=== PATIENT | female | born 1940 | race Caucasian/White ===

== ENCOUNTER 2018-02-25 08:52 | Emergency (ER) | payer MEDICARE, BC, SELFPAY ==
[2018-02-25 08:56] VITALS: BP 155/90; PULSE 80; RESP 12; TEMP 36.6; O2SAT 99
[2018-02-25 09:10] LABS: Bilirubin Negative (Negative); Blood Small (Negative); Clarity Clear; Glucose Negative (Negative); Ketones Negative (Negative); Leukocyte Esterase Small (Negative); Nitrite Negative (Negative); Specific Gravity <= 1.005 (1.005-1.025); Urobilinogen 0.2 EU/dL (Up TO 0.2)
[2018-02-25 09:21] LABS: Bacteria Few HPF (Negative); C & S Indicated? Yes; Casts Negative LPF (Negative); Crystals Negative HPF (Negative); Epithelial Cells Rare HPF (Negative); Mucus Negative (Negative); Other Cells Few Renal (Negative); RBC 0-2 (0-2); WBC 20-50 HPF (0-5)
--- NOTE | 2018-02-25 09:55 | ED.GENADUL ---
Disposition Clinical Impression: UTI (urinary tract infection) Disposition: HOME Instructions: Urinary Tract Infection in Women (ED) Additional Instructions: Please take antibiotic as prescribed. Please follow-up with your primary care physician. Return to the emergency department immediately for any worsening or new concerning symptoms. Prescriptions: Nitrofurantoin Monohyd/M-Cryst [Macrobid] 100 mg PO BID #9 cap Referrals: Missy Nur [Primary Care Provider] - Medical Decision Making - Lab Data Laboratory Tests 02/25/18 09:01 Urine Color Straw Urine Clarity Clear Urine pH 6.0 Ur Specific Candia <= 1.005 Urine Protein Negative Urine Ketones Negative Urine Blood Small H Urine Nitrite Negative Urine Bilirubin Negative Urine Urobilinogen 0.2 Ur Leukocyte Esterase Small H Urine RBC 0-2 Urine WBC 20-50 Ur Epithelial Cells Rare Urine Crystals Negative Urine Bacteria Few Urine Casts Negative Urine Mucus Negative Urine Other Few renal Ur Culture Indicated? Yes Urine Glucose Negative - Medical Decision Making 77-year-old female here with dysuria and frequent small urination over the past 2 days. Afebrile. Mild suprapubic abdominal tenderness. No flank pain or nausea vomiting. Plan to treat for urinary tract infection with Macrobid as patient has responded this in the past. History of Present Illness - General Chief complaint: Urinary Stated complaint: BLADDER INFECTION Time Seen by Provider: 02/25/18 09:34 Source: patient, RN notes reviewed Mode of arrival: ambulatory Limitations: no limitations - History of Present Illness Initial comments: 77-year-old female presents with chief complaint of urinary tract infection. Patient notes that she has had 2 days of painful urination and frequent small urination. Patient denies flank pain. No associated nausea or vomiting. No abdominal pain. No fever. Symptoms feel exactly the same where she has had a urinary tract infection in the past, years ago. Prior urinary tract infection responsive to Macrobid. - Related Data Esomeprazole Magnesium [Nexium] 40 mg PO DAILY tab-cap 12/13/13 Vit A/C/E AC/Znox/Cupric Oxide [Eye Vitamin-Minerals Tablet] 1 each PO DAILY 08/24/15 Aspirin [Aspir 81] 81 mg PO DAILY 11/25/17 Metoprolol [Lopressor] 50 mg PO BID 11/25/17 Rosuvastatin [Crestor] 20 mg PO QPM 11/25/17 Nitroglycerin [Nitrostat] 0.4 mg SL Q5 MIN PRN X3 PRN #0 11/26/17 Nitrofurantoin Monohyd/M-Cryst [Macrobid] 100 mg PO BID #9 cap 02/25/18 Allergies Allergy/AdvReac Type Severity Reaction Status Date / Time cyclobenzaprine Allergy Verified 02/25/18 08:58 Iodinated Contrast- Oral and Allergy Verified 02/25/18 08:58 IV Dye NSAIDS (Non-Steroidal Allergy Verified 02/25/18 08:58 Anti-Inflamma Review of Systems Constitutional: denies: fever Gastrointestinal: denies: abdominal pain, nausea, vomiting Genitourinary: dysuria, frequency. denies: hematuria Past Medical History - Past Medical History Medical history: CAD, cancer (breast), hyperlipidemia, hypertension Cerebral aneurysm Surgical history: angioplasty/stent - Social History Smoking status: former smoker General Exam - General Limitations: no limitations General appearance: alert, in no apparent distress - Eye Eye exam: Absent: scleral icterus, conjunctival injection - ENT ENT exam: Present: mucous membranes moist - Respiratory Respiratory exam: Present: normal lung sounds bilaterally. Absent: wheezes, rales, rhonchi - Cardiovascular Cardiovascular Exam: Present: regular rate, normal rhythm, normal heart sounds - GI/Abdominal GI/Abdominal exam: Present: soft, tenderness (Suprapubic), normal bowel sounds. Absent: distended, guarding, rebound, rigid, mass - Extremities Exam Extremities exam: Absent: pedal edema - Neurological Exam Neurological exam: Present: alert. Absent: altered - Skin Skin exam: Present: warm, dry, intact Course Vital Signs - 24 hr 02/25/18 08:56 Temperature 36.6 C Pulse 80 Respiratory 12 Rate Blood Pressure 155/90 Pulse Oximetry 99
[2018-02-25] MEDS: MacroBID 100 MG CAP PO (09:59)
[2018-02-25 10:12] VITALS: BP 155/90; PULSE 80; RESP 12; TEMP 36.6; O2SAT 99
== END 2018-02-25 10:13 | disposition home or self-care (01) ==
PROVIDERS: Emergency Provider Student in an Organized Health Care Education/Training Program; PCP Nurse Practitioner
DX: N39.0 Urinary tract infection, site not specified (principal); Z87.440 Personal history of urinary (tract) infections; I10 Essential (primary) hypertension
CPT/HCPCS: 99283 ×2; 81003; 81015; 87086

== ENCOUNTER 2018-03-23 00:26 | Outpatient (CLI) | payer MEDICARE, BC, SELFPAY ==
--- NOTE | 2018-03-23 13:45 | DI.MAMMO_ITS ---
SYMPTOMS/DIAGNOSIS: SCREENING, Z12.39, PERSONAL H/O BREAST CA, Z85.3 MAMMOGRAMS: Mammograms were interpreted according to the usual protocol including computer analysis with CAD system, tomosynthesis and C view imaging. Comparison is with the prior examinations. No masses or microcalcifications are seen. There is nothing to suggest malignancy. IMPRESSION: Negative mammogram. Routine screening is recommended. Category 1 , breast density C. MQSA ASSESSMENT OF FINDINGS: Negative. Category 1. Patient will receive a letter notifying them of these results. Bi-RADS category C. The breasts are heterogeneously dense, which may obscure small masses.
== END 2018-03-23 00:46 ==
PROVIDERS: PCP Nurse Practitioner; Visit Provider Nurse Practitioner
DX: Z12.31 Encounter for screening mammogram for malignant neoplasm of breast (principal); Z85.3 Personal history of malignant neoplasm of breast
CPT/HCPCS: 77063; 77067

== ENCOUNTER 2018-06-27 10:27 | Outpatient (CLI) | payer MEDICARE, BC, SELFPAY ==
[2018-06-27 10:50] LABS: Abs Immature Grans 0.02 k/cumm (0.0-0.09); Absolute Basophil Count 0.07 k/cumm (0.0-0.2); Absolute Eosinophil Count 0.25 k/cumm (0.0-0.7); Absolute Lymphocyte Count 2.01 k/cumm (1.2-3.4); Absolute Monocyte Count 0.73 k/cumm (0.11-0.7); Absolute Neutrophil Count 5.24 k/cumm (1.2-6.7); Basophils % 0.8; HCT 41.4 % (36.0-46.0); HGB 12.7 g/dL (12.0-15.5); Immature Grans % 0.2; Lymphocytes % 24.2; Mean Corp. HGB Concentration 30.7 g/dL (32.0-36.0); Mean Corpuscular Hemoglobin 30.1 pg (27.0-33.0); Mean Corpuscular Volume 98.1 fL (80-95); Mean Platelet Volume 10.1 fL (8.0-11.0); Monocytes % 8.8; Platelet Count 227 x1000/uL (130-400); RBC 4.22 m/cumm (4.00-5.20); RBC Distribution Width 12.9 % (11.7-14.6); White Blood Cell Count 8.32 k/cumm (4.4-10.8)
== END 2018-06-27 10:47 ==
PROVIDERS: PCP Nurse Practitioner; Visit Provider Nurse Practitioner
DX: R10.9 Unspecified abdominal pain (principal)
CPT/HCPCS: 36415; 85025

== ENCOUNTER 2018-06-27 10:38 | Outpatient (REF) | payer MEDICARE, BC, SELFPAY ==
[2018-06-27 13:18] LABS: Amylase 44 U/L (25-115); Lipase 177 U/L (73-393)
== END 2018-06-27 10:58 ==
LOC: NCHCN 10:38
PROVIDERS: PCP Nurse Practitioner; Visit Provider Nurse Practitioner
DX: R10.9 Unspecified abdominal pain (principal)
CPT/HCPCS: 83690; 82150

== ENCOUNTER → 2018-08-17 08:41 | Outpatient (BNVA) | payer MEDICARE, BC, SELFPAY | PROVIDERS: PCP Nurse Practitioner; Referring Provider Nurse Practitioner; Visit Provider Surgery | DX: R10.10 Upper abdominal pain, unspecified (principal); I10 Essential (primary) hypertension | CPT/HCPCS: 99214 ==

== ENCOUNTER 2018-12-08 03:55 | Outpatient (CLI) | payer MEDICARE, BC, SELFPAY ==
[2018-12-08 10:14] LABS: ALT 17 U/L (12-78); AST 23 U/L (15-37); Albumin 3.5 g/dL (3.4-5.0); Alkaline Phosphatase 138 U/L (46-116); Anion Gap 11.6 mmol/L (3-11); BUN 20 mg/dL (7-18); Bilirubin, Total 0.8 mg/dL (0.2-1.0); CO2 25.4 mmol/L (21.0-32.0); CREATININE 1.01 mg/dL (0.55-1.02); Calcium 8.7 mg/dL (8.5-10.1); Calculated LDL 93; Chloride 106 mmol/L (98-107); Cholesterol 169 mg/dL (50-200); Estimated GFR 53.15 (mL/min/1.73m2); Glucose 83 mg/dL (70-100); HDL Cholesterol 57 mg/dL (40-60); Potassium 4.4 mmol/L (3.5-5.1); Sodium 143 mmol/L (136-145); Total Protein 7.1 g/dL (6.4-8.2); Triglyceride 95 mg/dL (30-150)
== END 2018-12-08 04:15 ==
PROVIDERS: PCP Nurse Practitioner; Visit Provider Nurse Practitioner
DX: I10 Essential (primary) hypertension (principal); E78.5 Hyperlipidemia, unspecified
CPT/HCPCS: 36415; 80053; 80061; 83721

== ENCOUNTER 2018-12-31 13:09 | Outpatient (REF) | payer MEDICARE, BC, SELFPAY ==
[2018-12-31 15:14] LABS: Bilirubin Negative (Negative); Blood Trace-lysed (Negative); Clarity Clear (Clear); Glucose Negative (Negative); Ketones Negative (Negative); Leukocyte Esterase Small (Negative); Nitrite Negative (Negative); Specific Gravity <= 1.005 (1.005-1.025); Urobilinogen 0.2 EU/dL (Up TO 0.2); pH 6.5 (5-8)
[2018-12-31 15:24] LABS: Bacteria Rare HPF (Negative); C & S Indicated? Yes; Casts Negative LPF (Negative); Crystals Negative HPF (Negative); Epithelial Cells Rare HPF (Negative); Mucus Negative (Negative); RBC 0-2 (0-2)
== END 2018-12-31 13:29 ==
LOC: NCHCN 13:09
PROVIDERS: PCP Nurse Practitioner; Visit Provider Nurse Practitioner Family
DX: R30.0 Dysuria (principal)
CPT/HCPCS: 87077; 81003; 81015; 87086; 87186

== ENCOUNTER 2019-01-10 15:31 | Outpatient (REF) | payer MEDICARE, BC, SELFPAY ==
[2019-01-10 19:09] LABS: Bilirubin Negative (Negative); Blood Trace-lysed (Negative); Clarity Clear (Clear); Glucose Negative (Negative); Ketones Negative (Negative); Leukocyte Esterase Moderate (Negative); Nitrite Negative (Negative); Specific Gravity <= 1.005 (1.005-1.025); Urobilinogen 0.2 EU/dL (Up TO 0.2)
[2019-01-10 20:19] LABS: Epithelial Cells Negative HPF (Negative); WBC >50 HPF (0-5)
[2019-01-10 20:20] LABS: Bacteria Few HPF (Negative); C & S Indicated? Yes; Casts Negative LPF (Negative); Crystals Negative HPF (Negative); Mucus Negative (Negative); Other Cells Few Renal (Negative)
== END 2019-01-10 15:51 ==
LOC: NCHCN 15:31
PROVIDERS: PCP Nurse Practitioner; Visit Provider Nurse Practitioner Family
DX: N39.0 Urinary tract infection, site not specified (principal); R30.0 Dysuria
CPT/HCPCS: 87077; 81003; 81015; 87086; 87186

== ENCOUNTER 2019-03-29 01:32 | Outpatient (CLI) | payer MEDICARE, BC, SELFPAY ==
--- NOTE | 2019-03-29 14:10 | DI.MAMMO_ITS ---
EXAM: MG MAMMO SCREENING 60 MIN DUR CLINICAL HISTORY: SCREENING, PERSONAL H/O BREAST CA,Z85.3. TECHNIQUE: Mammograms were interpreted according to the usual protocol including computer analysis w [employer] CAD system, tomosynthesis and C-view imaging. COMPARISON: March 2018 FINDINGS: Breasts are of heterogeneously increased density with fairly symmetrical distribution of fibroglandul ar tissue. No dominant mass or clumped microcalcification is identified in either breast. Prior rig ht lumpectomy again noted. Comparison with previous examinations including March 2018 show no gr oss interval change in appearance of either breast. IMPRESSION: No specific evidence of malignancy at this time. Routine screening examinations are suggested at year ly intervals due to the history of breast carcinoma. Category 1, breast density category C. BI-RADS Cat 1 - Negative Breast Density - Category C - Heterogeneously dense
== END 2019-03-29 01:52 ==
PROVIDERS: PCP Nurse Practitioner; Visit Provider Nurse Practitioner
DX: Z12.31 Encounter for screening mammogram for malignant neoplasm of breast (principal); Z85.3 Personal history of malignant neoplasm of breast; Z98.890 Other specified postprocedural states
CPT/HCPCS: 77063; 77067

== ENCOUNTER 2019-10-11 01:54 | Outpatient (CLI) | payer MEDICARE, BC, SELFPAY ==
[2019-10-11 08:51] LABS: ALT 19 U/L (14-59); AST 20 U/L (15-37); Albumin 3.7 g/dL (3.4-5.0); Alkaline Phosphatase 131 U/L (46-116); Anion Gap 9.8 mmol/L (3-11); BUN 13 mg/dL (7-18); Bilirubin, Total 0.7 mg/dL (0.2-1.0); CO2 28.2 mmol/L (21.0-32.0); CREATININE 0.95 mg/dL (0.55-1.02); Calculated LDL 180 mg/dL (<100); Chloride 106 mmol/L (98-107); Cholesterol 276 mg/dL (<200); Estimated GFR 56.89 (mL/min/1.73m2); Glucose 93 mg/dL (74-106); HDL Cholesterol 59 mg/dL (40-60); Potassium 4.1 mmol/L (3.5-5.1); Sodium 144 mmol/L (136-145); Total Protein 7.6 g/dL (6.4-8.2); Triglyceride 188 mg/dL (<150)
== END 2019-10-11 02:14 ==
PROVIDERS: PCP Nurse Practitioner; Visit Provider Nurse Practitioner
DX: E78.5 Hyperlipidemia, unspecified (principal); I10 Essential (primary) hypertension
CPT/HCPCS: 36415; 80053; 80061

== ENCOUNTER 2020-04-10 03:50 | Outpatient (CLI) | payer MEDICARE, BC, SELFPAY ==
--- NOTE | 2020-04-10 13:55 | DI.MAMMO_ITS ---
EXAM: MG MAMMO SCREENING 60 MIN DUR CLINICAL HISTORY: SCREENING, Z12.39, PERSONAL H/O BREAST CA, Z85.3 TECHNIQUE: Mammograms were interpreted according to the usual protocol including computer analysis w [employer] CAD system, tomosynthesis and C-view imaging. COMPARISON: FINDINGS: The breasts are heterogeneously dense. The patient reportedly has a history of prior right lumpectom y. No dominant mass or clumped microcalcification is identified in either breast. The current exami nation is compared with previous examinations including March 2019 and there has been no gross in terval change in appearance in comparison with the prior studies. IMPRESSION: No specific evidence of malignancy at this time. Routine screening examinations are suggested at yea rly intervals due to the history of breast carcinoma. BI-RADS Category 1 - Negative Breast Density - Category C - Heterogeneously dense
== END 2020-04-10 04:10 ==
PROVIDERS: PCP Nurse Practitioner; Visit Provider Nurse Practitioner
DX: Z12.31 Encounter for screening mammogram for malignant neoplasm of breast (principal); Z85.3 Personal history of malignant neoplasm of breast
CPT/HCPCS: 77063; 77067

== ENCOUNTER 2020-04-30 10:26 | Outpatient (REF) | payer MEDICARE, BC, SELFPAY ==
[2020-04-30 19:18] LABS: Calculated LDL 129 mg/dL (<100); Cholesterol 250 mg/dL (<200); HDL Cholesterol 52 mg/dL (40-60); Triglyceride 348 mg/dL (<150)
== END 2020-04-30 10:46 ==
LOC: NCHCN 10:26
PROVIDERS: PCP Nurse Practitioner; Visit Provider Nurse Practitioner
DX: E87.5 Hyperkalemia (principal)
CPT/HCPCS: 80061

== ENCOUNTER 2020-05-02 11:31 | Emergency (ER) | payer MEDICARE, BC, SELFPAY ==
[2020-05-02] VITALS (9 sets, daily range): BP systolic 112–159; BP diastolic 49–92; PULSE 70–87; RESP 16–25; TEMP 36.4–36.7; O2SAT 95–98
--- NOTE | 2020-05-02 11:30 | RT.EKG_ITS ---
APPROVED REPORT Exam: Resting ECG Patient Location: E HR:71 bpm ECG Measurements Heart Rate 71 AXIS [place] 169 P 17 QRSd 75 QRS -12 QT 379 T -17 QTc 413 Conclusion Sinus rhythm...normal P axis, V-rate 60- 99 Inferior Q
--- NOTE | 2020-05-02 11:30 | DI.CT_ITS ---
EXAM: CT HEAD - STROKE PROTOCOL CLINICAL HISTORY: BOYLE, hx aneurysm. TECHNIQUE: Imaging Protocol: Axial computed tomography images with coronal and sagittal reformatted images were created and reviewed COMPARISON: No exams were available for comparison FINDINGS: Ventricles and Extra axial spaces: Normal in size and morphology for the patient's age. Hemorrhage: None. Cerebral parenchyma: There are areas of decreased attenuation in the white matter consistent with iliana rovascular ischemic change. There are areas of encephalomalacia bilaterally in the cerebral hemisphe res. No acute territorial infarct. Right-sided aneurysm clip. Midline shift: None. Brainstem/Cerebellum: Normal. Calvarium: Normal. Status post right craniotomy. Visualized Paranasal sinuses/Mastoids: Clear. Soft Tissues: Unremarkable. IMPRESSION: No acute intracranial process. RADIATION DOSE DELIVERED: 629.76mGy.cm Total DLP DATA REPOSITORY: All CT scans at this facility are submitted to the National Radiology Data Registry (NRDR) Dose Index Registry (DIR) with the [employer] (ACR). RADIATION OPTIMIZATION: All CT scans at this facility use at least one of these dose optimization te chniques: automated exposure control; mA and/or kV adjustment per patient size (includes targeted exa ms where dose is matched to clinical indication); or iterative reconstruction.
--- NOTE | 2020-05-02 11:40 | DI.RAD_ITS ---
EXAM: XR CHEST 1V IN DI DEPT CLINICAL HISTORY: headache TECHNIQUE: 2D digital imaging was performed. COMPARISON: CR CHEST 2 VIEWS PA,LAT from 11/25/2017 FINDINGS: MEDIASTINUM: Normal. HEART: Normal. PULMONARY VASCULATURE: Normal. LUNGS: Clear. PLEURAL SPACE: No pleural effusion or pneumothorax. BONE:Within normal limits for the patient's age. OTHER FINDINGS:Normal. IMPRESSION: No acute pulmonary findings. DATA REPOSITORY: RADIATION DOSE DELIVERED:
--- NOTE | 2020-05-02 11:40 | W.ED.GENAD ---
Discharge Plan Disposition Patient Disposition: HOME Condition: Stable Discharge Details Clinical Impression: Temporal arteritis Primary Care Provider: Missy Nur ED Provider: Reuben Nicole Home Meds and New Rx's Prescriptions: New prednisone 50 mg tablet 50 mg PO DAILY Qty: 10 RF: 0 Continued lisinopril 5 mg tablet 5 mg PO DAILY RF: 0 esomeprazole magnesium [Nexium] 40 MG capsule,delayed release(DR/EC) 40 mg PO DAILY RF: 0 Eye Vitamin and Minerals 1 EACH tablet 1 ea PO DAILY RF: 0 aspirin [Aspir-81] 81 MG tablet,delayed release (DR/EC) 81 mg PO DAILY RF: 0 rosuvastatin [Crestor] 20 MG tablet 20 mg PO QPM RF: 0 metoprolol tartrate 25 MG tablet 50 mg PO BID RF: 0 nitroglycerin [Nitrostat] 0.4 MG tablet, sublingual 0.4 mg Sublingual Q5 MIN PRN X3 PRNQty: 0 RF: 0 Discharge Instructions Instructions: Temporal Arteritis (ED) Additional Instructions: Prednisone as directed. Please watch for new or worsening symptoms and return to the ER for any concerns. I have placed you on the surgical list. I recommend you contact them on Monday to establish an appointment in the next week. Referrals: Laura Leonard DO [OSTEOPATHIC DOCTOR] - Discharge Data Discharge Date/Time-TO BE ENTERED AT DEPARTURE: 05/02/20 18:30 Medical Decision Making <SARITA Armas - Last Filed: 05/03/20 09:13> Patient is a pleasant 79-year-old female presenting today with chief complaint of left-sided neck and head pain. She reports that she initially started noting some left-sided neck pain yesterday. Reports initially it was intermittent and states it was more constant. It is now up into the left orthodoxy. She denies any visual changes. No fevers or chills. Patient does have history of right-sided cerebral CVA which she did undergo clipping for. He has any nausea vomiting. No trauma. No chest pain. No shortness of breath. On exam, patient is resting comfortably. She has no meningismus. No carotid bruit. Lungs cardiac exam are normal. Patient is tender over the left frontal. I am concerned with the headache and temporal pain for potential vasculitis. I did consider potential ruptured aneurysm. However, her presenting symptoms history DM] stenosis. Plan for labs and imaging. Discussed with the patient. Patient is currently denying any pain. Hold off on treatment at this time. FINDINGS: Lungs: Possible minimal left lower lobe atelectasis. Pleural space: Unremarkable. No pleural effusion. No pneumothorax. Heart/Mediastinum: Unremarkable. No cardiomegaly. Vasculature: Mild aortic atherosclerotic change and ectasia. Bones/joints: Right humeral head deformity consistent with previous trauma. IMPRESSION: Possible left lower lobe atelectasis. History does not suggest infection. FINDINGS: Brain: Mild right temporal, left frontal, left basal ganglia encephalomalacia. Cerebral volume loss noted. Scattered areas of decreased attenuation in the deep periventricular white matter consistent with small vessel ischemic change. No evidence for acute intracranial hemorrhage. Cerebral ventricles: No ventriculomegaly. Bones/joints: Status post right craniotomy change. Paranasal sinuses: Visualized sinuses are unremarkable. No fluid levels. Mastoid air cells: Visualized mastoid air cells are well aerated. Vasculature: Right-sided aneurysm clip identified. Soft tissues: Unremarkable. IMPRESSION: Senescent changes noted. No acute intracranial abnormality. Labs reviewed. No leukocytosis. Stable H&H. ESR is elevated at 42. Electrolytes normal. CRP normal limits. Called daughter, Bella [phone], who will come to pick patient up. She is concerned that patient was having sharp, quick pains that would make the wince. Reevaluated the patient. I do have a low suspicion for intacranial pathology at this time. She is now however, advising that she has a known aneurysm on the left side. We discussed her allergy to contast dye further, she states that she has received pretreatment historically with good improvement of her typical reaction. Previous reaction was feeling hot that lasted for extended period to time. Patient given IV methylprednisolone. Will also give IV Benadryl 1 hour prior to imaging. Consulted with Dr. Burgess regarding the patient's neck pain over the left orthodoxy as well as the elevated ESR. She advised that, if there is no evidence of bleed on CTA, patient should be treated for temporal arteritis with oral prednisone. She does not have any visual changes warranting admission. General surgery will see her in the office this week and discuss biopsy. This plan with the patient who is in agreement. At the end of my shift, care transition to Nitesh Nicole PA-C with imaging pending. If imaging is negative, plan to treat with oral steroids and refer for outpatient bx by general surgery. <SARITA Kidd - Last Filed: 05/02/20 18:05> I assumed care of this 79-year-old female from my colleague SARITA Orozco, please see her initial HPI and examination. At time of signout patient has been premedicated for CT imaging of head and neck CTA, planned for imaging at 4:30 PM. I personally examined patient upon shift change. She is resting comfortably and is currently asymptomatic. CTA of head and neck read by radiology as possible tiny left-sided aneurysm versus artifact from clips. No evidence for hemodynamically significant stenosis. I did review CT findings with Dr. Wright. It appears as though general surgery has already been consulted with, I have placed the patient on the general surgery list. I will initiate steroid therapy, 1 mg/kg, max dose of 60 mg/day. Patient weighs 54.4 kg, will place her on 50 mg/day. I will give her 10 days worth and then when she sees either her primary care provider or surgery as an outpatient they can begin to taper her down. I was able to speak both with the patient and the patient's daughter regarding steroids and CT imaging results. They have no additional questions or concerns and are comfortable with discharge. Patient understands that she will follow up with surgery this week. At time of discharge patient is asymptomatic, she denies any reaction to the CT imaging or any discomfort in the left side of her head or neck. She appears well, nontoxic, no acute distress, neurologically intact. Medical Records Medical records reviewed: Yes I reviewed the patient's medical records. HPI <SARITA Armas - Last Filed: 05/03/20 09:13> General Mode of arrival: wheelchair. Date/Time Provider Initiated Documentation: 05/02/20 11:40. Limitations to Documentation: no limitations. Information obtained by: patient and RN notes reviewed. History of Present Illness 79 year old F presents to the emergency department with the chief complaint of left sided headache, described as moderate, Quality is described as sharp, and is localized to the head. Patient neck. Patient started experiencing this day(s) (1) and it has been intermittent. No relieving factors improve symptom(s), No exacerbating factors reported . Patient notes no other symptoms.. Patient did receive the following treatments prior to arrival, none Related Data Home Medications Medication Instructions Recorded Confirmed esomeprazole magnesium [Nexium] 40 mg PO DAILY tab-cap 12/13/13 05/02/20 Eye Vitamin and Minerals 1 ea PO DAILY 08/24/15 05/02/20 aspirin [Aspir-81] 81 mg PO DAILY 11/25/17 05/02/20 metoprolol tartrate 50 mg PO BID 11/25/17 05/02/20 rosuvastatin [Crestor] 20 mg PO QPM 11/25/17 05/02/20 nitroglycerin [Nitrostat] 0.4 mg SUBLINGUAL Q5 MIN PRN X3 11/26/17 05/02/20 PRN #0 lisinopril 5 mg tablet 5 mg PO DAILY 08/10/18 05/02/20 prednisone 50 mg PO DAILY #10 tab 05/02/20 Previous Rx's Medication Instructions Recorded nitroglycerin [Nitrostat] 0.4 mg SUBLINGUAL Q5 MIN PRN X3 11/26/17 PRN #0 prednisone 50 mg PO DAILY #10 tab 05/02/20 Allergies Allergy/AdvReac Type Severity Reaction Status Date / Time aspirin Allergy Mild unknown Verified 05/02/20 12:34 sulfamethoxazole Allergy Mild unknown Verified 05/02/20 12:34 [From Bactrim] trimethoprim [From Bactrim] Allergy Mild unknown Verified 05/02/20 12:34 cyclobenzaprine Allergy Verified 05/02/20 12:34 Iodinated Contrast Media Allergy Verified 05/02/20 12:34 [Iodinated Contrast- Oral and IV Dye] NSAIDS (Non-Steroidal Allergy Verified 05/02/20 12:34 Anti-Inflamma atorvastatin [From Lipitor] AdvReac Severe unknown Verified 05/02/20 12:34 Review of Systems <SARITA Armas - Last Filed: 05/03/20 09:13> Constitutional Constitutional: Reports as per HPI, Denies chills, Reports fatigue, Denies fever(s), Denies frequent falls, Reports headache(s), Denies snoring and Denies weakness Eyes Eyes: Reports as per HPI, Denies blurry vision, Denies change in vision and Denies photophobia ENT Ears, Nose, Mouth, and Throat: Denies vertigo, Reports headache(s) and Reports neck pain Cardiovascular Cardiovascular: Reports as per HPI, Denies chest pain, Denies lightheadedness, Denies radiating jaw, neck or arm pain, Denies dyspnea and Denies dyspnea on exertion Respiratory Respiratory: Reports as per HPI, Denies chest congestion, Denies cough, Denies dyspnea, Denies dyspnea on exertion, Denies snoring, Denies stridor and Denies wheezing Gastrointestinal Gastrointestinal: Reports as per HPI, Denies abdominal pain, Denies change in bowel habits, Denies nausea and Denies vomiting Musculoskeletal Musculoskeletal: Reports as per HPI, Denies back pain, Denies myalgias, Denies muscle cramps, Reports neck pain and Denies numbness Integumentary/Breasts Skin/Breast: Reports as per HPI and Denies rash Neurologic Neurologic: Reports as per HPI, Denies abnormal movements, Denies abnormal speech, Denies behavioral changes, Denies confusion, Denies vertigo, Denies frequent falls, Reports headache(s), Denies localized weakness, Denies numbness, Denies sensory deficit and Denies weakness Psychiatric Psychiatric: Denies behavioral changes and Denies confusion Endocrine Endocrine: Reports fatigue Allergic/Immunologic Allergic/Immunologic: Denies wheezing PFSH <SARITA Armas - Last Filed: 05/03/20 09:13> Medical History (Updated 05/02/20 @ 18:03 by SARITA Kidd) Cerebral aneurysm Diverticulosis Fracture of humeral head GERD (gastroesophageal reflux disease) Hyperlipidemia Hypertension IBS (irritable bowel syndrome) Macular degeneration Subsequent ST elevation (STEMI) myocardial infarction of inferior wall Vertigo Surgical History Barretts Esophagus Breast, Mastectomy right, CA Endopyelotomy Retrograde herniated disc repair , Ectopic x2 Repair of inguinal hernia left Sigmoidoscopy x2 Social History Smoking/Tobacco Use Status: Former Tobacco Use Smoking risk assessment performed?: Yes Alcohol Intake: never Drug use: Never Do you feel safe in your relationship?: Yes Exam <SARITA Armas - Last Filed: 05/03/20 09:13> Const General: cooperative, healthy appearing, uncomfortable, no acute distress, well developed and well groomed Nutritional Appearance: average body habitus and well nourished Orientation: alert, awake and oriented x3 [facility] Head: normal to inspection, no palpable skull fracture, normocephalic, atraumatic, no palpable skull fracture, no raccoon eyes and temporal artery tenderness left temporal Ears: hearing grossly normal bilaterally, external ears normal and TM's normal bilaterally General nose exam: external nose normal Mouth: oral mucosae normal and moist mucous membranes Throat: posterior oropharynx normal Eyes General: appearance normal, both eyes and all related structures Visual Marinelli: normal visual marinelli by confrontation Alignment and Position: alignment normal Periorbital: periorbital findings normal Eyelids: eyelids normal Sclera: sclerae normal Cornea: corneas normal Pupils: PERRL EOM: EOM intact bilaterally Neck Neck: normal visual inspection, full ROM, no lymphadenopathy, no meningeal signs, supple, no anterior neck swelling, no lymphadenopathy noted, nontender and no JVD Thyroid: thyroid normal Carotids: normal carotid upstroke and no bruits Resp Effort & Inspection: normal respiratory effort, able to speak in complete sentences and no respiratory distress Auscultation: clear to auscultation bilaterally, no rales, no rhonchi and no wheezes Cardio Rate: regular rate Rhythm: regular rhythm Heart Sounds: S1 normal and S2 normal GI Inspection: normal to inspection and non-distended Palpation: soft, no hepatosplenomegaly, not firm, no guarding, not rigid and nontender Percussion: normal to percussion Auscultation: normal bowel sounds Back/Spine/Pelvis Cervical Spine: normal cervical lordosis and cervical ROM normal Skin General skin exam: no rashes or lesions noted Neuro General: patient alert, patient awake and patient oriented x3 Cranial Nerves: CN's II-XI intact bilaterally Cognition: normal cognition Speech: speech normal Gait: normal gait Motor: muscle tone normal throughout, strength 5/5 throughout, no pronator drift, no movement abnormalities noted and no fasciculations Sensory Exam: no sensory deficits noted Coordination: [id number] test normal and [id number] test normal Extrem General: normal to inspection, capillary refill normal, no pedal edema and no calf tenderness Psych Appearance: grossly normal and well kempt Mental Status: mental status grossly normal Speech and Movement: speech and movement normal Sign Out <SARITA Armas - Last Filed: 05/03/20 09:13> Sign Out Data: Sign Out Comment: Care transitioned to Reuben Nicole PA-C, with imaging pending. Last updated by Irma Orozco PA at 05/02/20 15:54
[2020-05-02 12:34] LABS: Abs Immature Grans 0.03 10^3/uL (0.0-0.06); Absolute Eosinophil Count 0.21 10^3/uL (0.0-0.7); Absolute Lymphocyte Count 1.96 10^3/uL (1.2-3.4); Absolute Monocyte Count 0.62 10^3/uL (0.1-0.8); Absolute Neutrophil Count 4.49 10^3/uL (1.2-6.7); Basophils % 1.3; Eosinophils % 2.8; HCT 41.1 % (36.0-46.0); HGB 12.9 g/dL (11.2-15.7); Immature Grans % 0.4; Lymphocytes % 26.5; MCH 30.4 pg (27.0-33.0); MCHC 31.4 % (32.0-36.0); MCV 96.7 fL (80-95); MPV 9.9 fL (8.0-11.0); Monocytes % 8.4; Neutrophils % 60.6; Nucleated RBC 0 %; Platelet Count 238 10^3/uL (130-400); RBC 4.25 10^6/uL (3.93-5.22); RDW 12.5 % (11.7-14.6); RDW-SD 44.3 fL; WBC 7.41 10^3/uL (4.4-10.8)
[2020-05-02 12:54] LABS: ALT 21 U/L (14-59); AST 23 U/L (15-37); Albumin 3.7 g/dL (3.4-5.0); Alkaline Phosphatase 129 U/L (46-116); Anion Gap 7.2 mmol/L (3-11); BUN 18 mg/dL (7-18); Bilirubin, Total 0.8 mg/dL (0.2-1.0); CO2 28.8 mmol/L (21.0-32.0); CREATININE 1.07 mg/dL (0.55-1.02); Calcium 9.3 mg/dL (8.5-10.1); Chloride 105 mmol/L (98-107); Estimated GFR 49.47 (mL/min/1.73m2); Glucose 86 mg/dL (74-106); Magnesium 1.9 mg/dL (1.8-2.4); Potassium 4.2 mmol/L (3.5-5.1); Sodium 141 mmol/L (136-145); Troponin I < 0.05 ng/mL (<0.06)
[2020-05-02 12:57] LABS: C-Reactive Protein < 0.05 mg/dL (0.0-0.3)
--- NOTE | 2020-05-02 12:57 | DI.VRAD_ITS ---
PROCEDURE INFORMATION: Exam: CT Head Without Contrast Exam date and time: 05/02/2020 12:44 PM Age: 79 years old Clinical indication: Altered mental status/memory loss TECHNIQUE: Imaging protocol: Computed tomography of the head without contrast. Other technique: STROKE PROTOCOL was implemented. COMPARISON: No relevant prior studies available. FINDINGS: Brain: Mild right temporal, left frontal, left basal ganglia encephalomalacia. Cerebral volume loss noted. Scattered areas of decreased attenuation in the deep periventricular white matter consistent with small vessel ischemic change. No evidence for acute intracranial hemorrhage. Cerebral ventricles: No ventriculomegaly. Bones/joints: Status post right craniotomy change. Paranasal sinuses: Visualized sinuses are unremarkable. No fluid levels. Mastoid air cells: Visualized mastoid air cells are well aerated. Vasculature: Right-sided aneurysm clip identified. Soft tissues: Unremarkable. IMPRESSION: Senescent changes noted. No acute intracranial abnormality. ASSESSMENT: ASPECTS (Julia Stroke Program Early CT Score) is 10. Dictated and Authenticated by: Erika Gonzalez MD. Ordering:PEYTON Solis MD
--- NOTE | 2020-05-02 12:59 | DI.VRAD_ITS ---
PROCEDURE INFORMATION: Exam: XR Chest, 1 View Exam date and time: 05/02/2020 12:49 PM Age: 79 years old Clinical indication: Other: BOYLE, HX anuerysm TECHNIQUE: Imaging protocol: XR of the chest Views: 1 view. COMPARISON: No relevant prior studies available. FINDINGS: Lungs: Possible minimal left lower lobe atelectasis. Pleural space: Unremarkable. No pleural effusion. No pneumothorax. Heart/Mediastinum: Unremarkable. No cardiomegaly. Vasculature: Mild aortic atherosclerotic change and ectasia. Bones/joints: Right humeral head deformity consistent with previous trauma. IMPRESSION: Possible left lower lobe atelectasis. Dictated and Authenticated by: Erika Gonzalez MD. Ordering:PEYTON Solis MD
[2020-05-02 13:20] LABS: ESR 42 mm/hr (0-30)
[2020-05-02] MEDS: methylPREDNISolone SUCC 40 MG VIAL IVP (13:41)
[2020-05-02] MEDS: diphenhydrAMINE 50 MG/ML VIAL 25 MG IVP (15:37)
--- NOTE | 2020-05-02 16:30 | DI.CT_ITS ---
EXAM: CT BRAIN NECK CTA CLINICAL HISTORY: Of left-sided pain, history of aneurysm. TECHNIQUE: Imaging Protocol: Axial CT angiography was performed with multi-slice acquisition and mu lti-planar and/or 3D reconstructions. CONTRAST MATERIAL: Intravenous: Omnipaque 350 Contrast volume:85 mL COMPARISON: CT HEAD WITHOUT CONTRAST from 11/01/2011 CT ABD PELVIS WO CONTRAST from 09/30/[address] HEAD - STROKE PROTOCOL from 05/02/2020 FINDINGS: CTA Brain W: Internal Carotid Arteries: Petrous: Normal. Cavernous: Atherosclerosis. No aneurysm, occlusion or significant stenosis. Cerebral: Normal. Middle Cerebral Arteries: Right: No aneurysm, occlusion or significant stenosis. Left: No aneurysm, occlusion or significant stenosis. Anterior Cerebral Arteries: Right: No aneurysm, occlusion or significant stenosis. Left: No aneurysm, occlusion or significant stenosis. There is an aneurysm clip which appears to be in the location of the anterior communicating artery. On the coronal images (series 5, image 24) there is a 2 mm enhancing focus anterior and to the left o f the clip. It may arise from the left anterior cerebral artery. Posterior cerebral Arteries: Right: No aneurysm, occlusion or significant stenosis. Left: No aneurysm, occlusion or significant stenosis. Vertebral Arteries: Right: No aneurysm, occlusion or significant stenosis. Left: No aneurysm, occlusion or significant stenosis. Basilar Artery: No aneurysm, occlusion or significant stenosis. CTA Neck W: Common Carotid: Right: No aneurysm, occlusion or significant stenosis. Atherosclerosis seen in the distal common car otid and the carotid bulb. Left: No aneurysm, occlusion or significant stenosis. Atherosclerosis seen in the distal common rousseau tid and the carotid bulb. External Carotid: Right: No aneurysm, occlusion or significant stenosis. Left: No aneurysm, occlusion or significant stenosis. Internal Carotid: Right: No aneurysm, occlusion or significant stenosis. Minimal atherosclerosis at the proximal ICA. Left: No aneurysm, occlusion or significant stenosis. Minimal atherosclerosis at the proximal ICA. Vertebral Artery: Right: No aneurysm, occlusion or significant stenosis. Left: No aneurysm, occlusion or significant stenosis. Lung Apices: Normal. Bones: Normal. Soft Tissues: Normal. IMPRESSION: 1. Status post aneurysm clip. 2. 2 mm enhancing focus to the left and anterior to the aneurysm clip. This may represent a small an eurysm and may arise from the left anterior stone cerebral artery. 3. Normal CTA examination of the neck. RADIATION DOSE DELIVERED: 258.19mGy.cm Total DLP 258.19mGy.cm Total DLP DATA REPOSITORY: All CT scans at this facility are submitted to the National Radiology Data Registry (NRDR) Dose Index Registry (DIR) with the [employer] (ACR). RADIATION OPTIMIZATION: All CT scans at this facility use at least one of these dose optimization te chniques: automated exposure control; mA and/or kV adjustment per patient size (includes targeted exa ms where dose is matched to clinical indication); or iterative reconstruction.
[2020-05-02] MEDS: Omnipaque 350 MG/ML 100 ML BTL IV (17:13)
--- NOTE | 2020-05-02 17:35 | DI.VRAD_ITS ---
PROCEDURE INFORMATION: Exam: CT Angiography Head With Contrast Exam date and time: 05/02/2020 4:35 PM Age: 79 years old Clinical indication: Other: Left sided pain, h/o aneurysm TECHNIQUE: Imaging protocol: Computed tomography angiography of the head with intravenous contrast. 3D rendering (Not supervised by radiologist): MIP and/or 3D reconstructed images were created by the technologist. Radiation optimization: All CT scans at this facility use at least one of these dose optimization techniques: automated exposure control; mA and/or kV adjustment per patient size (includes targeted exams where dose is matched to clinical indication); or iterative reconstruction. Contrast material: OMNIPAQUE 350; Contrast volume: 85 ml; Contrast route: INTRAVENOUS (IV); COMPARISON: CT HEAD - STROKE PROTOCOL 05/02/2020 12:44 PM FINDINGS: ANTERIOR CIRCULATION: Right internal carotid artery: Unremarkable. Intracranial segment is patent with no significant stenosis. No aneurysm. Right middle cerebral artery: There appears to be attenuated flow in the right M1 segment, nonacute. Right anterior cerebral artery: Unremarkable. No occlusion or significant stenosis. No aneurysm. Right-sided aneurysm clip noted. On axial assessment no definite aneurysm is identified. On coronal evaluation series 5, image 24 there is a subtle enhancing focus adjacent to the aneurysm clip. It measures approximately 2 mm. This may be appreciated sagittally images 22 and 23 series 6. Tiny left-sided aneurysm not excludable likely at the level of the anterior communicating artery. Left internal carotid artery: Unremarkable. Intracranial segment is patent with no significant stenosis. No aneurysm. Left middle cerebral artery: Unremarkable. No occlusion or significant stenosis. No aneurysm. Left anterior cerebral artery: The left A1 segment is diminutive, anatomic variant. POSTERIOR CIRCULATION: Right vertebral artery: Unremarkable. No occlusion or significant stenosis. No aneurysm. Left vertebral artery: Unremarkable. No occlusion or significant stenosis. No aneurysm. Basilar artery: Unremarkable. No occlusion or significant stenosis. No aneurysm. Right posterior cerebral artery: Unremarkable. No occlusion or significant stenosis. No aneurysm. Left posterior cerebral artery: Unremarkable. No occlusion or significant stenosis. No aneurysm. Brain: There is right temporal, left frontal and left basal ganglial encephalomalacia. There is some mild right frontal encephalomalacia. Cerebral ventricles: Normal. No ventriculomegaly. Bones/joints: Status post right craniotomy. Soft tissues: IMPRESSION: Possible tiny left-sided aneurysm versus artifact from clips. PROCEDURE INFORMATION: Exam: CT Angiography Neck With Contrast Exam date and time: 05/02/2020 4:35 PM Age: 79 years old Clinical indication: Other: Left sided pain, h/o aneurysm TECHNIQUE: Imaging protocol: Computed tomography angiography of the neck with intravenous contrast. 3D rendering (Not supervised by radiologist): MIP and/or 3D reconstructed images were created by the technologist. Contrast material: OMNIPAQUE 350; Contrast volume: 85 ml; Contrast route: INTRAVENOUS (IV); COMPARISON: CT HEAD - STROKE PROTOCOL 05/02/2020 12:44 PM FINDINGS: Right common carotid artery: No stenosis. No dissection or occlusion. Right internal carotid artery: There is mild plaque in the proximal right ICA without significant stenosis. Right external carotid artery: No occlusion or stenosis of the origin. Right vertebral artery: No stenosis. No dissection or occlusion. Left common carotid artery: No stenosis. No dissection or occlusion. Left internal carotid artery: There is minimal plaque in the proximal left ICA. Left external carotid artery: No occlusion or stenosis of the origin. Left vertebral artery: No stenosis. No dissection or occlusion. Bones/joints: No acute fracture. Soft tissues: Normal. No significant soft tissue swelling. IMPRESSION: No evidence for hemodynamically significant stenosis. REFERENCES: NASCET CRITERIA. The degree of internal carotid artery stenosis is based on NASCET criteria. Normal is no stenosis. Mild is less than 50% stenosis. Moderate is 50-69% stenosis. Severe is 70% to 99% stenosis. Total occlusion is no detectable patent lumen. Dictated and Authenticated by: Erika Gonzalez MD. Ordering:VANDANA Alexis MD
--- NOTE | 2020-05-02 17:52 | NUR.NOTE ---
Nursing Note: Referral to [facility] faxed for follow up. Spoke with Dr. Leonard about this patient. Orly Garcia
== END 2020-05-02 18:30 | disposition home or self-care (01) ==
PROVIDERS: Physician Assistant; Emergency Provider Physician Assistant; PCP Nurse Practitioner
DX: M31.6 Other giant cell arteritis (principal); I67.1 Cerebral aneurysm, nonruptured; R23.2 Flushing; T50.8X5D Adverse effect of diagnostic agents, subsequent encounter; I10 Essential (primary) hypertension
CPT/HCPCS: 70496; 70498; 80053; 85652; 93005; 96374; 96375; 99285; 70450; 71045; 83735; 84484; 85025; 86140; 93010; 99284; J1200; J3490

== ENCOUNTER → 2020-05-05 09:15 | Outpatient (BNVA) | payer MEDICARE, BC, SELFPAY | PROVIDERS: PCP Nurse Practitioner; Referring Provider Nurse Practitioner; Visit Provider Surgery | DX: M31.6 Other giant cell arteritis (principal); I10 Essential (primary) hypertension; I67.1 Cerebral aneurysm, nonruptured | CPT/HCPCS: 99213 ==

== ENCOUNTER 2020-05-15 01:01 | Outpatient (CLI) | payer MEDICARE, BC, SELFPAY ==
[2020-05-17 09:32] LABS: SARS-CoV-2 RNA Not Detected (NotDetected); SARS-CoV-2 RNA Source Nasal/Nares
== END 2020-05-15 01:21 ==
PROVIDERS: PCP Nurse Practitioner; Visit Provider Surgery
DX: Z01.818 Encounter for other preprocedural examination (principal)
CPT/HCPCS: U0003

== ENCOUNTER 2020-05-20 09:02 | Day surgery (SDC) | payer MEDICARE, BC, SELFPAY ==
--- NOTE | 2020-05-20 09:01 | ROE_ITS ---
Date of service: 05/20/20 Time of Service: 12:30 Operative Note Operative Note DATE OF PROCEDURE: 05/20/20 PRE-OP DIAGNOSIS: Left temporal headache, ? Giant cell arteritis POST-OP DIAGNOSIS: same PROCEDURE: Left Temporal artery bx SURGEON: Karley Klein ANESTHESIA: other (General/ ASA 2/ Paola Crane, HÉCTOR) ESTIMATED BLOOD LOSS: 3 PATHOLOGY: other (temporal artery) COMPLICATIONS: None Patient was transported to: same day Patient's condition: stable Indications: Mrs Alicea is a pleasant 79-year-old who was seen in the emergency department on May 02 with intermittent pain that radiated from her left jaw to the left methodist. 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 Apparently there is a small aneurysm on the left side which has n ot grown. She denies any visual changes or headaches. She said the pain was not constant it came and went. Labs revealed slightly elevated ESR. She was presumptively diagnosed with temporal arteritis and started on 50 mg of prednisone. Procedure Description: After informed consent was obtained the patient was taken to the Procedure room. The left methodist had been marked in [facility]. Monitors were applied and a time out was done. Some hair was clipped just above the ear. The artery was palpated and a saturnino was placed. The skin was then prepped and draped in a standard surgical fashion. The patient was then sedated with a little propofol. Next a small incision was made with a 15 blade. Dissection was taken down through the subcutaneous tissue with cautery. Using iris scissors the tissue was dissected until the temporal artery was identified. Doppler was used to verify that it was the artery. The Artery was then dissected out until I had 1 cm of artery exposed. mosquito clamps were applied on either end of the exposed artery and the artery was then transected. The 1 cm piece was removed from the operating room table and placed in formalin. The wound was irrigated. Bleeding was stopped with cautery. The dermis was then closed with 4-0 Vicryl suture. The skin was cleaned and dried. Skin affix was applied. The patient was allowed to wake up and was then taken to [facility] in stable condition. Needle, sponge and instrument counts were correct at the end of the case.
--- NOTE | 2020-05-20 09:01 | W.PM.DSUDISC ---
Discharge Plan Disposition Patient Disposition: HOME Condition: Stable Discharge Details Reason For Visit: temporal artery biopsy Attending Provider: Karley Klein Primary Care Provider: Missy Nur Home Meds and New Rx's Prescriptions: Continued lisinopril 5 mg tablet 5 mg PO DAILY RF: 0 ezetimibe [Zetia] 10 mg tablet 10 mg PO DAILY RF: 0 esomeprazole magnesium [Nexium] 40 MG capsule,delayed release(DR/EC) 40 mg PO DAILY RF: 0 Eye Vitamin and Minerals 1 EACH tablet 1 ea PO DAILY RF: 0 aspirin [Aspir-81] 81 MG tablet,delayed release (DR/EC) 81 mg PO DAILY RF: 0 metoprolol tartrate 25 MG tablet 50 mg PO BID RF: 0 nitroglycerin [Nitrostat] 0.4 MG tablet, sublingual 0.4 mg Sublingual Q5 MIN PRN X3 PRNQty: 0 RF: 0 prednisone 50 mg tablet 25 mg PO DAILY RF: 0 Discharge Instructions Additional Instructions: Activity at Home after surgery: 1. As tolerated Diet, Nutrition, & wound healin. As tolerated Pain Medications: 1. Tylenol 650 mg every 6 hours as needed For Constipation: 1. Take Milk of Magnesia or MiraLax as needed for constipation Other: 1. You may shower daily. Do not scrub the incisions 2. Do not soak the incisions for 1 week Wound Care: 1. Keep the incisions clean and dry Please call our office if you develop: 1. Fevers >101.5 2. Nausea or Vomiting 3. Worsening pain 4. Redness and thick discharge from the wounds If after hours please call the Hospital at and ask to speak to the on-call surgeon Referrals: Missy Nur [Primary Care Provider] - (7-10 days) Activity:: Activity as Tolerated Diet:: As Tolerated Discharge Orders Discharge Orders: Discharge Order (Routine); Ordered 05/20/20 Ordered By: Karley Klein
[2020-05-20 09:48] VITALS: BP 158/74; PULSE 80; RESP 18; TEMP 36.4; O2SAT 96
[2020-05-20] MEDS: Lactated Ringers 1,000 ML 80 ML IV (10:35)
[2020-05-20] MEDS: Lidocaine 1% Multi-Dose 50 ML VIAL (11:52)
--- NOTE | 2020-05-20 12:10 | ART_PTH ---
PATIENT: Nixon LOC: [facility] U#:[id number] AGE/SX: 79/F ROOM: RE05/20/[address]: Karley Klein MD : 1940 BED: DIS: 05/20/2020 SPEC #: [id number] RECD: 05/20/20 13:10 STATUS: WINSOME REQ #: [id number] RICK: 05/20/20 12:[address]: Karley Klein DEPT: Surgical Specimen RECD BY: Kourtney Campbell ENTERED: 05/20/20 13:11 SP TYPE: Artery OTHR DR: Missy Nur Tissues: 1 - ARTERY BIOPSY Procedures: GROSS AND MICRO LEVEL 4 Comments: [id number]
[2020-05-20 12:55] VITALS: BP 145/89; PULSE 79; RESP 14; TEMP 36.7; O2SAT 97
== END 2020-05-20 13:34 | disposition home or self-care (01) ==
LOC: SUR 09:03
PROVIDERS: PCP Nurse Practitioner; Visit Provider Surgery
PROC: (CPT 37609; principal; 2020-05-20 10:00)
DX: R51.9 Headache, unspecified (principal)
CPT/HCPCS: 37609; 88305; J2001; J2704

== ENCOUNTER → 2020-09-14 09:50 | Outpatient (BNVA) | payer MEDICARE, BC, SELFPAY | PROVIDERS: PCP Nurse Practitioner; Referring Provider Nurse Practitioner; Visit Provider Psychiatry & Neurology Neurology | DX: I67.1 Cerebral aneurysm, nonruptured (principal); I10 Essential (primary) hypertension | CPT/HCPCS: 99215 ==

== ENCOUNTER 2020-10-23 01:34 | Outpatient (CLI) | payer MEDICARE, BC, SELFPAY ==
[2020-10-23 08:54] LABS: HCT 40.3 % (36.0-46.0); HGB 12.3 g/dL (11.2-15.7); MCH 29.5 pg (27.0-33.0); MCHC 30.5 % (32.0-36.0); MCV 96.6 fL (80-95); MPV 10.3 fL (8.0-11.0); Platelet Count 214 10^3/uL (130-400); RBC 4.17 10^6/uL (3.93-5.22); RDW 12.4 % (11.7-14.6); RDW-SD 44.4 fL
[2020-10-23 09:52] LABS: ALT 21 U/L (14-59); AST 18 U/L (15-37); Albumin 3.5 g/dL (3.4-5.0); Alkaline Phosphatase 125 U/L (46-116); Anion Gap 8.4 mmol/L (3-11); BUN 15 mg/dL (7-18); Bilirubin, Total 0.6 mg/dL (0.2-1.0); CO2 27.6 mmol/L (21.0-32.0); Calcium 9.2 mg/dL (8.5-10.1); Calculated LDL 148 mg/dL (<100); Chloride 110 mmol/L (98-107); Cholesterol 235 mg/dL (<200); Estimated GFR 53.48 (mL/min/1.73m2); Glucose 86 mg/dL (74-106); HDL Cholesterol 58 mg/dL (40-60); Potassium 4.2 mmol/L (3.5-5.1); Sodium 146 mmol/L (136-145); Total Protein 7.3 g/dL (6.4-8.2); Triglyceride 145 mg/dL (<150)
== END 2020-10-23 01:35 | disposition home or self-care (01) ==
LOC: LBO 01:34
PROVIDERS: PCP Nurse Practitioner; Visit Provider Nurse Practitioner
DX: I10 Essential (primary) hypertension (principal); E78.5 Hyperlipidemia, unspecified
CPT/HCPCS: 36415; 80053; 80061; 85027

== ENCOUNTER 2021-04-16 00:25 | Outpatient (CLI) | payer MEDICARE, BC, SELFPAY ==
--- NOTE | 2021-04-16 | DI.MAMMO_ITS ---
Exam(s) MG MAMMO SCREENING 60 MIN DUR EXAM: MAMMO SCREENING 60 MIN DUR CLINICAL HISTORY: SCREENING, PERSONAL H/O BREAST CA,Z85.3 TECHNIQUE: Mammograms were interpreted according to the usual protocol including computer analysis w [employer] CAD system, tomosynthesis and C-view imaging. COMPARISON: 2011 through 2019 FINDINGS: The breasts are composed of heterogeneously dense fibroglandular densities, Breast Density category C . No suspicious masses or suspicious microcalcifications are seen. Benign calcifications and vascular calcifications. No skin thickening or abnormal axillary lymph nodes are seen. Biopsy marker clip posterior right sheyla ast. There has been no significant change from prior exams. IMPRESSION: . BI-RADS Cat 2 - Benign Findings Yearly screening mammography is recommended. Breast Density Category C, heterogeneously Dense. The mammogram demonstrates the patient's breast tissue is dense. Dense breast tissue is very common a nd is not abnormal but dense breast tissue can make it harder to find cancer on a mammogram. Also, de nse breast tissue may increase breast cancer risk. This information about the result of the mammogram report was provided to the patient to raise their awareness. Use this report when you speak with the patient about their risks for breast cancer, which includes their family history. At that time, you may recommend additional screening tests (Ultrasound or MRI) as they might be useful based on their r isk. A negative radiographic report should not delay biopsy if a dominant or clinically suspicious mass is present. Up to ten percent of cancers are not identified on mammography. A negative report may reinforce clinical impression. Adenosis and dense breasts may obscure an underlying neoplasm. False positive reports average 6 to 10%.
== END 2021-04-16 00:45 ==
PROVIDERS: PCP Nurse Practitioner; Visit Provider Nurse Practitioner
DX: Z12.31 Encounter for screening mammogram for malignant neoplasm of breast (principal); Z85.3 Personal history of malignant neoplasm of breast
CPT/HCPCS: 77063; 77067

== ENCOUNTER 2021-05-12 02:37 | Outpatient (CLI) | payer MEDICARE, BC, SELFPAY ==
[2021-05-12 11:25] LABS: Calculated LDL 143 mg/dL (<100); Cholesterol 222 mg/dL (<200); HDL Cholesterol 41 mg/dL (40-60); Triglyceride 190 mg/dL (<150)
== END 2021-05-12 02:38 | disposition home or self-care (01) ==
LOC: LBO 02:37
PROVIDERS: PCP Nurse Practitioner; Visit Provider Nurse Practitioner
DX: E78.5 Hyperlipidemia, unspecified (principal)
CPT/HCPCS: 36415; 80061

== ENCOUNTER 2021-07-06 03:20 | Outpatient (CLI) | payer MEDICARE, BC, SELFPAY ==
[2021-07-06 11:30] LABS: Calculated LDL 91 mg/dL (<100); Cholesterol 175 mg/dL (<200); HDL Cholesterol 53 mg/dL (40-60); Triglyceride 155 mg/dL (<150)
== END 2021-07-06 03:21 | disposition home or self-care (01) ==
PROVIDERS: PCP Nurse Practitioner; Visit Provider Nurse Practitioner
DX: E78.5 Hyperlipidemia, unspecified (principal)
CPT/HCPCS: 36415; 80061

== ENCOUNTER 2021-09-17 08:29 | Emergency (ER) | payer MEDICARE, BC, SELFPAY ==
[2021-09-17 08:36] VITALS: BP 113/84; PULSE 78; RESP 18; TEMP 37; O2SAT 98
--- NOTE | 2021-09-17 09:00 | ED.GENADUL_ITS ---
Discharge Plan Disposition Patient Disposition: HOME Condition: Improving Discharge Details Clinical Impression: Rt flank pain Primary Care Provider: Kaye Mathis ED Provider: Reuben Nicole Home Meds and New Rx's Prescriptions: New lidocaine [Lidoderm] 5 % adhesive patch,medicated 1 patch topical DAILY Qty: 1 0RF Rx Instructions: leave on most painful area for up to 12 hrs Continued lisinopril 5 mg tablet 5 mg PO DAILY 0RF ezetimibe [Zetia] 10 mg tablet 10 mg PO DAILY 0RF esomeprazole magnesium [Nexium] 40 MG capsule,delayed release(DR/EC) 40 mg PO DAILY 0RF Eye Vitamin and Minerals 1 EACH tablet 1 ea PO DAILY 0RF Label Comments: ARED2 (Prezavision) for macular degeneration aspirin [Aspir-81] 81 MG tablet,delayed release (DR/EC) 81 mg PO DAILY 0RF metoprolol tartrate 25 MG tablet 50 mg PO BID 0RF nitroglycerin [Nitrostat] 0.4 MG tablet, sublingual 0.4 mg Sublingual Q5 MIN PRN X3 PRNQty: 0 0RF Discharge Instructions Instructions: Flank Pain (ED) Additional Instructions: Your laboratory values and CT imaging here in the ER today did not reveal any obvious emergent process. You did respond nicely to the Lidoderm patch and I have provided you with a prescription. Your CT did reveal incidental left lung findings although I do not believe they are what brought you to the ER today. We have tested you for Covid, this test is pending, and I do recommend quarantining until you get the results hopefully the next 2-3 days and this test is negative. Otherwise I recommend contacting your primary care provider later today or tomorrow to make them aware of your ER visit, ongoing symptoms, need for outpatient reevaluation, and follow-up on both your symptoms today and the incidental findings of your left lung Medical Decision Making 80-year-old female presents with right flank pain at the present for at least 1 week, worse with movement and occasionally food intake. Patient states that she is concerned she may have a kidney stone but has no history of such. Also reports this feels vaguely similar to when she had gallstone pancreatitis. Clinically she appears well, nontoxic, nonsurgical abdominal examination, and hemodynamically stable. Clinically this appears to have a musculoskeletal component and I would like to try a Lidoderm patch as well as obtain IV access, routine screening laboratory values and CT imaging. She denies any chest pain, fever, shortness of breath whatsoever. There is no ripping or tearing sensation associated with her discomfort Laboratory values are grossly unremarkable. Urinalysis reveals no signs of obvious infection or hematuria. Given she has no hematuria and clinically this is not appear to be classic renal stone, will obtain a CT of the abdomen and pelvis with contrast for further evaluation. Patient reports that the Lidoderm patch is helping greatly CT imaging does not reveal any obvious emergent intra-abdominal process but there are some incidental lung findings Discussed CT findings with patient and family. She has not been vaccinated for COVID. Will obtain a Covid swab. We also discussed the importance of outpatient follow-up with primary care provider regarding her right flank pain but also the importance of follow-up and potential further evaluation of her incidental lung findings. Patient and family are comfortable with this plan and have no additional questions or concerns. Patient reports that her pain is nearly completely resolved with a Lidoderm patch. Strict discharge and return precautions were provided. This documentation was generated using vMobo dictation system, please disregard any oddities of phrase or misspellings. Medical Records Medical records reviewed: Yes I reviewed the patient's medical records. Imaging Data Radiologic Study: Attestation: I personally reviewed and interpreted this imaging study as follows: Imaging: CT Scan Radiologist's impression: Exam(s) CT ABDOMEN PELVIS W EXAM: CT ABDOMEN PELVIS W INDICATION: R flank pain. COMPARISON: CT ABD PELVIS WO CONTRAST from 09/30/2015 CR,XR XR CHEST 1V IN DI DEPT from 05/02/[address] BRAIN NECK CTA from 05/02/2020 TECHNIQUE: FINDINGS: CT examination of the abdomen and pelvis was performed with a bolus infusion of 100 cc of Omnipaque 350. Images obtained through the lung show areas nonspecific pulmonary opacity with s ome ground-glass component but predominantly reticulo nodular, these are of uncertain chronicity but were not present on prior CT of September 2015. Possibility of infectious process including COVID pneumonia not excluded. Please correlate clinically.. Gallbladder has been surgically removed. There is gas in the biliary tract, the patient has reported history prior bile duct instrumentation period no biliary dilatation to suggest obstruction. Normal appearance of pancreatic duct and common bile duct. No focal hepatic lesion.. Pancreas appears normal. Spleen is unremarkable in appearance. Adrenals appear normal. The kidneys are unremarkable with no evidence of hydronephrosis, nephrolithiasis, or renal mass.. Urinary bladder unremarkable but distended.. Abdominal aorta is of normal diameter and no major vascular abnormality is seen. No abdominal wall hernia. No abdominal or pelvic adenopathy. 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 Appendix is normal. No evidence of diverticulitis or bowel obstruction. IMPRESSION: No evidence of acute process. Please correlate clinically the bibasilar intrapulmonary infiltrates described above, acute versus chronic... Lab Data Lab results reviewed: Yes I reviewed the patient's lab results. Labs: 09/17/21 08:54 Urine - Reflex from Ua Urine Culture - Pending Laboratory Tests Range/Units 09/17/21 09/17/21 09/17/21 08:54 09:09 09:09 WBC (4.4-10.8) 10^3/uL 7.83 RBC (3.93-5.22) 10^6/uL 4.24 Hgb (11.2-15.7) g/dL 12.6 Hct (36.0-46.0) % 41.5 MCV (80-95) fL 97.9 H MCH (27.0-33.0) pg 29.7 MCHC (32.0-36.0) % 30.4 L RDW (11.7-14.6) % 12.4 Plt Count (130-400) 10^3/uL 214 MPV (8.0-11.0) fL 10.3 Immature Gran % 0.1 Neutrophils % 72.3 Lymphocytes % 18.6 Monocytes % 6.3 Eosinophils % 1.4 Basophils % 1.3 Nucleated RBC % % 0 Absolute Neutrophils (1.2-6.7) 10^3/uL 5.66 Absolute Lymphocytes (1.2-3.4) 10^3/uL 1.46 Absolute Monocytes (0.1-0.8) 10^3/uL 0.49 Absolute Eosinophils (0.0-0.7) 10^3/uL 0.11 Absolute Basophils (0.0-0.2) 10^3/uL 0.10 Sodium (136-145) mmol/L 143 Potassium (3.5-5.1) mmol/L 4.4 Chloride (98-107) mmol/L 107 Carbon Dioxide (21.0-32.0) mmol/L 26.7 Anion Gap (3-11) mmol/L 9.3 BUN (7-18) mg/dL 17 Creatinine (0.55-1.02) mg/dL 1.0 Estimated GFR/1.73 m2 (mL/min/1.73m2) 53.35 Glucose (74-106) mg/dL 100 Calcium (8.5-10.1) mg/dL 9.1 Total Bilirubin (0.2-1.0) mg/dL 0.7 AST (15-37) U/L 20 ALT (14-59) U/L 21 Alkaline Phosphatase (46-116) U/L 123 H Total Protein (6.4-8.2) g/dL 7.7 Albumin (3.4-5.0) g/dL 3.6 Lipase (73-393) U/L 101 Urine Color (Yellow) Straw Urine Clarity (Clear) Clear Urine pH (5-8) 7.0 Ur Specific [place] (1.005-1.025) 1.015 Urine Protein (Negative) mg/dL Negative Urine Ketones (Negative) mg/dL Negative Urine Blood (Negative) Negative Urine Nitrite (Negative) Negative Urine Bilirubin (Negative) Negative Urine Urobilinogen (Up TO 0.2) EU/dL 0.2 Ur Leukocyte Esterase (Negative) Trace H Urine RBC (0-2) HPF Negative Urine WBC (0-5) HPF 0-2 Ur Epithelial Cells (Negative) HPF Few Urine Crystals (Negative) HPF Negative Urine Bacteria (Negative) HPF Negative Urine Casts (Negative) LPF Negative Urine Mucus (Negative) Negative Ur Culture Indicated? Yes Urine Glucose (Negative) mg/dL Negative HPI General Mode of arrival: ambulatory . Date/Time Provider Initiated Documentation: 09/17/21 08:30 . Limitations to Documentation: no limitations . Information obtained by: patient and family . HPI Narrative: 80-year-old female, past medical history of laparoscopic cholecystectomy, gallstone pancreatitis, GERD, Tracy's esophagitis, IBS, hypertension, hiatal hernia, STEMI, presenting to the ER today for evaluation of right flank pain that has been present for at least 1 week. Patient reports the pain overall is intermittent, worse with movement, occasionally worse with food. She did take Tylenol last night with some relief. Reports the pain currently is dull, aching, 2 or 3 out of 10. She denies any other symptoms such as fever, chest pain, shortness of breath, nausea, vomiting, change of appetite, dysuria, hematuria, diarrhea or constipation. She denies recent illness or trauma. Patient wonders if she could have a kidney stone but denies history of such. She also reports the pain feels somewhat similar to the time she had gallstone pancreatitis. Related Data Home Medications Medication Instructions Recorded Confirmed esomeprazole magnesium 40 mg 40 mg PO DAILY tab-cap 12/13/13 09/17/21 capsule,delayed release (Nexium) vit A 7,160 unit-vit C 113 mg-vit 1 ea PO DAILY 08/24/15 09/17/21 E 100 [id number] tablet (Eye Vitamin and Minerals) aspirin 81 mg tablet,delayed 81 mg PO DAILY 11/25/17 09/17/21 release (Aspir-) metoprolol tartrate 25 mg tablet 50 mg PO BID 11/25/17 09/17/21 nitroglycerin 0.4 mg sublingual 0.4 mg SUBLINGUAL Q5 MIN PRN X3 11/26/17 09/17/21 tablet (Nitrostat) PRN #0 lisinopril 5 mg tablet 5 mg PO DAILY 08/10/18 09/17/21 ezetimibe 10 mg tablet (Zetia) 10 mg PO DAILY 05/05/20 09/17/21 lidocaine 5 % topical patch 1 patch TOPICAL DAILY #1 ea 09/17/21 (Lidoderm) Previous Rx's Medication Instructions Recorded nitroglycerin 0.4 mg sublingual 0.4 mg SUBLINGUAL Q5 MIN PRN X3 11/26/17 tablet (Nitrostat) PRN #0 lidocaine 5 % topical patch 1 patch TOPICAL DAILY #1 ea 09/17/21 (Lidoderm) Allergies Allergy/AdvReac Type Severity Reaction Status Date / Time sulfamethoxazole Allergy Mild unknown Verified 09/17/21 08:39 [From Bactrim] trimethoprim [From Bactrim] Allergy Mild unknown Verified 09/17/21 08:39 cyclobenzaprine Allergy Verified 09/17/21 08:39 Iodinated Contrast Media Allergy Verified 09/17/21 08:39 [Iodinated Contrast- Oral and IV Dye] NSAIDS (Non-Steroidal Allergy Verified 09/17/21 08:39 Anti-Inflamma atorvastatin [From Lipitor] AdvReac Severe unknown Verified 09/17/21 08:39 General Stated Complaint: Abd Prob ALMA: 3 Review of Systems Constitutional Constitutional: Denies fever(s) and Denies weakness ENT Ears, Nose, Mouth, and Throat: Denies neck pain Cardiovascular Cardiovascular: Denies chest pain and Denies dyspnea Respiratory Respiratory: Denies dyspnea Gastrointestinal Gastrointestinal: Reports abdominal pain, Denies constipation, Denies diarrhea, Denies nausea and Denies vomiting Genitourinary Genitourinary: Denies abnormal vaginal bleeding, Denies dysuria and Denies vaginal discharge Musculoskeletal Musculoskeletal: Reports back pain (Right flank), Denies neck pain and Denies tingling Integumentary/Breasts Skin/Breast: Denies rash Neurologic Neurologic: Denies tingling and Denies weakness PFSH All Active Problems (Updated 09/17/21 @ 11:20 by SARITA Kidd) Rt flank pain (Acute) Gall stone pancreatitis (Acute) S/P laparoscopic cholecystectomy (Acute) Hx of gastroesophageal reflux (GERD) (Acute) History of hypertension (Acute) Traumatic closed displaced fracture of proximal end of right humerus with routine healing (Acute 11/16/15) Fracture of humeral head (Acute) IBS (irritable bowel syndrome) (Chronic) Diverticulosis (Chronic) GERD (gastroesophageal reflux disease) (Chronic) Cerebral aneurysm (Acute) 10/16/00 Pt has not had any current issues r/t to this dx Hyperlipidemia (Chronic) Hypertension (Chronic) 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 last seen 02/2020 Macular degeneration (Chronic) Vertigo (Acute) Medical History Barretts esophagus Breast cancer in female Breast cancer screening Chronic back pain Diverticulosis of colon Eczema Fracture of proximal end of humerus Hematuria Hiatal hernia History of IBS Lichen planus Lumbar herniated disc STEMI (ST elevation myocardial infarction) Subarachnoid hemorrhage Surgical History Barretts Esophagus Breast, Mastectomy right, [place] pt. states it was not a mastectomy but a lumpectomy Endopyelotomy Retrograde herniated disc repair L5-S1 in 1973 for L leg radiculopathy , Ectopic x2 Repair of inguinal hernia left S/P dilatation of esophageal stricture numerous! 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 Current gender identity: female What is your relationship status?: Panel score (0-1 are the most socially isolated patients): 0 Do you feel safe at home: Yes Do you feel safe in your relationship?: Yes Additional Social history: lives alone Exam Const General: cooperative, healthy appearing, comfortable and no acute distress Orientation: alert, awake and oriented x3 HENMT Head: normal to inspection, normocephalic and atraumatic Mouth: moist mucous membranes Eyes General: appearance normal, both eyes and all related structures Conjunctivae: conjunctivae normal Neck Neck: normal visual inspection, trachea midline and supple Chest Chest: normal inspection of the chest and normal palpation of entire chest wall Resp Effort & Inspection: normal respiratory effort and able to speak in complete sentences Auscultation: clear to auscultation bilaterally Cardio Rate: regular rate Rhythm: regular rhythm GI Inspection: normal to inspection Palpation: soft, not firm, no guarding, no pulsatile masses and tender (Mild upper right flank) Negative for with no rebound tenderness Auscultation: normal bowel sounds Back/Spine/Pelvis Back: no CVA tenderness and back tenderness (Mild right flank) Skin General skin exam: no rashes or lesions noted Neuro General: patient alert, patient awake, patient oriented x3, moves all extremities and no focal motor deficits Cognition: normal cognition Speech: speech normal Gait: normal gait Motor: muscle tone normal throughout Sensory Exam: no sensory deficits noted Extrem General: normal to inspection and full ROM Psych Appearance: grossly normal Mental Status: mental status grossly normal Course Vital Signs Vital signs: Vital Signs Temperature 37 C 09/17/21 08:36 Pulse 78 09/17/21 08:36 Respiratory Rate 18 09/17/21 08:36 Blood Pressure 113/84 09/17/21 08:36 Pulse Oximetry 98 09/17/21 08:36 Temperature 37 C 09/17/21 08:36 Temperature Source Temporal Artery Scan 09/17/21 08:36 Pulse 78 03/18/22 08:36 Respiratory Rate 18 09/17/21 08:36 Respiratory Effort Non-Labored 09/17/21 08:41 Blood Pressure 113/84 09/17/21 08:36 Blood Pressure Position Sitting 09/17/21 08:36 Pulse Oximetry 98 09/17/21 08:36 Oxygen Delivery Method Room Air 09/17/21 08:36 Oxygen Flow Rate 0 09/17/21 08:36
[2021-09-17 09:16] LABS: Abs Immature Grans 0.01 10^3/uL (0.0-0.06); Absolute Eosinophil Count 0.11 10^3/uL (0.0-0.7); Absolute Lymphocyte Count 1.46 10^3/uL (1.2-3.4); Absolute Monocyte Count 0.49 10^3/uL (0.1-0.8); Absolute Neutrophil Count 5.66 10^3/uL (1.2-6.7); Basophils % 1.3; Eosinophils % 1.4; HCT 41.5 % (36.0-46.0); HGB 12.6 g/dL (11.2-15.7); Immature Grans % 0.1; Lymphocytes % 18.6; MCH 29.7 pg (27.0-33.0); MCHC 30.4 % (32.0-36.0); MCV 97.9 fL (80-95); MPV 10.3 fL (8.0-11.0); Monocytes % 6.3; Neutrophils % 72.3; Nucleated RBC 0 %; Platelet Count 214 10^3/uL (130-400); RBC 4.24 10^6/uL (3.93-5.22); RDW 12.4 % (11.7-14.6); WBC 7.83 10^3/uL (4.4-10.8)
[2021-09-17 09:17] LABS: Bilirubin Negative (Negative); Blood Negative (Negative); Clarity Clear (Clear); Glucose Negative (Negative); Ketones Negative (Negative); Leukocyte Esterase Trace (Negative); Nitrite Negative (Negative); Specific Gravity 1.015 (1.005-1.025); Urobilinogen 0.2 EU/dL (Up TO 0.2)
[2021-09-17 09:24] LABS: Bacteria Negative HPF (Negative); C & S Indicated? Yes; Casts Negative LPF (Negative); Crystals Negative HPF (Negative); Epithelial Cells Few HPF (Negative); Mucus Negative (Negative); RBC Negative HPF (0-2); WBC 0-2 HPF (0-5)
--- NOTE | 2021-09-17 09:30 | DI.CT_ITS ---
Exam(s) CT ABDOMEN PELVIS W EXAM: CT ABDOMEN PELVIS W INDICATION: R flank pain. COMPARISON: CT ABD PELVIS WO CONTRAST from 09/30/2015 CR,XR XR CHEST 1V IN DI DEPT from 05/02/[address] BRAIN NECK CTA from 05/02/2020 TECHNIQUE: FINDINGS: CT examination of the abdomen and pelvis was performed with a bolus infusion of 100 cc of Omnipaque 3 50. Images obtained through the lung show areas nonspecific pulmonary opacity with some ground-glass comp onent but predominantly reticulo nodular, these are of uncertain chronicity but were not present on p rior CT of September 2015. Possibility of infectious process including COVID pneumonia not excluded. Plea se correlate clinically.. Gallbladder has been surgically removed. There is gas in the biliary tract, the patient has reported history prior bile duct instrumentation period no biliary dilatation to suggest obstruction. Normal a ppearance of pancreatic duct and common bile duct. No focal hepatic lesion.. Pancreas appears normal. Spleen is unremarkable in appearance. Adrenals appear normal. The kidneys are unremarkable with no evidence of hydronephrosis, nephrolithiasis, or renal mass.. Ur inary bladder unremarkable but distended.. Abdominal aorta is of normal diameter and no major vascular abnormality is seen. No abdominal wall hernia. No abdominal or pelvic adenopathy. 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 Appendix is normal. No evidence of diverticulitis or bowel obstruction. IMPRESSION: No evidence of acute process. Please correlate clinically the bibasilar intrapulmonary infiltrates de scribed above, acute versus chronic... RADIATION DOSE DELIVERED: 637.66mGy.cm Total DLP 637.66mGy.cm Total DLP !Error CTDIvol RADIATION OPTIMIZATION: All CT scans at this facility use at least one of these dose optimization te chniques: automated exposure control; mA and/or kV adjustment per patient size (includes targeted exa ms where dose is matched to clinical indication); or iterative reconstruction.
[2021-09-17 09:32] LABS: ALT 21 U/L (14-59); AST 20 U/L (15-37); Albumin 3.6 g/dL (3.4-5.0); Alkaline Phosphatase 123 U/L (46-116); Anion Gap 9.3 mmol/L (3-11); BUN 17 mg/dL (7-18); Bilirubin, Total 0.7 mg/dL (0.2-1.0); CO2 26.7 mmol/L (21.0-32.0); Calcium 9.1 mg/dL (8.5-10.1); Chloride 107 mmol/L (98-107); Estimated GFR 53.35 (mL/min/1.73m2); Glucose 100 mg/dL (74-106); Lipase 101 U/L (73-393); Potassium 4.4 mmol/L (3.5-5.1); Sodium 143 mmol/L (136-145); Total Protein 7.7 g/dL (6.4-8.2)
[2021-09-17] MEDS: Lidocaine 5% Patch 1 PATCH TP (09:49)
[2021-09-17] MEDS: Esomeprazole 20 MG CAPCR PO (09:55)
[2021-09-17] MEDS: Omnipaque 350 MG/ML 100 ML BTL IJ (09:56)
[2021-09-17 11:43] VITALS: BP 169/73; PULSE 73; RESP 14; O2SAT 98
[2021-09-18 15:45] LABS: COVID-19 RT-PCR UVMMC Result Negative (Negative)
== END 2021-09-17 11:52 | disposition home or self-care (01) ==
PROVIDERS: Emergency Provider Physician Assistant; PCP Nurse Practitioner Family
DX: R10.9 Unspecified abdominal pain (principal); R91.8 Other nonspecific abnormal finding of lung field; Z20.822 Contact with and (suspected) exposure to COVID-19
CPT/HCPCS: 36415; 80053; 83690; 99284; 99285; U0003; U0005; 74177; 81003; 81015; 85025; 87086; J3490

== ENCOUNTER → 2022-04-22 00:20 | Outpatient (CLI) | payer MEDICARE, BC, SELFPAY ==
--- NOTE | 2022-04-22 11:14 | DI.MAMMO_ITS ---
Exam(s) MG MAMMO SCREENING 60 MIN DUR EXAM: MG MAMMO SCREENING 60 MIN DUR CLINICAL HISTORY: SCREENING, Z12.39; PERSONAL H/O BREAST CA, Z85.3. TECHNIQUE: Bilateral full field digital CC and MLO mammographic images were obtained with 3D tomosyn thesis and utilizing computer aided detection (CAD). COMPARISON: Prior mammograms were reviewed, the most recent being April 2021. FINDINGS: There has been no significant change in the appearance and distribution of the fibroglandular tissue which is again noted be moderately dense. Benign micro and macro calcifications are again noted bilaterally. There are no new spiculated masses nor malignant appearing microcalcification groups. There is no significant architectural distortion nor skin thickening-retraction. IMPRESSION: No radiographic evidence of malignancy. BI-RADS Category 1 - Negative Breast Density - Category C - Heterogeneously dense Breast density Category C or D implies that the patient has dense breast tissue. Dense breast tissue can make it harder to find cancer on a mammogram. Dense breast tissue is also associated with an incr eased risk of breast cancer. This information about the result of the mammogram report was provided to the patient to raise their awareness. Use this report when you speak with the patient about their risks for breast cancer, which includes their family history. At that time, you may recommend additional screening tests (Ultrasoun d or MRI) as these tests may add significant information. A negative radiographic report should not delay biopsy if a dominant or clinically suspicious mass is present. Up to ten percent of cancers are not identified on mammography. A negative report may reinforce clinical impression. Adenosis and dense breasts may obscure an underlying neoplasm. False positive reports average 6 to 10%. Patient will receive a letter notifying them of these results.
== END ==
PROVIDERS: PCP Nurse Practitioner Family; Visit Provider Nurse Practitioner Family
DX: Z12.31 Encounter for screening mammogram for malignant neoplasm of breast (principal); R92.8 Other abnormal and inconclusive findings on diagnostic imaging of breast
CPT/HCPCS: 77063; 77067

== ENCOUNTER 2022-12-13 18:43 | Outpatient (CLI) | payer MEDICARE, BC, SELFPAY ==
[2022-12-13 09:27] LABS: Abs Immature Grans 0.04 10^3/uL (0.0-0.06); Absolute Eosinophil Count 0.16 10^3/uL (0.0-0.7); Absolute Lymphocyte Count 1.64 10^3/uL (1.2-3.4); Absolute Monocyte Count 0.57 10^3/uL (0.1-0.8); Absolute Neutrophil Count 4.21 10^3/uL (1.2-6.7); Basophils % 1.5; Eosinophils % 2.4; HCT 40.9 % (36.0-46.0); HGB 12.6 g/dL (11.2-15.7); Immature Grans % 0.6; Lymphocytes % 24.4; MCH 30.1 pg (27.0-33.0); MCHC 30.8 % (32.0-36.0); MCV 98 fL (80-95); Monocytes % 8.5; Neutrophils % 62.6; RBC 4.19 10^6/uL (3.93-5.22); RDW 12.9 % (11.7-14.6); RDW-SD 45.8 fL; WBC 6.72 10^3/uL (4.4-10.8)
[2022-12-13 09:45] LABS: Diff Comment PLT Morph Reviewed; Hypochromasia 1+
[2022-12-13 10:01] LABS: ALT 25 U/L (14-59); AST 20 U/L (15-37); Albumin 3.4 g/dL (3.4-5.0); Alkaline Phosphatase 125 U/L (46-116); Anion Gap 8.6 mmol/L (3-11); BUN 12 mg/dL (7-18); Bilirubin, Total 0.5 mg/dL (0.2-1.0); CO2 26.4 mmol/L (21.0-32.0); Calculated LDL 139 mg/dL (<100); Chloride 109 mmol/L (98-107); Cholesterol 227 mg/dL (<200); Glucose 96 mg/dL (74-106); HDL Cholesterol 54 mg/dL (40-60); Magnesium 1.7 mg/dL (1.8-2.4); Sodium 144 mmol/L (136-145); Total Protein 7.2 g/dL (6.4-8.2); Triglyceride 171 mg/dL (<150)
== END 2022-12-13 18:44 | disposition home or self-care (01) ==
LOC: LBO 18:44
PROVIDERS: PCP Nurse Practitioner Family; Visit Provider Nurse Practitioner Family
DX: I10 Essential (primary) hypertension (principal); G47.62 Sleep related leg cramps; E78.5 Hyperlipidemia, unspecified
CPT/HCPCS: 36415; 80053; 80061; 83735; 85025

== ENCOUNTER → 2023-04-28 00:38 | Outpatient (CLI) | payer MEDICARE, BC, SELFPAY ==
--- NOTE | 2023-04-28 | DI.MAMMO_ITS ---
Exam(s) MG MAMMO SCREENING 60 MIN DUR EXAM: MG MAMMO SCREENING 60 MIN DUR CLINICAL HISTORY: SCREENING, Z12.39, PERSONAL H/O BREAST CA, Z85.3 TECHNIQUE: Mammograms were interpreted according to the usual protocol including computer analysis w [employer] CAD system, tomosynthesis and C-view imaging. COMPARISON: 2013 through 2021 FINDINGS: The breasts are composed of heterogeneously dense fibroglandular densities, Breast Density category C . No suspicious masses or suspicious microcalcifications are seen. Benign calcifications again noted b ilaterally. No skin thickening or abnormal axillary lymph nodes are seen. There has been no significant change from prior exams. IMPRESSION: BI-RADS Category 1, Negative mammogram. Breast Density Category C, heterogeneously Dense. The mammogram demonstrates the patient's breast tissue is dense. Dense breast tissue is very common a nd is not abnormal but dense breast tissue can make it harder to find cancer on a mammogram. Also, de nse breast tissue may increase breast cancer risk. This information about the result of the mammogram report was provided to the patient to raise their awareness. Use this report when you speak with the patient about their risks for breast cancer, which includes their family history. At that time, you may recommend additional screening tests (Ultrasound or MRI) as they might be useful based on their r isk. A negative radiographic report should not delay biopsy if a dominant or clinically suspicious mass is present. Up to ten percent of cancers are not identified on mammography. A negative report may reinforce clinical impression. Adenosis and dense breasts may obscure an underlying neoplasm. False positive reports average 6 to 10%.
== END ==
PROVIDERS: PCP Nurse Practitioner Family; Visit Provider Nurse Practitioner Family
DX: Z12.31 Encounter for screening mammogram for malignant neoplasm of breast (principal); Z85.3 Personal history of malignant neoplasm of breast; R92.333 Mammographic heterogeneous density, bilateral breasts
CPT/HCPCS: 77063; 77067

== ENCOUNTER 2023-12-25 03:04 | Outpatient (CLI) | payer MEDICARE, BC, SELFPAY ==
[2023-12-25 09:20] LABS: HCT 38.9 % (36.0-46.0); HGB 12.1 g/dL (11.2-15.7); MCH 30.1 pg (27.0-33.0); MCHC 31.1 % (32.0-36.0); MCV 97 fL (80-95); MPV 11.4 fL (8.0-11.0); Platelet Count 178 10^3/uL (130-400); RBC 4.02 10^6/uL (3.93-5.22); RDW 12.3 % (11.7-14.6); RDW-SD 43.9 fL; WBC 6.96 10^3/uL (4.4-10.8)
[2023-12-25 09:24] LABS: ALT 18 U/L (14-59); AST 22 U/L (15-37); Albumin 3.5 g/dL (3.4-5.0); Alkaline Phosphatase 126 U/L (46-116); Anion Gap 9.7 mmol/L (3-11); BUN 16 mg/dL (7-18); Bilirubin, Total 0.54 mg/dL (0.2-1.0); CO2 26.3 mmol/L (21.0-32.0); Calculated LDL 142 mg/dL (<100); Chloride 110 mmol/L (98-107); Cholesterol 225 mg/dL (<200); Glucose 102 mg/dL (74-106); HDL Cholesterol 50 mg/dL (40-60); Magnesium 1.7 mg/dL (1.8-2.4); Sodium 146 mmol/L (136-145); Total Protein 7.7 g/dL (6.4-8.2); Triglyceride 165 mg/dL (<150)
[2023-12-25 09:47] LABS: Absolute Eosinophil Count 0.07 10^3/uL (0.0-0.7); Absolute Lymphocyte Count 2.44 10^3/uL (1.2-3.4); Absolute Monocyte Count 0.97 10^3/uL (0.1-0.8); Absolute Neutrophil Count 3.48 10^3/uL (1.2-6.7); Atypical Lymphocytes % 4 %; Diff Comment Manual Differential; RBC Morphology Normal
== END 2023-12-25 03:05 | disposition home or self-care (01) ==
LOC: LBO 03:04
PROVIDERS: Visit Provider Nurse Practitioner Family
DX: I10 Essential (primary) hypertension (principal); G47.62 Sleep related leg cramps
CPT/HCPCS: 36415; 80053; 80061; 83735; 85025

== ENCOUNTER 2024-04-18 12:06 | Outpatient (REF) | payer MEDICARE, BC, SELFPAY ==
[2024-04-18 17:21] LABS: Calculated LDL 129 mg/dL (<100); Cholesterol 228 mg/dL (<200); HDL Cholesterol 52 mg/dL (40-60); Triglyceride 239 mg/dL (<150)
== END 2024-04-18 12:07 | disposition home or self-care (01) ==
LOC: NCHCN 12:06
PROVIDERS: Visit Provider Nurse Practitioner Family
DX: E78.5 Hyperlipidemia, unspecified (principal)
CPT/HCPCS: 80061

== ENCOUNTER 2024-05-13 01:11 | Outpatient (CLI) | payer MEDICARE, BC, SELFPAY ==
--- NOTE | 2024-05-13 13:45 | DI.MAMMO_ITS ---
Exam(s) MG MAMMO SCREENING 60 MIN DUR EXAM: MG MAMMO SCREENING 60 MIN DUR CLINICAL HISTORY: Screening, Z12.31; personal h/o breast CA TECHNIQUE: Mammograms were interpreted according to the usual protocol including computer analysis w [employer] CAD system, tomosynthesis and C-view imaging. COMPARISON: 2015 through 2022 FINDINGS: The breasts are composed of heterogeneously dense fibroglandular densities, Breast Density category C . No suspicious masses or suspicious microcalcifications are seen. Benign calcifications are again not ed. Biopsy marker clip is present in the posterior right breast. No skin thickening or abnormal axillary lymph nodes are seen. There has been no significant change from prior exams. IMPRESSION: BI-RADS Category 2 - Benign Findings Yearly screening mammography is recommended. Breast Density Category C, heterogeneously Dense. The mammogram demonstrates the patient's breast tissue is dense. Dense breast tissue is very common a nd is not abnormal but dense breast tissue can make it harder to find cancer on a mammogram. Also, de nse breast tissue may increase breast cancer risk. This information about the result of the mammogram report was provided to the patient to raise their awareness. Use this report when you speak with the patient about their risks for breast cancer, which includes their family history. At that time, you may recommend additional screening tests (Ultrasound or MRI) as they might be useful based on their r isk. A negative radiographic report should not delay biopsy if a dominant or clinically suspicious mass is present. Up to ten percent of cancers are not identified on mammography. A negative report may reinforce clinical impression. Adenosis and dense breasts may obscure an underlying neoplasm. False positive reports average 6 to 10%.
== END 2024-05-13 01:31 ==
LOC: DI 01:12
PROVIDERS: Visit Provider Nurse Practitioner Family
DX: Z12.31 Encounter for screening mammogram for malignant neoplasm of breast (principal); R92.323 Mammographic fibroglandular density, bilateral breasts; R92.333 Mammographic heterogeneous density, bilateral breasts; D24.1 Benign neoplasm of right breast
CPT/HCPCS: 77063; 77067

== ENCOUNTER 2024-07-19 12:35 | Outpatient (REF) | payer MEDICARE, BC, SELFPAY ==
[2024-07-19 15:41] LABS: Calculated LDL 158 mg/dL (<100); Cholesterol 250 mg/dL (<200); HDL Cholesterol 57 mg/dL (40-60); Triglyceride 175 mg/dL (<150)
== END 2024-07-19 12:36 | disposition home or self-care (01) ==
LOC: NCHCN 12:35
PROVIDERS: Visit Provider Nurse Practitioner Family
DX: E78.5 Hyperlipidemia, unspecified (principal)
CPT/HCPCS: 80061; 83735

== ENCOUNTER 2024-08-12 01:28 | Outpatient (CLI) | payer MEDICARE, BC, SELFPAY ==
--- NOTE | 2024-08-12 14:30 | DI.US_ITS ---
APPROVED REPORT EXAM: Comprehensive 2D, Doppler, and color-flow Echocardiogram Patient Location: [facility] Supervisor: Edward Junior RDCS (AE) Indications: Vasovagal syncope Conclusion Normal left ventricular wall thickness and chamber size. Ejection fraction is 60%. Wall motion is n ormal Normal right ventricular size and function Mildly dilated right atrium. Normal left atrial size Aortic valve is sclerotic and trileaflet without stenosis or regurgitation Mitral annular calcification. Trace mitral regurgitation Mild to moderate tricuspid regurgitation. Estimated right ventricular systolic pressure is 37 mmHg Wall motion Left Ventricle The left ventricle is normal size. The left ventricular systolic function is normal. The left ventric ular ejection fraction is within the normal range. There is normal left ventricular wall thickness. T here is normal LV segmental wall motion. There is no ventricular septal defect visualized. LVEF is 60 %. Right Ventricle The right ventricle is normal size. The right ventricular systolic function is normal. Atria The left atrium size is normal. Right atrium is mildly dilated. The interatrial septum is intact with no evidence for an atrial septal defect. Aortic Valve The Aortic valve is sclerotic. Aortic valve is trileaflet. There is no aortic valvular stenosis. No a ortic regurgitation is present. Mitral Valve Mild mitral annular calcification. No evidence of mitral valve stenosis. Trace mitral regurgitation. Tricuspid Valve The tricuspid valve is normal in structure. There is no tricuspid valve stenosis. Mild to moderate tr icuspid regurgitation. The RVSP is 37.4 mmHg. Pulmonic Valve The pulmonary valve is normal in structure. There is no pulmonic valvular stenosis. Mild pulmonic reg urgitation. Great Vessels The aortic root is normal in size. The ascending aorta is normal in size. Aortic arch is not well vis ualized. IVC is normal in size and collapses >50% with inspiration. Pericardium There is no pericardial effusion. 2D Dimensions IVSD d PLAX 0.66 cm F: 0.6-1.0 Ao Root d 2.65 cm F: 2.7 - 3.3 LVPW d PLAX 0.69 cm F: 0.6 - 1.0 LVID d PLAX 3.95 cm F: 3.8 - 5.2 LVDs 2.67 cm F: 2.2 - 3.5 LV EF Teichholz 61.4 % FS 32.47 % LV EDV (Teich) 67.9 mL LV ESV (Teich) 26.2 mL Stroke Vol Index (Teich) 29.35 M-Mode TAPSE 2.14 cm (M/F) >1.7 LV Volumes - Method of Disks (Alva's) Single Plane 2D LV Volumes Biplane 2D LV Volumes LV EDV A4C 72.6 mL LV EDV BP 71.10 mL F: 46 - 106 LV ESV A4C 29.6 mL LV ESV BP 29.4 mL LVEF(%) A4C 59.1 % LVEF(%) BP 58.70 % F: 54 - 74 LV EDV A2C 67.0 mL LV EDV BP Index 49.72 mL/m2 F: 29 - 61 LV ESV A2C 28.9 mL SV BP LVEF(%) A2C 56.8 % SV Index LA Volume LA Length A4C 3.7 cm LA Length A2C LA Area A4C s 10.36 cm2 LA Area A2C s LA Vol A4C A-L 24.76 mL LA Vol A2C A-L LA Vol Biplane A-L LA Vol A4C MOD 22.5 mL LA Vol A2C MOD LA Vol BP MOD RA Volume RA Area A4C 10.9 cm2 RA ESV A4C (A-L) 26.0mL RA Vol/BSA A4C A-L RA Length A4C 3.8 cm RA ESV A4C (MOD) 24.8mL LV Diastology MV E' medial 0.035 (>0.07 m/s) MV E Vmax 0.62 (0.4-1.3 m/s) MV E/E' MED 17.94 (<14) MV A Vmax 0.95 (0.4-1.3 m/s) MV E' lateral 0.042 (>0.1 m/s) E/A Ratio 0.7 MV E/E' LAT 14.90 (<14) MV E' Average 0.038 m/s MV E/E'(average) 16.28 Aortic Valve AoV Vmax 1.00 m/s LVOT Vmax 0.58 m/s AoV Peak Grad 4.0 mmHg LVOT Peak Grad 1.4 mmHg AoV Area (Vmax) 1.19 cm2 LVOT VTI 0.148 m AoV VTI 0.264 m LVOT Mean Grad 0.8 mmHg AoV Mean Guru. 0.74 m/s LVOT SV 30.51 mL AoV Mean Grad 2.4 mmHg LVOT Diam s 1.60 cm AoV Area (VTI) 1.15 cm2 AV Regurg Peak Gr. 4.04 mmHg Velocity Ratio 0.58 Mitral Valve MV DT 155 (160-240 msec) Pulmonary Valve PV Vmax 0.74 (0.5-1.5 m/s) PV Peak Grad 2.2 mmHg PV Mean Guru 0.52 m/s PV Mean Grad 1.2 mmHg Tricuspid Valve RA Pressure 3.00 mmHg TR Vmax 2.93 m/s TR Peak Grad 34.4 mmHg RVSP (TR) 37.4 mmHg
== END 2024-08-12 01:48 ==
LOC: DI 01:28
PROVIDERS: Visit Provider Internal Medicine Cardiovascular Disease
DX: I36.1 Nonrheumatic tricuspid (valve) insufficiency (principal); I35.8 Other nonrheumatic aortic valve disorders
CPT/HCPCS: 93306

== ENCOUNTER 2024-08-28 10:03 | Emergency (ER) | payer MEDICARE, BC, SELFPAY ==
[2024-08-28 10:14] VITALS: BP 113/68; PULSE 107; RESP 18; TEMP 37.1; O2SAT 92
--- NOTE | 2024-08-28 11:03 | DI.RAD_ITS ---
Exam(s) XR CHEST 2V PA LATERAL EXAM: XR CHEST 2V PA LATERAL CLINICAL HISTORY: Cough, congestion, eval PNA TECHNIQUE: 2D digital imaging was performed. Two views. COMPARISON: CR,XR XR CHEST 1V IN DI DEPT from 05/02/2020 FINDINGS: HEART: Normal size. Aorta: Tortuous PULMONARY VASCULATURE: Normal. MEDIASTINUM: Unremarkable. LUNGS: Clear. PLEURAL SPACE: No pleural effusion or pneumothorax. BONE:Unremarkable for age. SOFT TISSUES: Unremarkable. IMPRESSION: No acute abnormality. DATA REPOSITORY: RADIATION DOSE DELIVERED:
--- NOTE | 2024-08-28 11:14 | W.ED.GENAD ---
Discharge Plan Disposition Patient Disposition: Home Condition: Stable Discharge Details Clinical Impression: URI (upper respiratory infection), Hyperlipidemia, Hx of gastroesophageal reflux (GERD), History of hypertension Primary Care Provider: Unknown,Unknown ED Provider: Edelmira Mcfarland Home Meds and New Rx's Prescriptions: No Action valacyclovir 1 gram tablet 1,000 mg PO TID Qty: 21 0RF lisinopril 5 mg tablet 5 mg PO DAILY ezetimibe [Zetia] 10 mg tablet 10 mg PO DAILY esomeprazole magnesium [Nexium] 40 MG capsule,delayed release(DR/EC) 40 mg PO DAILY Eye Vitamin and Minerals 1 EACH tablet 1 ea PO DAILY Patient Comments: ARED2 (Prezavision) for macular degeneration aspirin [Aspir-81] 81 MG tablet,delayed release (DR/EC) 81 mg PO DAILY metoprolol tartrate 25 MG tablet 50 mg PO BID nitroglycerin [Nitrostat] 0.4 MG tablet, sublingual 0.4 mg Sublingual Q5 MIN PRN X3 PRNQty: 0 0RF lidocaine [Lidoderm] 5 % adhesive patch,medicated 1 patch topical DAILY Qty: 1 0RF Rx Instructions: leave on most painful area for up to 12 hrs Discharge Instructions Instructions: Viral Upper Respiratory Infection, Adult (DC) Additional Instructions: You were seen in the emergency department today for evaluation of runny nose and cough for the last week. In our department you had a full physical examination performed, and had COVID and influenza swab that was negative. You had a chest x-ray that does not show any sign of pneumonia, though your symptoms are most concerning for a viral infection, and you should continue to use Tylenol and [id number] medications for management of symptoms. I do recommend that you see your primary care provider in the next few days for reevaluation, or return to the emergency department if you develop any worsening shortness of breath, chest pain, dizziness or any other symptoms that cause you concern. Thank you for allowing us to be part of your care. HPI General Mode of arrival: ambulatory. Date/Time Provider Initiated Documentation: 08/28/24 10:22. Limitations to Documentation: no limitations. Information obtained by: patient, family and old records reviewed. HPI Narrative: HPI: This is an 83-year-old female patient with a past medical history significant for hypertension, IBS, hyperlipidemia and GERD, as well as a history of LA who is presenting for evaluation of 1 week of cough and runny nose. The patient is accompanied by her family member. She states that she has felt sick all week, did take a COVID test a few days ago that was negative. She states that she has felt more shortness of breath on exertion and has to pause and catch her breath after coughing. She has been using Tylenol as needed and feels like she is maintaining her hydration and nutrition. Exam: Gen: Awake and alert, in no apparent distress HEENT: Non-icteric sclera Neck: Supple Lungs: No apparent respiratory distress, normal respiratory effort. Lung sounds clear and equal bilaterally, occasional crackles appreciated over the left base CV: Appears well perfused, heart with regular rate and rhythm during this provider's examination, no murmurs, strong distal pulses Abdomen: Non-distended, soft, nontender MSK: Moves 4 extremities without apparent limitation in ROM. No peripheral edema, no unilateral calf swelling Skin: Visualized skin without rashes, cyanosis. Neuro: Normal Gait, no obvious focal deficits or facial asymmetry. Speaks in full, clear sentences. Psych: Appropriate for situation. MDM: This is a 89-year-old female patient presenting for evaluation of runny nose and cough. Differential includes but is not limited to viral URI, certainly considered bronchitis and pneumonia, patient is reassuringly without evidence of fluid overload on examination to suggest pulmonary edema or pleural effusion, has no wheezing to suggest reactive airway disease exacerbation. No chest pain to suggest ACS, tolerating oral intake and I have a lower concern for metabolic and electrolyte derangements. I will obtain a viral swab as well as a chest x-ray, and provide the patient with a dose of Tylenol. At this time I do not see an indication based on my history and physical to proceed with advanced imaging other than x-ray or laboratory studies. ED Course: Viral swab negative, and the chest x-ray shows no signs of lobar pneumonia to suggest need for antibiotics. I do feel that the patient's runny nose and cough are still most concerning for a viral URI, and recommended conservative management and outpatient follow-up with her primary care provider for reevaluation in the next few days. At this time, the patient has had a full medical evaluation and is safe for discharge to home. They are hemodynamically stable, ambulatory, and tolerating PO. They are understanding of the follow-up plan and return precautions. They left our facility without incident. Edelmira Mcfarland MD Related Data Home Medications ?Medication ?Instructions ?Recorded ?Confirmed esomeprazole magnesium 40 mg 40 mg PO DAILY 12/13/13 08/28/24 capsule,delayed release (Nexium) vit A 7,160 unit-vit C 113 mg-vit 1 ea PO DAILY 08/24/15 08/28/24 E 100 [id number] tablet (Eye Vitamin and Minerals) aspirin 81 mg tablet,delayed 81 mg PO DAILY 11/25/17 08/28/24 release (Aspir-) metoprolol tartrate 25 mg tablet 50 mg PO BID 11/25/17 08/28/24 nitroglycerin 0.4 mg sublingual 0.4 mg sublingual Q5 MIN PRN X3 11/26/17 08/28/24 tablet (Nitrostat) PRN ##0 lisinopril 5 mg tablet 5 mg PO DAILY 08/10/18 08/28/24 ezetimibe 10 mg tablet (Zetia) 10 mg PO DAILY 05/05/20 08/28/24 lidocaine 5 % topical patch 1 patch topical DAILY #1 ea 09/17/21 08/28/24 (Lidoderm) valacyclovir 1 gram tablet 1,000 mg PO TID #21 tabs 03/30/24 08/28/24 Previous Rx's ?Medication ?Instructions ?Recorded nitroglycerin 0.4 mg sublingual 0.4 mg sublingual Q5 MIN PRN X3 11/26/17 tablet (Nitrostat) PRN ##0 lidocaine 5 % topical patch 1 patch topical DAILY #1 ea 09/17/21 (Lidoderm) valacyclovir 1 gram tablet 1,000 mg PO TID #21 tabs 03/30/24 Allergies Allergy/AdvReac Type Severity Reaction Status Date / Time sulfamethoxazole (From Allergy Mild unknown Verified 08/28/24 10:17 Bactrim) trimethoprim (From Bactrim) Allergy Mild unknown Verified 08/28/24 10:17 cyclobenzaprine Allergy Unknown Verified 08/28/24 10:17 Iodinated Contrast Media Allergy Unknown Verified 08/28/24 10:17 (Iodinated Contrast- Oral and IV Dye) NSAIDS (Non-Steroidal Allergy Unknown Verified 08/28/24 10:17 Anti-Inflamma atorvastatin (From Lipitor) AdvReac Severe unknown Verified 08/28/24 10:17 General Stated Complaint: RespSymp ALMA: 3 Course Vital Signs Vital signs: Vital Signs Temperature 37.1 C 08/28/24 10:14 Pulse 107 H 08/28/24 10:14 Respiratory Rate 18 08/28/24 10:14 Blood Pressure 113/68 08/28/24 10:14 Pulse Oximetry 92 08/28/24 10:14 Temperature 37.1 C 08/28/24 10:14 Temperature Source Oral 08/28/24 10:14 Pulse 107 H 08/28/24 10:14 Respiratory Rate 18 08/28/24 10:14 Blood Pressure 113/68 08/28/24 10:14 Blood Pressure Position Sitting 08/28/24 10:14 Pulse Oximetry 92 08/28/24 10:14 Oxygen Delivery Method Room Air 08/28/24 10:14 Oxygen Flow Rate 0 08/28/24 10:14 Pain Level 7 08/28/24 10:14 Medical Decision Making Quality:SDOH Health Related Social Needs: No Data to Display PFSH All Active Problems (Updated 08/28/24 @ 11:51 by Edelmira Mcfarland MD) URI (upper respiratory infection) (Acute) Gall stone pancreatitis (Acute) S/P laparoscopic cholecystectomy (Acute) Hx of gastroesophageal reflux (GERD) (Acute) History of hypertension (Acute) Traumatic closed displaced fracture of proximal end of right humerus with routine healing (Acute 11/16/15) Fracture of humeral head (Acute) IBS (irritable bowel syndrome) (Chronic) Diverticulosis (Chronic) GERD (gastroesophageal reflux disease) (Chronic) Cerebral aneurysm (Acute) 10/16/00 Pt has not had any current issues r/t to this dx Hyperlipidemia (Chronic) Hypertension (Chronic) 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 states it was not a mastectomy but a lumpectomy Endopyelotomy Retrograde herniated disc repair L5-S1 in 1973 for L leg radiculopathy , Ectopic x2 Repair of inguinal hernia left S/P dilatation of esophageal stricture numerous! Sigmoidoscopy x2 Family History Father Heart disease Social History Smoking/Tobacco Use Status: Former Tobacco Use Quit Date: 07/03/79 Smoking risk assessment performed?: Yes Alcohol Intake: never Drug use: Never Substance use type: does not use Household members: none Number of Children: 1 current occupation: Retired [employer] Current gender identity: female What is your relationship status?: Panel score (0-1 are the most socially isolated patients): 0 Do you feel safe at home: Yes Do you feel safe in your relationship?: Yes Additional Social history: lives alone
[2024-08-28 11:27] LABS: COVID-19 PCR Negative (Negative); Influenza A PCR Negative (Negative); Influenza B PCR Negative (Negative); RSV PCR Negative (Negative)
[2024-08-28 11:40] LABS: Source Nasopharynx
[2024-08-28] MEDS: Acetaminophen 500 MG TAB 1000 MG PO (11:59)
== END 2024-08-28 12:03 | disposition home or self-care (01) ==
PROVIDERS: Emergency Provider Emergency Medicine
DX: J06.9 Acute upper respiratory infection, unspecified (principal); E78.5 Hyperlipidemia, unspecified; I10 Essential (primary) hypertension; K21.9 Gastro-esophageal reflux disease without esophagitis; Z79.82 Long term (current) use of aspirin; Z87.891 Personal history of nicotine dependence
CPT/HCPCS: 87637; 99284; 71046

== ENCOUNTER 2024-08-30 06:56 | Outpatient (CLI) | payer MEDICARE, BC, SELFPAY ==
--- NOTE | 2024-08-30 08:49 | W.CARDEVENT ---
Date of service: 08/30/24 Time of Service: 08:50 Cardiac Event Recorder Referring Provider:: Elizabeth Fountain Indications:: Syncope Cardiac Event Note: This is a cardiac event monitor. Patient was monitored for 12 days and 6 hours. Rhythm throughout was sinus with an average heart rate of 81. Minimum was 58, maximum 121. There were occasional ventricular ectopic beats. Brief nonsustained ventricular tachycardia was seen, total of 4 episodes. Longest episode was 4 beats. There were rare atrial premature beats. There was several self-limited atrial runs, longest was 10 beats in duration. There was no atrial fibrillation, no high-grade AV block, no pauses greater than 3 seconds. No symptoms were reported
== END 2024-08-30 06:57 | disposition home or self-care (01) ==
LOC: CARDOPNVT 06:56
PROVIDERS: Visit Provider Internal Medicine Cardiovascular Disease
DX: R55 Syncope and collapse (principal); I47.20 Ventricular tachycardia, unspecified; I49.3 Ventricular premature depolarization; I49.1 Atrial premature depolarization
CPT/HCPCS: 93248

== ENCOUNTER 2024-12-16 15:53 | Observation (INO) | payer MEDICARE, BC, SELFPAY ==
[2024-12-16] VITALS (39 sets, daily range): BP systolic 105–181; BP diastolic 43–110; PULSE 77–99; RESP 18–20; TEMP 36.6–37.1; O2SAT 87–99
[2024-12-16 17:13] LABS: Abs Immature Grans 0.08 10^3/uL (0.0-0.06); Absolute Basophil Count 0.08 10^3/uL (0.0-0.2); Absolute Eosinophil Count 0.01 10^3/uL (0.0-0.7); Absolute Monocyte Count 0.58 10^3/uL (0.1-0.8); Absolute Neutrophil Count 11.48 10^3/uL (1.2-6.7); Basophils % 0.6 %; Eosinophils % 0.1 %; HCT 37.6 % (36.0-46.0); HGB 11.5 g/dL (11.2-15.7); Immature Grans % 0.6 %; Lymphocytes % 6.9 %; MCH 29.9 pg (27.0-33.0); MCHC 30.6 % (32.0-36.0); MCV 98 fL (80-95); MPV 10.1 fL (8.0-11.0); Monocytes % 4.4 %; Neutrophils % 87.4 %; Platelet Count 191 10^3/uL (130-400); RBC 3.84 10^6/uL (3.93-5.22); RDW 12.2 % (11.7-14.6); RDW-SD 43.8 fL; WBC 13.13 10^3/uL (4.4-10.8)
[2024-12-16 17:19] LABS: Absolute Lymphocyte Count 0.91 10^3/uL (1.2-3.4)
[2024-12-16 17:25] LABS: ALT 26 U/L (14-59); AST 26 U/L (15-37); Albumin 3.5 g/dL (3.4-5.0); Alkaline Phosphatase 139 U/L (46-116); Anion Gap 11.1 mmol/L (3-11); BUN 23 mg/dL (7-18); Bilirubin, Total 0.7 mg/dL (0.2-1.0); CO2 24.9 mmol/L (21.0-32.0); Calcium 8.9 mg/dL (8.5-10.1); Chloride 107 mmol/L (98-107); Glucose 114 mg/dL (74-106); Lipase 37 U/L (<78); Potassium 4.1 mmol/L (3.5-5.1); Sodium 143 mmol/L (136-145); Total Protein 7.7 g/dL (6.4-8.2)
--- NOTE | 2024-12-16 17:36 | DI.RAD_ITS ---
Exam(s) XR ANKLE RT COMPLETE EXAM: XR ANKLE RT COMPLETE CLINICAL HISTORY: ankle pain post fall. TECHNIQUE: 2D digital imaging was performed. Three views. COMPARISON: No exams were available for comparison FINDINGS: BONES: no acute fracture is present. No bony destructive lesion is seen. Bones appear osteoporotic. JOINTS: The ankle mortise is normally aligned. SOFT TISSUE: Mild edema. IMPRESSION: Unremarkable radiographs of the right ankle. DATA REPOSITORY: RADIATION DOSE DELIVERED:
--- NOTE | 2024-12-16 17:50 | DI.CT_ITS ---
Exam(s) CT CHEST/ABD/PEL W EXAM: CT CHEST/ABD/PEL W CLINICAL HISTORY: fall 5 ft , landed chest, r shoulder/chest ecchymo. TECHNIQUE: Imaging Protocol: Axial computed tomography images with coronal and sagittal reformatted images were created and reviewed. Computer aided detection (CAD) was utilized. CONTRAST MATERIAL: Intravenous: Omnipaque 350 Contrast volume:75 ml Oral: no COMPARISON: CR RIGHT SHOULDER COMPLETE from 11/16/[address] BRAIN NECK CTA from 05/02/[address] HEAD - STROKE PROTOCOL from 05/02/[address] ABDOMEN PELVIS W from 09/17/2021 FINDINGS: CHEST: Pulmonary parenchyma: No consolidation. No dominant measurable mass. Tracheobronchial tree: No bronchiectasis. No mucous plugging.No bronchial wall thickening. Pleura: No effusion or pneumothorax. Mediastinum: Within normal limits. Pulmonary arteries: No visible emboli. Cardiovascular: The heart is qvan-[id number] enlarged. Coronary artery calcifications are seen. No pericardial effusion. Thoracic aorta non-dilated. Atherosclerotic changes. Bones: Unremarkable for age. No lytic or blastic lesions.No compression fractures. No visible rib fractures. Soft tissues: Unremarkable. ABDOMEN and PELVIS: Liver: Normal density. No suspicious mass. Gallbladder and biliary tract: No evidence of stones or wall thickening. No biliary dilatation. Pancreas: Normal density, no abnormal calcifications or inflammatory process. Spleen: Normal. Kidneys: Normal size, contour and axis. No radiodense stones. No obstructive uropathy. No suspicious masses seen. Adrenal glands: No masses seen. Aorta: Abdominal portion non-dilated. Atherosclerotic calcification Lymph nodes: Within normal limits. Soft tissues: Unremarkable. Bladder: Unremarkable. Bowel: No obstruction or bowel wall thickening. Severe diverticulosis, greatest in the descending and sigmoid colon. Peritoneal cavity: No ascites. No focal collection. No mesenteric inflammatory response. No free air. Bones: Unremarkable for age. No spine or pelvic fractures. Reproductive organs: Unremarkable for age. IMPRESSION: No acute abnormality in the chest, abdomen or pelvis. RADIATION DOSE DELIVERED: Total DLP DATA REPOSITORY: All CT scans at this facility are submitted to the National Radiology Data Registry (NRDR) Dose Index Registry (DIR) with the [employer] (ACR). RADIATION OPTIMIZATION: All CT scans at this facility use at least one of these dose optimization techniques: automated exposure control; mA and/or kV adjustment per patient size (includes targeted exams where dose is matched to clinical indication); or iterative reconstruction.
--- NOTE | 2024-12-16 17:51 | DI.CT_ITS ---
Exam(s) CT HEAD CERVICAL SPINE WO EXAM: CT HEAD CERVICAL SPINE WO CLINICAL HISTORY: fall, distracting injury. TECHNIQUE: Imaging Protocol: Axial computed tomography images with coronal and sagittal reformatted images were created and reviewed COMPARISON: 02 May 2020 FINDINGS: Head CT Ventricles and Extra axial spaces: Normal in size and morphology for the patient's age. Hemorrhage: None. Cerebral parenchyma: No evidence of mass or acute infarct. Old areas of encephalomalacia are noted in the oral frontal lobes, right temporal lobe and left basal ganglia. Aneurysm clips are again noted which creates significant artifact. Midline shift: None. Brainstem/Cerebellum: Normal. Calvarium: Postsurgical changes are again noted along the right frontal temporal region. Visualized Paranasal sinuses/Mastoids: Clear. Soft tissues: Unremarkable. Cervical Spine CT BONES: Vertebral body heights are maintained. Alignment is normal. There is no evidence of acute fracture. Degenerative disc changes and facet degenerative changes are seen . SOFT TISSUES: No paraspinal hematoma. The airway appears intact. No pneumothorax is seen at the lung apices. IMPRESSION: Head CT: Postsurgical changes. Old areas of encephalomalacia. No acute abnormality. C-spine CT: Degenerative changes, no acute abnormality. RADIATION DOSE DELIVERED: Total DLP DATA REPOSITORY: All CT scans at this facility are submitted to the National Radiology Data Registry (NRDR) Dose Index Registry (DIR) with the [employer] (ACR). RADIATION OPTIMIZATION: All CT scans at this facility use at least one of these dose optimization techniques: automated exposure control; mA and/or kV adjustment per patient size (includes targeted exams where dose is matched to clinical indication); or iterative reconstruction.
[2024-12-16] MEDS: Omnipaque 350 MG/ML 100 ML BTL 75 ML IJ (17:54)
[2024-12-16] MEDS: Normal Saline - Diluent 50 ML VIAL IJ (17:57)
--- NOTE | 2024-12-16 18:09 | DI.RAD_ITS ---
Exam(s) XR KNEE RT 3V AP,LAT,RITA XR TIB/FIB RT EXAM: XR KNEE RT 3V AP,LAT,RITA CLINICAL HISTORY: right knee pain post fall. TECHNIQUE: 2D digital imaging was performed. Three views of the knee. Two views of the tibia and fibula. COMPARISON: CR LEFT KNEE 3 VIEW COMPLETE from 12/11/2012 FINDINGS: Exam is limited by overlying clothing. BONES: There is a depressed fracture of the lateral tibial plateau no additional fractures are identified in the medial tibial plateau, distal femur, patella lower proximal fibula. No bony destructive lesion is seen. JOINTS: The knee is normally aligned. A hemarthrosis is present. Chondrocalcinosis of the menisci. SOFT TISSUE: Vascular calcifications. IMPRESSION: Lateral tibial plateau fracture. No additional fractures are identified elsewhere. DATA REPOSITORY: RADIATION DOSE DELIVERED:
--- NOTE | 2024-12-16 18:09 | DI.RAD_ITS ---
Exam(s) XR SHOULDER RT COMPLETE 2+V EXAM: XR SHOULDER RT COMPLETE 2+V CLINICAL HISTORY: pain post fall. TECHNIQUE: 2D digital imaging was performed. Four views. COMPARISON: CR RIGHT SHOULDER COMPLETE from 11/16/2015 FINDINGS: BONES: No acute fracture is present. There is an old healed proximal humeral fracture. No bony destructive lesion is seen. JOINTS: No dislocation present. SOFT TISSUE: Normal. IMPRESSION: No acute abnormality. DATA REPOSITORY: RADIATION DOSE DELIVERED:
[2024-12-16] MEDS: MORPHine IR 15 MG TAB 7.5 MG PO (20:14)
[2024-12-16] MEDS: Acetaminophen 500 MG TAB PO (20:14)
--- NOTE | 2024-12-16 20:29 | DI.CT_ITS ---
Exam(s) CT LOWER EXTREMITY RT WO EXAM: CT LOWER EXTREMITY RT WO CLINICAL HISTORY: fracture right knee. TECHNIQUE: Imaging Protocol: Axial computed tomography images with coronal and sagittal reformatted images were created and reviewed. COMPARISON: CR XR KNEE RT 3V AP,LAT,RITA from 12/16/2024 FINDINGS: Bones: There is a depressed lateral tibial plateau fracture. The fracture is depressed almost 9 mm, particularly laterally and posteriorly. The bones are osteopenic. No cellulitic or osteomyelitic changes are identified. There is chondrocalcinosis within the femoral tibial joint. There is a moderate size lipohemarthrosis. Soft Tissues: Atherosclerotic calcification is present. IMPRESSION: 1. There is a depressed lateral tibial plateau fracture. The fracture is depressed almost 9 mm, particularly laterally and posteriorly. 2. There is a moderate-sized lipohemarthrosis. 3. The preliminary [facility] report was reviewed. RADIATION DOSE DELIVERED: 152.54mGy.cm Total DLP 152.54mGy.cm Total DLP DATA REPOSITORY: All CT scans at this facility are submitted to the National Radiology Data Registry (NRDR) Dose Index Registry (DIR) with the [employer] (ACR). RADIATION OPTIMIZATION: All CT scans at this facility use at least one of these dose optimization techniques: automated exposure control; mA and/or kV adjustment per patient size (includes targeted exams where dose is matched to clinical indication); or iterative reconstruction.
--- NOTE | 2024-12-16 21:23 | ED.GENADUL_ITS ---
Discharge Plan Disposition Patient Disposition: Admit to [facility] Condition: Stable Discharge Details Clinical Impression: Closed fracture of tibial plateau, Superficial bruising of chest wall, Contusion of right shoulder Primary Care Provider: Unknown,Unknown ED Provider: Kourtney Zepeda Home Meds and New Rx's Prescriptions: No Action valacyclovir 1 gram tablet 1,000 mg PO TID Qty: 21 0RF lisinopril 5 mg tablet 5 mg PO DAILY ezetimibe [Zetia] 10 mg tablet 10 mg PO DAILY esomeprazole magnesium [Nexium] 40 MG capsule,delayed release(DR/EC) 40 mg PO DAILY Eye Vitamin and Minerals 1 EACH tablet 1 ea PO DAILY Patient Comments: ARED2 (Prezavision) for macular degeneration aspirin [Aspir-81] 81 MG tablet,delayed release (DR/EC) 81 mg PO DAILY metoprolol tartrate 25 MG tablet 50 mg PO BID nitroglycerin [Nitrostat] 0.4 MG tablet, sublingual 0.4 mg Sublingual Q5 MIN PRN X3 PRNQty: 0 0RF lidocaine [Lidoderm] 5 % adhesive patch,medicated 1 patch topical DAILY Qty: 1 0RF Rx Instructions: leave on most painful area for up to 12 hrs HPI General Date/Time Provider Initiated Documentation: 12/16/24 16:10 . HPI Narrative: 83-year-old female presents for follow-up after falling off a ladder. Fell approximately 5 feet onto grass, landing on chest. Complains of shoulder, chest, and right knee pain. Difficulty ambulating due to discomfort. No head trauma or loss of consciousness. Related Data Home Medications ?Medication ?Instructions ?Recorded ?Confirmed esomeprazole magnesium 40 mg 40 mg PO DAILY 12/13/13 0 12/16/24 capsule,delayed release (Nexium) vit A 7,160 unit-vit C 113 mg-vit 1 ea PO DAILY 12/16/24 E 100 [id number] tablet (Eye Vitamin and Minerals) aspirin 81 mg tablet,delayed 81 mg PO DAILY 11/25/17 0 12/16/24 release (Aspir-) metoprolol tartrate 25 mg tablet 50 mg PO BID 11/25/17 12/16/24 nitroglycerin 0.4 mg sublingual 0.4 mg sublingual Q5 M IN PRN X3 11/26/17 12/16/24 tablet (Nitrostat) PRN ##0 lisinopril 5 mg tablet 5 mg PO DAILY 08/10/1812/16 ezetimibe 10 mg tablet (Zetia) 10 mg PO DAILY 05/05/20 12/16/24 lidocaine 5 % topical patch 1 patch topical DAILY #1 e a 09/17/21 12/16/24 (Lidoderm) valacyclovir 1 gram tablet 1,000 mg PO TID #21 tabs 12/16/24 Previous Rx's ?Medication ?Instructions ?Recorded nitroglycerin 0.4 mg sublingual 0.4 mg sublingual Q5 M IN PRN X3 11/26/17 tablet (Nitrostat) PRN ##0 lidocaine 5 % topical patch 1 patch topical DAILY #1 e a 09/17/21 (Lidoderm) valacyclovir 1 gram tablet 1,000 mg PO TID #21 tabs Allergies Allergy/AdvReac Type Severity Reaction Status Date / Time sulfamethoxazole (From Allergy Mild unknown Verified 12/16/24 16:02 Bactrim) trimethoprim (From Bactrim) Allergy Mild unknown Verified 12/16/24 16:02 cyclobenzaprine Allergy Unknown Verified 12/16/24 16:02 NSAIDS (Non-Steroidal Allergy Unknown Verified 12/16/24 16:02 Anti-Inflamma atorvastatin (From Lipitor) AdvReac Severe unknown Verified 12/16/24 16:02 General Stated Complaint: Fall/Non TraumaCriteria ALMA: 3 Exam Narrative Exam Narrative: General Appearance: Fully alert and oriented. No acute distress. Vital signs: Within normal limits. HEENT: No visible trauma. Respiratory: Within normal limits. Gastrointestinal: No abdominal tenderness. Back, Musculoskeletal: No cervical spine tenderness. No lumbar or thoracic spine tenderness. Extremities: Ecchymosis to right chest wall and right shoulder. Right knee swollen and tender. No tenderness to right hip or ankle. Skin: Ecchymosis to right chest wall and right shoulder. Neurological: Neurovascularly intact. Course Vital Signs Vital signs: Vital Signs Temperature 36.6 C 12/16/24 15:59 Pulse 84 12/16/24 15:59 Respiratory Rate 20 12/16/24 15:59 Blood Pressure 177/70 H 12/16/24 15:59 Pulse Oximetry 91 L 12/16/24 15:59 Temperature 36.6 C 12/16/24 15:59 Pulse 86 12/16/24 21:04 Respiratory Rate 20 12/16/24 15:59 Blood Pressure 133/110 H 12/16/24 21:01 Blood Pressure Mean 118 12/16/24 21:01 Blood Pressure Position Sitting 12/16/24 15:59 Pulse Oximetry 91 L 12/16/24 21:04 Oxygen Delivery Method Room Air 12/16/24 15:59 Oxygen Flow Rate 0 12/16/24 15:59 Lab/Test Results Lab/Test Results: Laboratory Tests Range/Units 12/16/24 17:01 WBC (4.4-10.8) 10^3/uL 13.13 H RBC (3.93-5.22) 10^6/uL 3.84 L Hgb (11.2-15.7) g/dL 11.5 Hct (36.0-46.0) % 37.6 MCV (80-95) fL 98 H MCH (27.0-33.0) pg 29.9 MCHC (32.0-36.0) % 30.6 L RDW (11.7-14.6) % 12.2 Plt Count (130-400) 10^3/uL 191 MPV (8.0-11.0) fL 10.1 Immature Gran % % 0.6 Neutrophils % % 87.4 Lymphocytes % % 6.9 Monocytes % % 4.4 Eosinophils % % 0.1 Basophils % % 0.6 Nucleated RBC % (0.0-0.3) % 0.0 Absolute Neutrophils (1.2-6.7) 10^3/uL 11.48 H Absolute Lymphocytes (1.2-3.4) 10^3/uL 0.91 L Absolute Monocytes (0.1-0.8) 10^3/uL 0.58 Absolute Eosinophils (0.0-0.7) 10^3/uL 0.01 Absolute Basophils (0.0-0.2) 10^3/uL 0.08 Sodium (136-145) mmol/L 143 Potassium (3.5-5.1) mmol/L 4.1 Chloride (98-107) mmol/L 107 Carbon Dioxide (21.0-32.0) mmol/L 24.9 Anion Gap (3-11) mmol/L 11.1 H BUN (7-18) mg/dL 23 H Creatinine (0.55-1.02) mg/dL 1.0 Est GFR (CKD-EPI 2020) (mL/min/1.73m2) 55.90 Glucose (74-106) mg/dL 114 H Calcium (8.5-10.1) mg/dL 8.9 Total Bilirubin (0.2-1.0) mg/dL 0.7 AST (15-37) U/L 26 ALT (14-59) U/L 26 Alkaline Phosphatase (46-116) U/L 139 H Total Protein (6.4-8.2) g/dL 7.7 Albumin (3.4-5.0) g/dL 3.5 Lipase (<78) U/L [address] head, cervical spine, chest, abdomen, and pelvis show no acute abnormality. X-ray of right shoulder shows no acute abnormality. Initial Assessment: 83-year-old female fell approximately 5 feet from a ladder onto grass. Complains of shoulder, chest, and right knee pain. Difficulty ambulating due to discomfort. Denies head trauma or loss of consciousness. Differential Diagnosis: - Head injury: No head trauma or loss of consciousness. CT head and cervical spine ordered. - Cervical spine injury: No cervical spine tenderness. CT cervical spine ordered. - Thoracic spine injury: No thoracic spine tenderness. CT chest ordered. - Lumbar spine injury: No lumbar spine tenderness. CT abdomen and pelvis ordered. - Right shoulder injury: Ecchymosis present. X-ray ordered. - Right knee injury: Swollen and tender. Imaging ordered. - Right hip injury: No tenderness. No imaging ordered. - Right ankle injury: No tenderness. No imaging ordered. ED Course: - CT head and cervical spine obtained. No acute abnormality. - CT chest, abdomen, and pelvis obtained. No acute abnormality. - X-ray right shoulder obtained. No acute abnormality. - Morphine and Tylenol administered. Final Assessment: Imaging studies show no acute abnormalities. Significant fall risk due to lateral tibial plateau fracture. Pain managed with morphine and Tylenol. Clinical Impression: - Lateral tibial plateau fracture, minimally displaced - Right shoulder contusion - Right knee contusion Disposition: - Admission for care management and PT. - Follow-Up: PT in the morning at 0800 hours. [facility] All Active Problems (Updated 06/16/25 @ 21:26 by SARITA Gross) Contusion of right shoulder (Acute) Superficial bruising of chest wall (Acute) Closed fracture of tibial plateau (Acute) Gall stone pancreatitis (Acute) S/P laparoscopic cholecystectomy (Acute) Hx of gastroesophageal reflux (GERD) (Acute) History of hypertension (Acute) Traumatic closed displaced fracture of proximal end of right humerus with routine healing (Acute 11/16/15) Fracture of humeral head (Acute) IBS (irritable bowel syndrome) (Chronic) Diverticulosis (Chronic) GERD (gastroesophageal reflux disease) (Chronic) Cerebral aneurysm (Acute) 10/16/00 Pt has not had any current issues r/t to this dx Hyperlipidemia (Chronic) Hypertension (Chronic) 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 last seen 02/2020 Macular degeneration (Chronic) Vertigo (Acute) Medical History Barretts esophagus Breast cancer in female Breast cancer screening Chronic back pain Diverticulosis of colon Eczema Fracture of proximal end of humerus Hematuria Hiatal hernia History of IBS Lichen planus Lumbar herniated disc STEMI (ST elevation myocardial infarction) Subarachnoid hemorrhage Surgical History Barretts Esophagus Breast, Mastectomy right, [place] pt. states it was not a mastectomy but a lumpectomy Endopyelotomy Retrograde herniated disc repair L5-S1 in 1973 for L leg radiculopathy , Ectopic x2 Repair of inguinal hernia left S/P dilatation of esophageal stricture numerous! 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
--- NOTE | 2024-12-16 21:27 | DI.VRAD_ITS ---
PROCEDURE INFORMATION: Exam: CT Right Lower Extremity Without Contrast, Knee Exam date and time: 12/16/2024 8:22 PM Age: 83 years old Clinical indication: Other: Fracture right knee TECHNIQUE: Imaging protocol: CT of the right lower extremity without contrast was performed. Exam focused on the knee. COMPARISON: CR XR KNEE RT 3V AP,LAT,RITA 12/16/2024 5:54 PM FINDINGS: Bones/joints: Moderate lipohemarthrosis in the suprapatellar bursa. . Depressed fracture of the lateral tibial plateau (series 8, image 46 -31; series 10 image 22- 33). Soft tissues: Soft tissue swelling of the knee IMPRESSION: 1. Moderate lipohemarthrosis in the suprapatellar bursa. . 2. Depressed fracture of the lateral tibial plateau (series 8, image 46 -31; series 10 image 22- 33). Dictated and Authenticated by: Jez Wang MD. Orderin Duane Oconnell MD
--- NOTE | 2024-12-16 21:53 | W.PM.HP.N ---
Date of service: 12/16/24 Time of Service: 21:53 Assessment and Plan Assessment and plan (1) Contusion of right shoulder: Status: Acute Assessment and plan: some limited ROM with right shoulder, x-ray negative, will have PT eval tomorrow and discuss with ortho if appropriate (2) Closed fracture of tibial plateau: Status: Acute Assessment and plan: seen by ortho and per ED report is non-operative activity per ortho PT in AM tylrob dasilvaam for pain (3) History of hypertension: Status: Acute Assessment and plan: continue lisinopril and metoprolol (4) Hyperlipidemia: Status: Chronic Assessment and plan: appears to be statin intolerance ezetimibe History of Present Illness Narrative: 83 yo female presented to the ED after a mechanical fall. She had noticed some bird poop on the side of her house and was in the process of trying to clean it up. She used a small step ladder, a bird came out of the next and startled her, sending her toppling to the concrete below. She noticed severe pain in her right leg to the point where she was not able to get up immediately. With much effort she eventually got back into her home where she called her daughter and ultimately was brought to the ED. She had no loss of consciousness, did not hit her head and was feeling perfectly fine prior to the mechanical fall. No recent illness such as URI, no urinary symptoms such as pain or burning on urination. Not feeling short of breath and no cough, does not know why the put O2 on her in the ED. No recent fever. Looking forward to her birthday later this week. All other ROS is negative. PFSH All Active Problems (Updated 12/16/24 @ 21:26 by SARITA Gross) Closed fracture of tibial plateau (Acute) Contusion of right shoulder (Acute) Superficial bruising of chest wall (Acute) Gall stone pancreatitis (Acute) S/P laparoscopic cholecystectomy (Acute) Hx of gastroesophageal reflux (GERD) (Acute) History of hypertension (Acute) Traumatic closed displaced fracture of proximal end of right humerus with routine healing (Acute 11/16/15) Fracture of humeral head (Acute) IBS (irritable bowel syndrome) (Chronic) Diverticulosis (Chronic) GERD (gastroesophageal reflux disease) (Chronic) Cerebral aneurysm (Acute) 10/16/00 Pt has not had any current issues r/t to this dx Hyperlipidemia (Chronic) Hypertension (Chronic) 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 last seen 02/2020 Macular degeneration (Chronic) Vertigo (Acute) Medical History Barretts esophagus Breast cancer in female Breast cancer screening Chronic back pain Diverticulosis of colon Eczema Fracture of proximal end of humerus Hematuria Hiatal hernia History of IBS Lichen planus Lumbar herniated disc STEMI (ST elevation myocardial infarction) Subarachnoid hemorrhage Surgical History Barretts Esophagus Breast, Mastectomy right, [place] pt. states it was not a mastectomy but a lumpectomy Endopyelotomy Retrograde herniated disc repair L5-S1 in 1973 for L leg radiculopathy , Ectopic x2 Repair of inguinal hernia left S/P dilatation of esophageal stricture numerous! 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 Current gender identity: female What is your relationship status?: Panel score (0-1 are the most socially isolated patients): 0 Do you feel safe at home: Yes Do you feel safe in your relationship?: Yes Additional Social history: lives alone Meds Allergies and Home Medications Allergies Allergy/AdvReac Type Severity Reaction Status Date / Time sulfamethoxazole (From Allergy Mild unknown Verified 12/16/24 16:02 Bactrim) trimethoprim (From Bactrim) Allergy Mild unknown Verified 12/16/24 16:02 cyclobenzaprine Allergy Unknown Verified 12/16/24 16:02 NSAIDS (Non-Steroidal Allergy Unknown Verified 12/16/24 16:02 Anti-Inflamma atorvastatin (From Lipitor) AdvReac Severe unknown Verified 12/16/24 16:02 Home Medications ?Medication ?Instructions ?Recorded ?Confirmed ?Type esomeprazole magnesium 40 mg 40 mg PO DAILY 12/13/13 12/16/24 History capsule,delayed release (Nexium) vit A 7,160 unit-vit C 113 mg-vit 1 ea PO DAILY 08/24/15 12/16/24 History E 100 [id number] tablet (Eye Vitamin and Minerals) aspirin 81 mg tablet,delayed 81 mg PO DAILY 11/25/17 12/16/24 History release (Aspir-) metoprolol tartrate 25 mg tablet 50 mg PO BID 11/25/17 12/16/24 History nitroglycerin 0.4 mg sublingual 0.4 mg sublingual Q5 MIN PRN X3 11/26/17 12/16/24 Rx tablet (Nitrostat) PRN ##0 lisinopril 5 mg tablet 5 mg PO DAILY 08/10/18 12/16/24 History ezetimibe 10 mg tablet (Zetia) 10 mg PO DAILY 05/05/20 12/16/24 History lidocaine 5 % topical patch 1 patch topical DAILY #1 ea 09/17/21 12/16/24 Rx (Lidoderm) valacyclovir 1 gram tablet 1,000 mg PO TID #21 tabs 03/30/24 12/16/24 Rx Exam Const General: healthy appearing and no acute distress Cardio Rate: regular rate Rhythm: regular rhythm Heart Sounds: S1 normal and S2 normal GI Palpation: soft Auscultation: normal bowel sounds Neuro General: patient alert, patient awake and no focal motor deficits Motor: no movement abnormalities noted Extrem Other: RLE with brace right shoulder with limited ROM Psych Mental Status: mental status grossly normal Results Labs 12/16/24 17:01 12/16/24 17:01 Labs: Laboratory Results - last 24 hr 12/16/24 17:01 WBC 13.13 H RBC 3.84 L Hgb 11.5 Hct 37.6 MCV 98 H MCH 29.9 MCHC 30.6 L RDW 12.2 Plt Count 191 MPV 10.1 Immature Gran % 0.6 Neutrophils % 87.4 Lymphocytes % 6.9 Monocytes % 4.4 Eosinophils % 0.1 Basophils % 0.6 Nucleated RBC % 0.0 Absolute Neutrophils 11.48 H Absolute Lymphocytes 0.91 L Absolute Monocytes 0.58 Absolute Eosinophils 0.01 Absolute Basophils 0.08 Sodium 143 Potassium 4.1 Chloride 107 Carbon Dioxide 24.9 Anion Gap 11.1 H BUN 23 H Creatinine 1.0 Est GFR (CKD-EPI 2020) 55.90 Glucose 114 H Calcium 8.9 Total Bilirubin 0.7 AST 26 ALT 26 Alkaline Phosphatase 139 H Total Protein 7.7 Albumin 3.5 Lipase 37 Last Vital Signs Temp 36.6 C 12/16/24 15:59 Pulse 84 12/16/24 21:45 Resp 20 12/16/24 15:59 BP 130/53 L 12/16/24 21:45 Pulse Ox 99 12/16/24 21:45 Time Spent Time spent with Patient: 55-74 minutes Time was spent: preparing to see the patient(eg.review tests), obtaining and/or reviewing separately otained hiistory and ordering medications,tests, procedures
--- NOTE | 2024-12-16 22:40 | W.PC.ACHO ---
Registration Status: REG ER Primary Language: Preferred Language: French ED Information & Data Chief Complaint Fall/Non TraumaCriteria 12/16/24 21:25 Triage Note Fell backwards down several 12/16/24 15:59 concrete steps outside her home after being surprised by a bird. PT reports pain in R shoulder and back of R calf. Denies pain in head or neck. Medical / Surgical History (Last Reviewed 09/17/21 @ 10:21 by SARITA Kidd) Hiatal hernia Fracture of proximal end of humerus Eczema History of IBS Chronic back pain Hematuria Lumbar herniated disc Diverticulosis of colon Lichen planus Subarachnoid hemorrhage Barretts esophagus Breast cancer in female STEMI (ST elevation myocardial infarction) Breast cancer screening (Last Reviewed 09/17/21 @ 10:21 by SARITA Kidd) S/P dilatation of esophageal stricture herniated disc repair Sigmoidoscopy , Ectopic Repair of inguinal hernia Endopyelotomy Retrograde Breast, Mastectomy Barretts Esophagus Most Recent Vital Signs Temperature 36.6 C 12/16/24 15:59 Pulse 80 12/16/24 22:31 Respiratory Rate 20 12/16/24 15:59 Blood Pressure 105/48 L 12/16/24 22:30 Blood Pressure Mean 65 12/16/24 22:30 Blood Pressure Position Sitting 12/16/24 15:59 Pulse Oximetry 98 12/16/24 22:31 Oxygen Delivery Method Room Air 12/16/24 15:59 Oxygen Flow Rate 0 12/16/24 15:59 Allergies sulfamethoxazole (From Bactrim) Allergy (Mild, Verified 12/16/24 16:02) unknown trimethoprim (From Bactrim) Allergy (Mild, Verified 12/16/24 16:02) unknown cyclobenzaprine Allergy (Verified 12/16/24 16:02) Unknown upset stomach NSAIDS (Non-Steroidal Anti-Inflamma Allergy (Verified 12/16/24 16:02) Unknown unknown atorvastatin (From Lipitor) Adverse Reaction (Severe, Verified 12/16/24 16:02) unknown upset stomach Active Medications Generic Name Dose Route Start Last Admin Trade Name Freq PRN Reason Stop Dose Admin Iohexol 75 ml 12/16/24 18:00 12/16/24 17:54 Omnipaque 350 Mg/Ml 100 Ml Btl IJ 01/15/25 23:59 75 ml DIRECTED NILDA Administration Sodium Chloride 50 ml 12/16/24 18:00 06/16/25 17:57 Normal Saline - Diluent 50 Ml Vial IJ 50 ml .FOR DI USE NILDA Administration Diet Orders Category Date Time Status Regular/Normal [DIET] Nutrition 12/17/24 Breakfast Ordered Diagnostics 12/16/24 Range/Units 17:01 WBC 13.13 H (4.4-10.8) 10^3/uL RBC 3.84 L (3.93-5.22) 10^6/uL Hgb 11.5 (11.2-15.7) g/dL Hct 37.6 (36.0-46.0) % MCV 98 H (80-95) fL MCH 29.9 (27.0-33.0) pg MCHC 30.6 L (32.0-36.0) % RDW 12.2 (11.7-14.6) % Plt Count 191 (130-400) 10^3/uL MPV 10.1 (8.0-11.0) fL Immature Gran % 0.6 % Neutrophils % 87.4 % Lymphocytes % 6.9 % Monocytes % 4.4 % Eosinophils % 0.1 % Basophils % 0.6 % Nucleated RBC % 0.0 (0.0-0.3) % Absolute Neutrophils 11.48 H (1.2-6.7) 10^3/uL Absolute Lymphocytes 0.91 L (1.2-3.4) 10^3/uL Absolute Monocytes 0.58 (0.1-0.8) 10^3/uL Absolute Eosinophils 0.01 (0.0-0.7) 10^3/uL Absolute Basophils 0.08 (0.0-0.2) 10^3/uL Sodium 143 (136-145) mmol/L Potassium 4.1 (3.5-5.1) mmol/L Chloride 107 (98-107) mmol/L Carbon Dioxide 24.9 (21.0-32.0) mmol/L Anion Gap 11.1 H (3-11) mmol/L BUN 23 H (7-18) mg/dL Creatinine 1.0 (0.55-1.02) mg/dL Est GFR (CKD-EPI 2020) 55.90 (mL/min/1.73m2) Glucose 114 H (74-106) mg/dL Calcium 8.9 (8.5-10.1) mg/dL Total Bilirubin 0.7 (0.2-1.0) mg/dL AST 26 (15-37) U/L ALT 26 (14-59) U/L Alkaline Phosphatase 139 H (46-116) U/L Total Protein 7.7 (6.4-8.2) g/dL Albumin 3.5 (3.4-5.0) g/dL Lipase 37 (<78) U/L Intake and Output - 24 Hour Total 12/16/24 15:53 thru 12/16/24 15:59 Weight 48.988 kg Falls Risk Assessment History of Falls No History 12/16/24 17:09 Contributing Factors No Factors 12/16/24 17:09 Ambulatory Aids Independent 12/16/24 17:09 Tubes/Lines None 12/16/24 17:09 Gait Evaluation No gait disturbance 12/16/24 17:09 Cognition No cognitive impairment 12/16/24 17:09 Fall Total Score 0 12/16/24 17:09 Level of Risk Standard/Low Risk 12/16/24 17:09 Problems (Last Reviewed 09/17/21 @ 10:21 by SARITA Kidd) Closed fracture of tibial plateau (Acute) Contusion of right shoulder (Acute) History of hypertension (Acute) Hyperlipidemia (Chronic) v v v v v v v v v Sending and/or Receiving Nurses: Please use comment section below to note any information pertinent to the patient hand-off not included above. Information / Comments: fell at home, has a tibial plateau fracture. currently in knee immobilizer. A&O, pleasant. got morphine and tylenol. After meds desatted to high 80s. on 2L NC satting high 90s Report received from: JEANNE Sigala. called @ [phone]
[2024-12-17 07:03] LABS: Abs Immature Grans 0.02 10^3/uL (0.0-0.06); Absolute Basophil Count 0.09 10^3/uL (0.0-0.2); Absolute Eosinophil Count 0.16 10^3/uL (0.0-0.7); Absolute Lymphocyte Count 1.16 10^3/uL (1.2-3.4); Absolute Monocyte Count 0.75 10^3/uL (0.1-0.8); Absolute Neutrophil Count 6.95 10^3/uL (1.2-6.7); Eosinophils % 1.8 %; HCT 33.2 % (36.0-46.0); Immature Grans % 0.2 %; Lymphocytes % 12.7 %; MCH 29.8 pg (27.0-33.0); MCHC 30.1 % (32.0-36.0); MCV 99 fL (80-95); MPV 11.2 fL (8.0-11.0); Monocytes % 8.2 %; Neutrophils % 76.1 %; Platelet Count 162 10^3/uL (130-400); RBC 3.36 10^6/uL (3.93-5.22); RDW 12.3 % (11.7-14.6); RDW-SD 44.8 fL; WBC 9.13 10^3/uL (4.4-10.8)
--- NOTE | 2024-12-17 07:27 | W.ORTHOCONSU ---
Date of service: 12/17/24 Time of Service: 07:27 History of Present Illness History of Present Illness Chief Complaint: Right Knee Injury Narrative: Lisandra is an 83-year-old female who was up on a stepladder trying to sweep away a bird nest when the bird flew at her, causing her to stumble off of the stepladder and down 3 cement stairs. She landed awkwardly with pain mostly in her back, right shoulder and right leg. She tried to mobilize was unable to. She had pain with mobilization. She is brought to the emergency department with a full workup, identifying primarily a posterolateral tibial plateau fracture with some depression posterolaterally. She attempted mobilization in the emergency department was unable to. She is been placed in a knee immobilizer. She denies numbness or tingling. She denies hip or groin pain. She does report pain as she tries to move the leg over the anterior leg distal to the knee but not extending to the ankle. Consults Consult date: 12/17/24 Requesting physician: Kourtney Zepeda Consult Reason Right tibial plateau fracture Assessment and Plan Assessment and plan (1) Closed fracture of tibial plateau: Status: Acute Assessment and plan: Lisandra is an 83-year-old female who unfortunately fell down some stairs. She has a posterior lateral tibial plateau fracture. This is in essence a Schatzker 2/3, depression fracture. It mostly involves the posterior lateral aspect of the tibial plateau. Given the appearance of the bone, concomitant arthrosis and chondrocalcinosis, and relatively preserved weightbearing position of the tibial plateau, I would recommend nonoperative treatment. I did discuss this briefly with Lisandra about operative options but given her bone quality and the location of the depression, make surgery challenging and does not afford many benefits. At this point she may be partial weightbearing, toe-touch weightbearing, or what ever she can tolerate however not full weightbearing, on the right lower extremity with a knee immobilizer and assistive device. We will remain in this restriction for approximately 4 to 6 weeks and then slowly increase activities including range of motion and weightbearing. If there is prolonged pain or continued pain after fracture healing, knee replacement could also be considered. I recommend continued physical therapy for discharge planning. She may remove or at least loosen the knee immobilizer when laying in the bed, however, this should be secured when sleeping. Review of Systems All systems reviewed & are unremarkable except as noted in HPI and below PFSH All Active Problems Closed fracture of tibial plateau (Acute) Contusion of right shoulder (Acute) Superficial bruising of chest wall (Acute) Gall stone pancreatitis (Acute) S/P laparoscopic cholecystectomy (Acute) Hx of gastroesophageal reflux (GERD) (Acute) History of hypertension (Acute) Traumatic closed displaced fracture of proximal end of right humerus with routine healing (Acute 11/16/15) Fracture of humeral head (Acute) IBS (irritable bowel syndrome) (Chronic) Diverticulosis (Chronic) GERD (gastroesophageal reflux disease) (Chronic) Cerebral aneurysm (Acute) 10/16/00 Pt has not had any current issues r/t to this dx Hyperlipidemia (Chronic) Hypertension (Chronic) 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 herniated disc repair L5-S1 in 1973 for L leg radiculopathy Sigmoidoscopy x2 , Ectopic x2 Repair of inguinal hernia left Endopyelotomy Retrograde Breast, Mastectomy right, [place] pt. states it was not a mastectomy but a lumpectomy Barretts Esophagus Family History Father Heart disease Social History Smoking/Tobacco Use Status: Former Tobacco Use Quit Date: 07/03/79 Smoking risk assessment performed?: Yes Alcohol Intake: never Drug use: Never Substance use type: does not use Household members: none Housing: house Number of Children: 1 current occupation: Retired [employer] Current gender identity: female What is your relationship status?: Panel score (0-1 are the most socially isolated patients): 0 Do you feel safe at home: Yes Do you feel safe in your relationship?: Yes Additional Social history: lives alone Exam Extrem Other: No acute distress. Alert and orient x 3. Resting comfortably in hospital bed. No gross deformity seen to the right lower extremity for some mild swelling. No ecchymosis. No abrasions. No lacerations. She does have exquisite pain to palpation about the knee and the proximal right leg. Further evaluation of the right lower extremity shows no pain to palpation of the ankle, foot, or distal tib-fib region. She has no pain to palpation of the proximal femur. Gentle internal and external rotation of the right leg does not increase any pain. However, she has exquisite pain with any testing of the right knee. In extension she does not have any collapse into valgus although she does have significant recreation of pain. There is some pain along the IT band and Radha's tubercle. No skin defects. Sensation intact to light touch of the deep and superficial peroneal nerve and tibial nerve. Brief evaluation of left lower extremity shows no pain to palpation throughout the left lower extremity. He is able to actively and passively move the ankle, knee, and hip. Sensation intact to light touch from L3-S1. Results Last Vital Signs Temp 37.1 C 12/16/24 23:00 Pulse 85 12/16/24 23:00 Resp 18 12/16/24 23:00 BP 135/71 12/16/24 23:00 Pulse Ox 98 12/16/24 23:00 Labs 12/17/24 06:00 12/16/24 17:01 Labs: Laboratory Results - last 24 hr 12/16/24 12/17/24 17:01 06:00 WBC 13.13 H 9.13 RBC 3.84 L 3.36 L Hgb 11.5 10.0 L Hct 37.6 33.2 L MCV 98 H 99 H MCH 29.9 29.8 MCHC 30.6 L 30.1 L RDW 12.2 12.3 Plt Count 191 162 MPV 10.1 11.2 H Immature Gran % 0.6 0.2 Neutrophils % 87.4 76.1 Lymphocytes % 6.9 12.7 Monocytes % 4.4 8.2 Eosinophils % 0.1 1.8 Basophils % 0.6 1.0 Nucleated RBC % 0.0 0.0 Absolute Neutrophils 11.48 H 6.95 H Absolute Lymphocytes 0.91 L 1.16 L Absolute Monocytes 0.58 0.75 Absolute Eosinophils 0.01 0.16 Absolute Basophils 0.08 0.09 Sodium 143 Potassium 4.1 Chloride 107 Carbon Dioxide 24.9 Anion Gap 11.1 H BUN 23 H Creatinine 1.0 Est GFR (CKD-EPI 2020) 55.90 Glucose 114 H Calcium 8.9 Total Bilirubin 0.7 AST 26 ALT 26 Alkaline Phosphatase 139 H Total Protein 7.7 Albumin 3.5 Lipase 37 Imaging Imaging Studies: X-ray of the right knee shows a depressed tibial plateau fracture of the lateral tibial plateau. Bones appear generally osteopenic and demineralized. CT scan of the right knee shows a depressed fracture of the lateral tibial plateau. There is no clear split fracture. The depression extends from the central portion of the tibial plateau out posterolaterally. The majority of the depression, which is approximately 5 to 8 mm, is exiting laterally. There is no significant depression up to the mid coronal plane of the knee. There are notable signs of chondrocalcinosis and some signs of moderate arthrosis about the knee as well. No other fracture extension is identified. No suspicious lesions
[2024-12-17 07:45] VITALS: BP 156/57; PULSE 84; RESP 12; TEMP 36.4; O2SAT 95
[2024-12-17] MEDS: Enoxaparin 40 MG/0.4 ML SYR SC (07:55)
[2024-12-17] MEDS: Preservision CAPSULE 1 CAP PO (07:56)
[2024-12-17] MEDS: Aspirin E.C. 81 MG TABEC PO (07:56)
[2024-12-17] MEDS: Lidocaine 5% Patch 1 PATCH TP (07:56)
[2024-12-17] MEDS: Metoprolol 50 MG TAB PO ×2 (07:56→20:24)
[2024-12-17] MEDS: Esomeprazole 40 MG CAPCR PO (07:57)
[2024-12-17] MEDS: Lisinopril 5 MG TAB PO (07:57)
[2024-12-17] MEDS: valACYclovir 1,000 MG TAB 1000 MG PO (09:31)
--- NOTE | 2024-12-17 09:51 | INITIAL_ITS ---
Date of service: 12/17/24 Time of Service: 09:51 Care Management Initial Assmt Initial Assessment Reason for Hospitalization: s/p fall with resulting tibial fracture, contusion of right shoulder and bruising of the chest wall. Functional Status/Living Situation Patient Presentation: Lisandra was brought to the ED yesterday evening. She is s/p a fall yesterday off of a step ladder. She does not believe she hit her head, and had no symptoms out of the ordinary prior to the fall. Lisandra had an ortho consult this morning. She has been placed in a knee immobilizer. She will be on partial weight bearing limitation for 4-6 weeks with the immobilizer and assistive device. CM met with Lisandra, her daughter, Veronica, and granddaughter, Ashlie at noon today. All 3 women were meera. Lisandra had just worked with PT to get up in the chair for lunch. She said it was a bit tough, but she was glad to be out of bed. Lisandra is independent at baseline, although she has assistance with transportation. She is living alone, family is very supportive. It does not seem safe for Lisandra to return home at this time. She has many stairs in the home, no single level living, and also has shag carpeting. Lisandra is noted to be on the ACO waiver list. CM discussed with the family that Lisandra is in observation status, and that a 3 night inpatient stay is required for SNF admission. However, Lisandra is on the ACO list, and there are certain facilities that will accept clients without this 3 night stay. Referrals were sent to the O waiver facilities, and also to [facility], as Lisandra has stated that this is her preference. Family is aware that [place] is not an ACO waiver facility, but they have a contact who works there. Town of Residence: [place], [place] Resides with: Alone Significant Other/Family: Local (Daughter, Veronica and her , Lui. granddaughter, Ashlie) Natural Supports: family Employment Status: Retired Instrumental Activities of Daily Living (ADLs): Independent Medications Medication Management: No Issues/Barriers identified Physical Functioning/Mobility Assistive Device: has been independent Advance Directives Advance Directives: Do you have an Advance Directive: N , 11:24 AD On File at [facility]: N 05/06/13, 11:24 Date Asked 12/16/24 12/16/24, 15:59 AD Date Reviewed COLST On File at [facility] COLST Date Scanned Code Status Resuscitation Status Full Code Insurance Coverage/Financial Issues Insurance: Medicare Part A & B BC/BS Out of State Care Team Visit Care Team Role Provider Type Dayna Cervantes APRN MD [facility] STAFF PHYSICIAN Unknown Unknown Primary Care Provider STAFF PHYSICIAN InPatient Sanya Gerardo Other Providers OTHER SARITA Gross Emergency Provider PHYSICIANS BODY JOINER Leo He MD Admit Provider [facility] STAFF PHYSICIAN Attending Provider Discharge Potential Discharge Needs: PT Evaluation, PCP F/U Appt and Surgical F/U Appt ( ortho) Anticipated Barriers to Discharge: None Identified Patient/Family Education Needs: Review discharge instructions, discuss Ask Me Three Transportation: Private vehicle (vs RCT) Plan: Lisandra will require some short term rehab before returning home. Referrals were sent as above. Lisandra with f/u with her PCP and also with ortho. She will transport via private vehicle. CM will continue to update the family and the plan as needed. CM will check on status of referrals tomorrow. Social Determinants of Health Screening Social Determinants of health last assessed in clinic: 12/17/24 Will the Patient Participate in the Screening?: Yes Do you worry about having a steady place to live?: no Problems where you live: no known problems In the past 12 months, have you had to go without electric, gas, oil or water in your home?: no 1. Within the past 12 months, we worried whether our food would run out before we got money to buy more.: Never true 2. Within the past 12 months, the food we bought just didn't last and we didn't have money to get more.: Never true Has lack of transportation kept you from medical appointments or from doing things needed for daily living?: no Has anyone in your life made you feel unsafe or unsupported?: no How hard is it for you to pay for the very basics like food, housing, medical care, and heating? Would you say it is:: Not hard at all Do you want help finding or keeping work or a job?: I do not need or want help If for any reason you need help with day-to-day activities such as bathing, preparing meals, shopping, managing finances, etc., do you get the help you need?: I don?t need any help How often do you feel lonely or isolated from those around you?: Never Do you speak a language other than Korean at home?: No Does the patient want assistance with any of the above?: No PFSH All Active Problems Closed fracture of tibial plateau (Acute) Contusion of right shoulder (Acute) Superficial bruising of chest wall (Acute) Gall stone pancreatitis (Acute) S/P laparoscopic cholecystectomy (Acute) Hx of gastroesophageal reflux (GERD) (Acute) History of hypertension (Acute) Traumatic closed displaced fracture of proximal end of right humerus with routine healing (Acute 11/16/15) Fracture of humeral head (Acute) IBS (irritable bowel syndrome) (Chronic) Diverticulosis (Chronic) GERD (gastroesophageal reflux disease) (Chronic) Cerebral aneurysm (Acute) 10/16/00 Pt has not had any current issues r/t to this dx Hyperlipidemia (Chronic) Hypertension (Chronic) 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 last seen 02/2020 Macular degeneration (Chronic) Vertigo (Acute) Medical History Hiatal hernia Fracture of proximal end of humerus Eczema History of IBS Chronic back pain Hematuria Lumbar herniated disc Diverticulosis of colon Lichen planus Subarachnoid hemorrhage Barretts esophagus Breast cancer in female STEMI (ST elevation myocardial infarction) Breast cancer screening Surgical History S/P dilatation of esophageal stricture numerous! herniated disc repair L5-S1 in 1974 for L leg radiculopathy Sigmoidoscopy x2 , Ectopic x2 Repair of inguinal hernia left Endopyelotomy Retrograde Breast, Mastectomy right, [place] pt. states it was not a mastectomy but a lumpectomy Barretts Esophagus Family History Father Heart disease Social History Smoking/Tobacco Use Status: Former Tobacco Use Quit Date: 07/03/79 Smoking risk assessment performed?: Yes Alcohol Intake: never Drug use: Never Substance use type: does not use Household members: none Housing: house Number of Children: 1 current occupation: Retired [employer] Current gender identity: female What is your relationship status?: Panel score (0-1 are the most socially isolated patients): 0 Do you feel safe at home: Yes Do you feel safe in your relationship?: Yes Additional Social history: lives alone
--- NOTE | 2024-12-17 11:15 | IN_ITS ---
PT Notes Visit Reasons: Tibia fracture Physical Therapy Inpatient Initial Evaluation Date: 12/17/2024 Referring Doctor: Luis F He PT Orders: PT CONSULT: PT evaluation and treat Precautions: PWB RLE with knee immobilizer Patient Profile/Admitting Diagnosis: Patient is 83-year-old female presented to the ED status post fall from a stepladder down 3 steps x-ray right lower extremity showed depressed fracture of right lateral tibial plateau. Ortho consulted patient placed in knee immobilizer with nonoperative intervention. Patient may partial weightbearing by Ortho with knee immobilizer in place at all times. X-ray right shoulder negative for fracture. Head CT negative for acute findings. PMHX: Closed fracture of tibial plateau (Acute) Contusion of right shoulder (Acute) Superficial bruising of chest wall (Acute) Gall stone pancreatitis (Acute) S/P laparoscopic cholecystectomy (Acute) Hx of gastroesophageal reflux (GERD) (Acute) History of hypertension (Acute) Traumatic closed displaced fracture of proximal end of right humerus with routine healing (Acute 11/16/15) Fracture of humeral head (Acute) IBS (irritable bowel syndrome) (Chronic) Diverticulosis (Chronic) GERD (gastroesophageal reflux disease) (Chronic) Cerebral aneurysm (Acute) 10/16/00 Pt has not had any current issues r/t to this dxHyperlipidemia (Chronic) Hypertension (Chronic) Subsequent ST elevation (STEMI) myocardial infarction of inferior wall (Acute) F/U with Cardiology in [facility] last seen 02/2020Macular degeneration (Chronic) Vertigo (Acute) Medical History Barretts esophagus Breast cancer in female Breast cancer screening Chronic back pain Diverticulosis of colon Eczema Fracture of proximal end of humerus Hematuria Hiatal hernia History of IBS Lichen planus Lumbar herniated disc STEMI (ST elevation myocardial infarction) Subarachnoid hemorrhage Surgical History Barretts Esophagus Breast, Mastectomy right, [place] pt. states it was not a mastectomy but a lumpectomyEndopyelotomy Retrograde herniated disc repair L5-S1 in 1973 for L leg radiculopathyPregnancy, Ectopic x2 Repair of inguinal hernia leftS/P dilatation of esophageal stricture numerous!Sigmoidoscopy x2 Social History/Home Situation:Pt resides alone in [place] home with stairs to enter. and to bathroom within home. Pt independent ADL, ambulation, meal prep, Equipment Owned/DME: cane Subjective: Pt reports she only has pain when she moves her arm or leg. She reports she would like to go to [facility] for rehab. Objective: [] General Observation: Thin female semireclined in bed with knee immobilizer to right LE, Oxygen at 1 L via NC Mental Status: A+Ox 4, cooperative, able to follow all instructions, agreeable to participate Pain: right knee and shoulder 4/10 with ROM ; denies at rest ROM: [] Right Upper Extremity: shoulder flexion 85 degrees abduction 60 degrees, ER 10 degrees, elbow and hand WNL Left Upper Extremity: WNL Right Lower Extremity: hip WFL, Knee NT ankle DF neutral Left Lower Extremity: WNL Strength: [] Right Upper Extremity:shoulder 3-/5, elbow 3/5 hand grasp good Left Upper Extremity: 4/5 Right Lower Extremity: hip 3-/5, knee NT ankle 3/5 Left Lower Extremity: grossly 4/5 Sensation: intact Bed Mobility/Transfers: [] Supine to sit Max A of 1 Sit to stand from elevated surface Mod A of 1 min A of 1 Stand to sit mod A of 2 ; assist to bring RLE Forward and lower to seat Bed to chair mod A of 2 stand pivot transfer with FWW; patient able to advance right lower extremity however unable to weight-bear through bilateral upper extremities and weight shift to unweight LLE for step. Pt able to pivot/swivel on left toes. for pivot. with assistance. Gait: unable to advance Balance: [] Static Sitting: Good Dynamic Sitting: Fair Static Standing: Fair- Dynamic Standing: Poor Special Tests: [] Mobility Limitations Standardized Measure [] [facility] AM-PAC 6 clicks Basic Mobility Inpatient Short Form: [] Raw Score:10 CMS Score: 76.75% Informed Consent/Education: Patient instructed in purpose of PT consult. Assessment: Patient presents with clinical signs and symptoms consistent with current/admitting diagnoses that have resulted to mobility limitations, gait instability, generalized weakness, and impairment of motor control as demonstrated by the following impairment level findings: 1. Decreased strength to BUE/BLE major muscle groups 2. Impaired standing balance 3. Limitation of joint range of motion in right knee and right shoulder 4. Limited weightbearing/PWB right LE with knee immobilizer 5. Pain right shoulder right knee Impairments are contributing to the following functional limitations: 1. Inability to safely ambulate without assistive device 2. Increase completion time for mobility ADL performance 3. Increased fall risk 4. Decline in bed mobility skills 5. Decline in transfer skills Patient is assessed as a moderate complexity based on the following: History: 83-year-old female with impairment level findings, functional limitations, and past medical history as indicated above Examination: Demonstrable impairment in strength, balance, and mobility level with underlying impairments and functional limitations as documented above Presentation: Evolving Decision Making: Moderate Goalsx1 week: 1. min A bed mobility 2. min A of 2 sit to from stand 3. min A of 2 bed to chair with FWW 4. amb >5 steps with FWW maintaining PWB RLE with knee immobilizer and mod A of 1 with w/c follow. Plan of Care/Treatment Plan: 1-2x/day, 7 days/week x 1 week. Plan of care has been reviewed with the SHAKE FEEDER providing the service under Physical Therapy direction. Initiate Physical Therapy intervention for strengthening, bed mobility, transfers, gait, stairs, balance training, use of assistive device. DISCHARGE RECOMMENDATIONS: Short-term SNF TREATMENT CODE/TIME: 29560, [id number], [id number] Thank you for the opportunity to participate in the care of this patient. Vania Casey, PT [facility]
--- NOTE | 2024-12-17 14:52 | W.PM.PROGNOT ---
Date of Service Date of service: 12/17/24 Time of Service: 14:52 Assessment and Plan Assessment and plan (1) Contusion of right shoulder: Status: Acute Assessment and plan: ongoing PT Orthopedic consult (2) Closed fracture of tibial plateau: Status: Acute Assessment and plan: seen by ortho with non-operative fracture Dx and plan for SNF 4- 6 weeks with restriction activity per ortho:partial weightbearing, toe-touch weightbearing, on the right lower extremity with a knee immobilizer and assistive device PT ongoing Ongoing tylenol, utram for pain Consider NSAIDs if not effective but pain is controlled (3) History of hypertension: Status: Acute Assessment and plan: Ongoing lisinopril and metoprolol (4) Hyperlipidemia: Status: Chronic Assessment and plan: Not on statin d/t intolerance Continue ezetimibe Discussed with Dr. Kennedy Subjective Subjective Patient reports: no new complaints, pain is less, tolerating liquids well, tolerating a regular diet and voiding w/o difficulty; denies diarrhea, nausea, vomiting, shortness of breath or fever Exam Const General: healthy appearing and no acute distress Orientation: oriented x3 Resp Effort & Inspection: normal respiratory effort and able to speak in complete sentences Cardio Rate: regular rate Rhythm: regular rhythm Heart Sounds: S1 normal and S2 normal Pulses: dorsalis pedis present GI Palpation: soft Auscultation: normal bowel sounds Neuro General: patient alert and patient awake Motor: no movement abnormalities noted Extrem Right lower extremity: abnormal to inspection (brace - weakness d/t pain) Other: RLE with brace r Psych Mental Status: mental status grossly normal Objective Last Vital Signs Temp 36.4 C L 12/17/24 07:45 Pulse 84 12/17/24 07:45 Resp 12 12/17/24 07:45 BP 156/57 H 12/17/24 07:45 Pulse Ox 95 12/17/24 07:45 Laboratory Results - last 24 hr 12/16/24 12/17/24 17:01 06:00 WBC 13.13 H 9.13 RBC 3.84 L 3.36 L Hgb 11.5 10.0 L Hct 37.6 33.2 L MCV 98 H 99 H MCH 29.9 29.8 MCHC 30.6 L 30.1 L RDW 12.2 12.3 Plt Count 191 162 MPV 10.1 11.2 H Immature Gran % 0.6 0.2 Neutrophils % 87.4 76.1 Lymphocytes % 6.9 12.7 Monocytes % 4.4 8.2 Eosinophils % 0.1 1.8 Basophils % 0.6 1.0 Nucleated RBC % 0.0 0.0 Absolute Neutrophils 11.48 H 6.95 H Absolute Lymphocytes 0.91 L 1.16 L Absolute Monocytes 0.58 0.75 Absolute Eosinophils 0.01 0.16 Absolute Basophils 0.08 0.09 Sodium 143 Potassium 4.1 Chloride 107 Carbon Dioxide 24.9 Anion Gap 11.1 H BUN 23 H Creatinine 1.0 Est GFR (CKD-EPI 2020) 55.90 Glucose 114 H Calcium 8.9 Total Bilirubin 0.7 AST 26 ALT 26 Alkaline Phosphatase 139 H Total Protein 7.7 Albumin 3.5 Lipase 37 Time Spent with Patient Time Spent with Patient: >50 minutes Time was spent: preparing to see the patient(eg.review tests), obtaining and/or reviewing separately otained hiistory, ordering medications,tests, procedures, referring, communicating with other health director career services, indepentently interpreting results, counseling the patient and care coordination
[2024-12-17 15:02] VITALS: BP 108/62; PULSE 86; RESP 14; TEMP 36.7; O2SAT 94
--- NOTE | 2024-12-17 17:50 | PT.INTREAT ---
PT Notes Visit Reasons: Tibia fracture Inpatient Physical Therapy Treatment Note [facility] Date: 12/17/2024 PRECAUTIONS: Right lower extremity with knee immobilizer PWB least amount the patient can perform per Dr Morales SUBJECTIVE: Patient reports she feels good and is glad she was out of bed all day OBJECTIVE: Seated in chair knee immobilizer in place oxygen via nasal cannula 1 L? PAIN: 4/10 with movement of lower extremity VITALS: ?Monitored via telemetry Therapeutic Activities (20996t[]): Direct one-on-one instruction in dynamic activities to improve functional performance. ? BED MOBILITY/TRANSFERS? Rolling L/R: Mod assist of 1 min assist of 1 ? Sit-supine: Mod assist of 1 ? Sit-stand: Mod assist of 2? Stand-sit: Mod assist of 2? Chair-bed: Pivot transfer with FWW toward left with mod assist of 2 Provided skilled cues and instruction on performance and technique throughout. ASSESSMENT: Patient tolerated out of bed to chair with no increase in pain. Patient with increased assist needed for pivot transfer due to difficulty pivoting/swiveling on left lower extremity with slipper on. Patient may benefit from use of nonskid socks for ease of turning foot. Patient unable to take step back with left lower extremity due to increased pain in right lower extremity if increases weightbearing beyond approximately 25%. PLAN: Continue per plan of care TREATMENT CODE/TIME: 67194/5:25 PM?5:41 PM DISCHARGE RECOMMENDATION: Short-term SNF
[2024-12-17 18:37] VITALS: O2SAT 92
[2024-12-17 20:21] VITALS: BP 118/71; PULSE 92; RESP 18; TEMP 36.5; O2SAT 90
[2024-12-17] MEDS: traMADol 50 MG TAB PO (20:23)
[2024-12-17] MEDS: LIDOCAINE Patch Removal 1 EACH TP (20:37)
[2024-12-17] MEDS: Acetaminophen 650 MG SUPP PR (22:43)
[2024-12-18] MEDS: traMADol 50 MG TAB PO (07:25)
[2024-12-18 07:52] VITALS: BP 148/61; PULSE 80; RESP 15; TEMP 37.1; O2SAT 95
--- NOTE | 2024-12-18 07:55 | PT.INTREAT ---
PT Notes Visit Reasons: Tibia fracture Inpatient Physical Therapy Treatment Note [facility] Date: 12/18/2024 PRECAUTIONS: Right lower extremity with knee immobilizer PWB least amount the patient can perform per Dr Morales SUBJECTIVE: Patient reports that her back hurts from being in bed. She'd like to get up to chair. OBJECTIVE: Lying in bed, knee immobilizer in place oxygen via nasal cannula 1 L? VITALS: Therapeutic Activities (60701c7): Direct one-on-one instruction in dynamic activities to improve functional performance. ? BED MOBILITY/TRANSFERS? Sit-supine: Min assist of 2? Sit-stand: Min assist of 2? Stand-sit: Min assist of 2. Assisted with RLE slide forward during transfer. ? Bed to chair: Stand step transfer with FWW toward left with min assist of 2, max cues, increased time to perform Provided skilled cues and instruction on performance and technique throughout. ASSESSMENT: Patient tolerated out of bed to chair with well managed pain and good understanding of weight bearing precautions. Continues to require significant assistance for transfers due to weight bearing status. PLAN: Continue per plan of care TREATMENT CODE/TIME: 51826/ [id number] DISCHARGE RECOMMENDATION: Short-term SNF
[2024-12-18] MEDS: Lidocaine 5% Patch 1 PATCH TP (07:58)
[2024-12-18] MEDS: Enoxaparin 40 MG/0.4 ML SYR SC (07:58)
[2024-12-18] MEDS: Metoprolol 50 MG TAB PO ×2 (07:59→20:08)
[2024-12-18] MEDS: Esomeprazole 40 MG CAPCR PO (07:59)
[2024-12-18] MEDS: Ezetimibe 10 MG TAB PO (07:59)
[2024-12-18] MEDS: Aspirin E.C. 81 MG TABEC PO (07:59)
[2024-12-18] MEDS: Lisinopril 5 MG TAB PO (07:59)
[2024-12-18] MEDS: Preservision CAPSULE 1 CAP PO (07:59)
[2024-12-18] MEDS: Normal Saline Flush 10 ML SYR IVP (07:59)
[2024-12-18 08:07] VITALS: O2SAT 96
--- NOTE | 2024-12-18 10:37 | PT.INTREAT ---
PT Notes Visit Reasons: Tibia fracture Inpatient Physical Therapy Treatment Note [facility] Date: 12/18/2024 PRECAUTIONS: Right lower extremity with knee immobilizer PWB least amount the patient can perform per Dr Morales SUBJECTIVE: Patient reports she feels good and is glad she got out of bed earlier OBJECTIVE: Seated in chair knee immobilizer in place O2 removed by nursing.? PAIN: 09/09 with movement of lower extremity VITALS: ?Monitored via telemetry Therapeutic Activities (50196): Direct one-on-one instruction in dynamic activities to improve functional performance. ? BED MOBILITY/TRANSFERS? Rolling L/R: Mod assist of 1 min assist of 1 ? Sit-supine: Mod assist of 1 ? Sit-stand: min assist of 2?with continuous cues ? ? x 4 trials from chair and commode? Stand-sit: Min assist of 2? ?x 4 trials patient requires cues for sequencing to bring right foot forward ? and to reach back with left upper extremity first then right upper extremity to lower up to seat/surface? Chair to/from commode: Pivot transfer with FWW with min assist of 2 with continuous cues for sequencing of swiveling on toe and heel left lower extremity. Patient unable to take step backwards therefore services after turn need to be brought to patient at this time Provided skilled cues and instruction on performance and technique throughout. TherEX: Ankle pumps bilateral hip abduction. Long arc quad left lower extremity marching left lower extremity. Bicep curls bilateral upper extremity x 10 reps active assistive right upper extremity shoulder flexion 2 sets 5 reps, active left upper extremity shoulder flexion 10 reps ASSESSMENT: Patient tolerated session well. Patient with increased assist needed to move surfaces behind her as she is not able to perform/ to take step back with left lower extremity due to increased pain in right lower extremity if increases weightbearing beyond approximately 25%. Patient limited by upper extremity strength and difficulty weightbearing enough through upper extremities to unweight right lower extremity at this time. Patient limited by chronic rotator cuff right upper extremity deficits and s/p right humerus fracture in past. PLAN: Continue per plan of care TREATMENT CODE/TIME: 30657 x 40 minutes for 3 units, 59412 x 20 minutes for 1 unit/0930?1030 DISCHARGE RECOMMENDATION: Short-term SNF
[2024-12-18 10:43] LABS: Bilirubin Negative (Negative); Blood Negative (Negative); Clarity Clear (Clear); Glucose Negative (Negative); Ketones Negative (Negative); Leukocyte Esterase Negative (Negative); Nitrite Negative (Negative); Specific Gravity 1.015 (1.005-1.025); pH 5.5 (5-8)
[2024-12-18 11:31] VITALS: BP 118/47; PULSE 73; RESP 12; TEMP 37.1; O2SAT 93
--- NOTE | 2024-12-18 14:09 | CHAPLAIN ---
Lisandra was up in the chair when I visited. Her daughter Renata, a former [employer] employee, was with her. Her granddaughter, Ashlie, works in the speciality clinics at [employer]. Lisandra was very pleasant and easily engaged in conversation telling me about bein a for 12 years, and living in [place], [place]. She said Renata lives close by and is very supportive. Renata is working with Care Management to find a watermelon harvesting supervisor care facility for Lisandra for rehab from her tibia fracture.
--- NOTE | 2024-12-18 17:32 | PDOC.CMPRO ---
Date of service: 12/18/24 Time of Service: 17:32 Care Management Progress Note Progress Note Text Progress Note Text: Lisandra was visited by CM a couple of times today to relay information. Lisandra was offered, and has accepted a bed at [facility] for tomorrow. Lisandra's daughter, Veronica was visiting, and is aware of and accepting of the plan as well. Granddaughter, Ashlie, has also been kept up to date by CM. Lisandra is extremely pleasant. She wishes she could go straight home, but is very willing to participate in her rehabilitation. Contact at [facility] is Elizabeth Gorman [phone]. [email or web address]. Nurses station for [facility] - Julián hebert [phone] Elizabeth was sent today's PT note from the morning session, as PM session note was not complete at that time. Discharge Potential Discharge Needs: Other (transfer to [facility] and f/u with their provider.) Anticipated Barriers to Discharge: None Identified Patient/Family Education Needs: Review discharge instructions, discuss Ask Me Three Transportation: [facility] Transportation: Wheel chair van (will need to keep leg elevated/straight per PT. ) Plan: Lisandra will transfer to [facility] tomorrow for continued rehab. She will f/u with the facility provider, and continue with her plan of care. Lisandra will transfer via [facility] wheelchair van as recommended by PT (vs. private ride). CM will follow through transfer. Social Determinants of Health Screening Social Determinants of health last assessed in clinic: 12/18/24 Will the Patient Participate in the Screening?: Yes Do you worry about having a steady place to live?: no Problems where you live: no known problems In the past 12 months, have you had to go without electric, gas, oil or water in your home?: no 1. Within the past 12 months, we worried whether our food would run out before we got money to buy more.: Never true 2. Within the past 12 months, the food we bought just didn't last and we didn't have money to get more.: Never true Has lack of transportation kept you from medical appointments or from doing things needed for daily living?: no Has anyone in your life made you feel unsafe or unsupported?: no How hard is it for you to pay for the very basics like food, housing, medical care, and heating? Would you say it is:: Not hard at all Do you want help finding or keeping work or a job?: I do not need or want help If for any reason you need help with day-to-day activities such as bathing, preparing meals, shopping, managing finances, etc., do you get the help you need?: I don?t need any help How often do you feel lonely or isolated from those around you?: Never Do you speak a language other than Yakut at home?: No Does the patient want assistance with any of the above?: No
--- NOTE | 2024-12-18 19:22 | PGE_ITS ---
Date of Service Date of service: 12/18/24 Time of Service: 15:30 Assessment and Plan Assessment and plan (1) Contusion of right shoulder: Status: Acute Assessment and plan: ongoing PT Orthopedic consult (2) Closed fracture of tibial plateau: Status: Acute Assessment and plan: Followed by Dr. Morales Plan: non-operative fracture Dx and plan for SNF 4- 6 weeks with restriction activity : partial weightbearing, toe-touch weightbearing, on the right lower extremity with a knee immobilizer and assistive device Ongoing PT Continue tylenol, utram for pain (3) History of hypertension: Status: Acute Assessment and plan: On lisinopril and metoprolol (4) Hyperlipidemia: Status: Chronic Assessment and plan: Continue ezetimibe Discussed with Dr. Kennedy Subjective Subjective Patient reports: no new complaints, pain is less, tolerating liquids well, tolerating a regular diet, voiding w/o difficulty and no bowel movement; denies diarrhea, nausea, vomiting, shortness of breath or fever Exam Const General: no acute distress Orientation: oriented x3 Resp Effort & Inspection: normal respiratory effort Cardio Rate: regular rate Rhythm: regular rhythm Heart Sounds: S1 normal and S2 normal Pulses: dorsalis pedis present GI Palpation: soft Auscultation: normal bowel sounds Neuro General: patient alert and patient awake Motor: no movement abnormalities noted Extrem Right lower extremity: abnormal to inspection (brace - weakness d/t pain) Other: RLE with brace r Psych Mental Status: mental status grossly normal Objective Last Vital Signs Temp 37.1 C 12/18/24 11:31 Pulse 73 12/18/24 11:31 Resp 12 12/18/24 11:31 BP 118/47 L 12/18/24 11:31 Pulse Ox 93 12/18/24 11:31 Laboratory Results - last 24 hr 12/18/24 10:28 Urine Color Yellow Urine Clarity Clear Urine pH 5.5 Ur Specific [place] 1.015 Urine Protein Negative Urine Ketones Negative Urine Blood Negative Urine Nitrite Negative Urine Bilirubin Negative Urine Urobilinogen 1.0 H Ur Leukocyte Esterase Negative Urine Glucose Negative Time Spent with Patient Time Spent with Patient: >50 minutes Time was spent: preparing to see the patient(eg.review tests), obtaining and/or reviewing separately otained hiistory, ordering medications,tests, procedures, referring, communicating with other health health care attorney, indepentently interpreting results, counseling the patient and care coordination
[2024-12-18 19:49] VITALS: BP 117/57; PULSE 90; RESP 17; TEMP 37.2; O2SAT 92
[2024-12-18] MEDS: Milk of Magnesia 30 ML CUP PO (20:08)
[2024-12-18] MEDS: Docusate Sodium 100 MG CAP PO (20:08)
[2024-12-18] MEDS: LIDOCAINE Patch Removal 1 EACH TP (20:09)
[2024-12-19 07:30] VITALS: BP 158/59; PULSE 82; RESP 14; TEMP 35.7; O2SAT 96
[2024-12-19] MEDS: Aspirin E.C. 81 MG TABEC PO (07:47)
[2024-12-19] MEDS: Ezetimibe 10 MG TAB PO (07:47)
[2024-12-19] MEDS: Lisinopril 5 MG TAB PO (07:48)
[2024-12-19] MEDS: Esomeprazole 40 MG CAPCR PO (07:48)
[2024-12-19] MEDS: Metoprolol 50 MG TAB PO (07:48)
[2024-12-19] MEDS: Preservision CAPSULE 1 CAP PO (07:49)
[2024-12-19] MEDS: Enoxaparin 40 MG/0.4 ML SYR SC (07:49)
[2024-12-19] MEDS: Lidocaine 5% Patch 1 PATCH TP (07:49)
--- NOTE | 2024-12-19 09:00 | RT.EKG_ITS ---
APPROVED REPORT Exam: Resting ECG Reason for Exam: dizziness, vomiting Patient Location: I HR:78 bpm ECG Measurements Heart Rate 78 AXIS ME 163 P 18 QRSd 77 QRS -11 QT 364 T -9 QTc 416 Conclusion Sinus rhythm...normal P axis, V-rate 60- 99 Inferior infarct, age indeterminate...Q>35mS, T neg, II III aVF
--- NOTE | 2024-12-19 09:09 | NUR.NOTE ---
Nursing Note: Pt's granddaughter is in room with her and nervous about her current s/s: nausea, dizziness. She is requesting an EKG be done. VS done and message sent to ptovider with request d/t past hx of STEMI. Primary nurse notified.
[2024-12-19 09:10] VITALS: BP 149/54; PULSE 74; TEMP 36.1; O2SAT 90
[2024-12-19] MEDS: LORazepam 0.5 MG TAB PO (09:19)
[2024-12-19] MEDS: Ondansetron 4 MG/2 ML VIAL IVP (09:19)
[2024-12-19 09:45] LABS: Abs Immature Grans 0.04 10^3/uL (0.0-0.06); Absolute Basophil Count 0.07 10^3/uL (0.0-0.2); Absolute Eosinophil Count 0.15 10^3/uL (0.0-0.7); Absolute Lymphocyte Count 0.82 10^3/uL (1.2-3.4); Absolute Monocyte Count 0.64 10^3/uL (0.1-0.8); Absolute Neutrophil Count 7.65 10^3/uL (1.2-6.7); Basophils % 0.7 %; Eosinophils % 1.6 %; HCT 36.8 % (36.0-46.0); HGB 11.1 g/dL (11.2-15.7); Immature Grans % 0.4 %; Lymphocytes % 8.8 %; MCH 29.5 pg (27.0-33.0); MCHC 30.2 % (32.0-36.0); MCV 98 fL (80-95); MPV 10.3 fL (8.0-11.0); Monocytes % 6.8 %; Neutrophils % 81.7 %; Platelet Count 160 10^3/uL (130-400); RBC 3.76 10^6/uL (3.93-5.22); RDW-SD 43.2 fL; WBC 9.37 10^3/uL (4.4-10.8)
[2024-12-19 10:03] LABS: Anion Gap 6.6 mmol/L (3-11); BUN 20 mg/dL (7-18); CO2 27.4 mmol/L (21.0-32.0); CREATININE 0.9 mg/dL (0.55-1.02); Calcium 8.8 mg/dL (8.5-10.1); Chloride 105 mmol/L (98-107); Estimated GFR 63.43 (mL/min/1.73m2); Glucose 131 mg/dL (74-106); Potassium 4.2 mmol/L (3.5-5.1); Sodium 139 mmol/L (136-145)
--- NOTE | 2024-12-19 10:08 | DSE_ITS ---
Date of service: 12/19/24 Time of Service: 10:08 DS: Diagnosis Discharge Diagnosis (1) Contusion of right shoulder: Status: Acute (2) Closed fracture of tibial plateau: Status: Acute (3) History of hypertension: Status: Acute (4) Hyperlipidemia: Status: Chronic Discharge Plan Disposition [facility] Disposition[facility] Condition: Stable Condition: Improving Discharge Details Reason For Visit: Tibia fracture Admit Date/Time: 12/16/24 21:47 Admit Provider: Leo He Attending Provider: Leo He Primary Care Provider: Travon Cedeno Hospital Course Hospital Course: 83 yo female presented to the ED after a mechanical fall presented to the ED on 12/16/24. She noticed severe pain in her right leg to the point where she was not able to get up immediately. Work-up in the ED was positive for right shoulder contusion w/o fracture, and a closed right tibial plateau fracture.The patient was admitted to the medical surgical floor with othopedic consultation, physical therapy and pain management. The posterolateral right tibial plateau fracture with some depression posterolaterally was evaluated as non-operable as per orthopedic surgery consultation with recommendations for knee immobilizer, partial weightbearing, toe-touch weightbearing, or what ever she can tolerate however not full weightbearing, ongoing PT and assistive device; restriction for approximately 4 to 6 weeks and then slowly increase activities including range of motion and weightbearing. Pain was controlled on oral pain medicines, nausea treated with ondansteron, bowel meds received for constipation. On the day of discharged the patient was hemodymically satble and will have a follow- uup with PCP within 7 days of daicharged and orthopedic services within- [address] Kennedy Home Meds and New Rx's Prescriptions: New magnesium hydroxide [Milk of Magnesia] 400 mg/5 mL Suspension 30 ml PO HS PRNQty: 355 0RF tramadol 50 mg Tablet 25 mg PO Q6H PRN PRNQty: 10 0RF acetaminophen 500 mg capsule 1,000 mg PO TID Qty: 30 0RF docusate sodium [Colace] 100 mg capsule 100 mg PO DAILY Qty: 7 0RF Continued valacyclovir 1 gram tablet 1,000 mg PO TID Qty: 21 0RF lisinopril 5 mg tablet 5 mg PO DAILY ezetimibe [Zetia] 10 mg tablet 10 mg PO DAILY esomeprazole magnesium [Nexium] 40 MG capsule,delayed release(DR/EC) 40 mg PO DAILY Eye Vitamin and Minerals 1 EACH tablet 1 ea PO DAILY Patient Comments: ARED2 (Prezavision) for macular degeneration aspirin [Aspir-81] 81 MG tablet,delayed release (DR/EC) 81 mg PO DAILY metoprolol tartrate 25 MG tablet 50 mg PO BID nitroglycerin [Nitrostat] 0.4 MG tablet, sublingual 0.4 mg Sublingual Q5 MIN PRN X3 PRNQty: 0 0RF lidocaine [Lidoderm] 5 % adhesive patch,medicated 1 patch topical DAILY Qty: 1 0RF Rx Instructions: leave on most painful area for up to 12 hrs Discharge Instructions Referrals: Travon Cedeno [Primary Care Provider, Medicine] Referral Note: follow-up with 7 days of discharge please Valente Morales MD [ [facility] STAFF PHYSICIAN, Orthopaedic Surgical] Referral Note: follow-up with 4-6 weeks of discharge, please Activity:: Activity as Tolerated Equipment/Supplies:: Walker Diet:: heart healthy DS: Summary Time Spent with Patient providing and/or coordinating discharge services: Greater than 30 minutes Status at Discharge Functional status at discharge: uses cane/walker Overall status at discharge: patient is progressing back to baseline Mental Status: mental status grossly normal Speech and Movement: speech and movement normal Mood: congruent mood Affect: normal affect Exam Narrative Exam Narrative: 82 years old female patient looking older than stated age, in no acute distress, alert oriented x 4, no focal neurological deficit, moves all 4 extremities, clear lungs, no JVD, S1-S2 regular no murmurs, abdomen is nondistended, soft and nontender overall with minimal less lower quadrant sensitivity reported on palpation, no bladder distention Psych Mental Status: mental status grossly normal Speech and Movement: speech and movement normal Mood: congruent mood Affect: normal affect DS: Data Vitals/I&O Vitals and I&O: Vital Signs Temperature 36.1 C L 12/19/24 09:10 Temperature Source Tympanic 12/19/24 09:10 Pulse 74 12/19/24 09:10 Pulse Rhythm Regular 12/16/24 22:55 Respiratory Rate 14 12/19/24 07:30 Respiratory Effort Normal, Non-Labored 12/16/24 22:55 Respiratory Depth Normal 12/16/24 22:55 Respiratory Pattern Normal 12/16/24 22:55 Blood Pressure 149/54 H 12/19/24 09:10 Blood Pressure Mean 85 12/19/24 09:10 Blood Pressure Position Sitting 12/16/24 15:59 Pulse Oximetry 90 L 12/19/24 09:10 Oxygen Delivery Method Room Air 12/19/24 09:10 Oxygen Flow Rate 0 12/19/24 09:10 Pain Level 0 12/19/24 09:10 Intake & Output 12/18/24 12/18/24 12/19/24 11:59 23:59 11:59 Intake Total 240 / 790 550 / 790 Output Total 400 / 400 250 / 250 Balance 240 / 390 150 / 390 -250 / -250 Intake: IV Oral 240 / 780 540 / 780 Output: Urine 400 / 400 250 / 250 Other: Urine Color Straw Straw Urine Appearance Clear Urine Odor Normal Comment asked patient to void but she said she does not need to Stool Size Large Stool Characteristics Soft Brown Data Completed and Pending Labs on day of discharge: Labs from last 24 hours 12/19/24 12/18/24 09:38 10:28 WBC 9.37 RBC 3.76 L Hgb 11.1 L Hct 36.8 MCV 98 H MCH 29.5 MCHC 30.2 L RDW 12.0 Plt Count 160 MPV 10.3 Immature Gran % 0.4 Neutrophils % 81.7 Lymphocytes % 8.8 Monocytes % 6.8 Eosinophils % 1.6 Basophils % 0.7 Nucleated RBC % 0.0 Absolute Neutrophils 7.65 H Absolute Lymphocytes 0.82 L Absolute Monocytes 0.64 Absolute Eosinophils 0.15 Absolute Basophils 0.07 Sodium 139 Potassium 4.2 Chloride 105 Carbon Dioxide 27.4 Anion Gap 6.6 BUN 20 H Creatinine 0.9 Est GFR (CKD-EPI 2020) 63.43 Glucose 131 H Calcium 8.8 Urine Color Yellow Urine Clarity Clear Urine pH 5.5 Ur Specific [place] 1.015 Urine Protein Negative Urine Ketones Negative Urine Blood Negative Urine Nitrite Negative Urine Bilirubin Negative Urine Urobilinogen 1.0 H Ur Leukocyte Esterase Negative Urine Glucose Negative PFSH All Active Problems Closed fracture of tibial plateau (Acute) Contusion of right shoulder (Acute) Superficial bruising of chest wall (Acute) Gall stone pancreatitis (Acute) S/P laparoscopic cholecystectomy (Acute) Hx of gastroesophageal reflux (GERD) (Acute) History of hypertension (Acute) Traumatic closed displaced fracture of proximal end of right humerus with routine healing (Acute 11/16/15) Fracture of humeral head (Acute) IBS (irritable bowel syndrome) (Chronic) Diverticulosis (Chronic) GERD (gastroesophageal reflux disease) (Chronic) Cerebral aneurysm (Acute) 10/16/00 Pt has not had any current issues r/t to this dx Hyperlipidemia (Chronic) Hypertension (Chronic) 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 last seen 02/2020 Macular degeneration (Chronic) Vertigo (Acute) Medical History Hiatal hernia Fracture of proximal end of humerus Eczema History of IBS Chronic back pain Hematuria Lumbar herniated disc Diverticulosis of colon Lichen planus Subarachnoid hemorrhage Barretts esophagus Breast cancer in female STEMI (ST elevation myocardial infarction) Breast cancer screening Surgical History S/P dilatation of esophageal stricture numerous! herniated disc repair L5-S1 in 1973 for L leg radiculopathy Sigmoidoscopy x2 , Ectopic x2 Repair of inguinal hernia left Endopyelotomy Retrograde Breast, Mastectomy right, CA pt. 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 Current gender identity: female What is your relationship status?: Panel score (0-1 are the most socially isolated patients): 0 Do you feel safe at home: Yes Do you feel safe in your relationship?: Yes Additional Social history: lives alone Time Spent with Patient Time Spent with Patient: >85 minutes Time was spent: preparing to see the patient(eg.review tests), obtaining and/or reviewing separately otained hiistory, ordering medications,tests, procedures, referring, communicating with other health outdoor emergency care technician, indepentently interpreting results, counseling the patient and care coordination
[2024-12-19 10:35] VITALS: BP 120/67; BP 129/50; BP 92/80; PULSE 78; PULSE 83
--- NOTE | 2024-12-19 10:45 | PTTR_ITS ---
PT Notes Visit Reasons: Tibia fracture Inpatient Physical Therapy Treatment Note [facility] Date: 12/19/2024 PRECAUTIONS: Right lower extremity with knee immobilizer PWB least amount the patient can perform per Dr Morales SUBJECTIVE: Patient reports she feels a little nervous about leaving today. OBJECTIVE: Seated in chair knee immobilizer in place .? PAIN: 3/10 with movement of lower extremity VITALS: ?Monitored via telemetry orthostatic: supine 129/50 78HR sit 92/80 78HR stand 120/67 83HR Therapeutic Activities (86207): Direct one-on-one instruction in dynamic activities to improve functional performance. ? BED MOBILITY/TRANSFERS? Rolling L/R: Mod assist of 1 min assist of 1 ? Sit-supine: Mod assist of 1 ? Sit-stand: min assist of 1?with continuous cues ? ? x 4 trials from chair,bed and commode? Stand-sit: Min assist of 1? ?x 4 trials patient requires cues for sequencing to bring right foot forward ? and to reach back with left upper extremity first then right upper extremity to lower up to seat/surface? Chair to/from commode: Pivot transfer with FWW with min assist of 1 with continuous cues for sequencing of swiveling on toe and heel left lower ext remity. Patient unable to take step backwards therefore services after turn need to be brought to patient at this time Provided skilled cues and instruction on performance and technique throughout. TherEX: Ankle pumps bilateral hip abduction. Long arc quad left lower extremity marching left lower extremity. Bicep curls bilateral upper extremity x 10 reps active assistive right upper extremity shoulder flexion 2 sets 5 reps, active left upper extremity shoulder flexion 10 reps ASSESSMENT: Patient tolerated session well.Pt able to progress to 1 assist for sit to from stand however continues to be unable to to unweight LLE to take step d/t pain in Rknee and impaired strength RUE. Patient with increased assist needed to move surfaces behind her as she is not able to perform/ to take step back with left lower extremity . Pt is very motivated to participate. Pt unable to take steps forward as well. Pt with improved comfort when knee immobilizer is readjusted throughout the day to ensure it has not slid down thereby maintaining knee in extension. Patient limited by chronic rotator cuff right upper extremity deficits and s/p right humerus fracture in past. PLAN: Continue per plan of care TREATMENT CODE/TIME: 70388 x 24 minutes for 2 units, 54408 x 20 minutes for 1 unit/4437-5090 DISCHARGE RECOMMENDATION: Short-term SNF
--- NOTE | 2024-12-19 11:08 | CMDISCH_ITS ---
Date of service: 12/19/24 Time of Service: 11:08 LACE Index Scoring Tool Questions: Length of Stay (in days): 3 Was the patient admitted via the E.D.?: Yes Comorbidities: Previous M.I., Cerebrovascular Disease and Any Tumor E.D. Visits: 2 Answers: Total Score: 13 Risk of Readmission: High Risk Care Management Discharge Plan Reason for Hospitalization: right tibial plateau fracture Discharge Plan: Lisandra will be transferred to [facility] later this morning. She will f/u with the facility provider and with orthopedics. Lisandra will transport via [facility] wheelchair van as coordinated by CM. She will travel with her leg elevated per PT. Lisandar and family are aware of this transfer and in full support. Patient/Family Education Needs: Review of discharge instructions, activity, limitations, and discuss Ask me 3. Services Needed at Discharge: Group Home Facility (for STR)
--- NOTE | 2024-12-25 13:57 | NUR.NOTE ---
Access chart to print provider note for [facility] billing. Nursing Note:
== END 2024-12-19 11:38 | disposition skilled nursing facility (03) ==
LOC: ER 21:26 → MS 22:43
PROVIDERS: Admitting Provider Family Medicine; Emergency Provider Physician Assistant; PCP Physician Assistant; Responsible Provider Nurse Practitioner Acute Care; Visit Provider Family Medicine
DX: S82.141A Displaced bicondylar fracture of right tibia, initial encounter for closed fracture (principal); S40.011A Contusion of right shoulder, initial encounter; M11.261 Other chondrocalcinosis, right knee; E78.5 Hyperlipidemia, unspecified; M17.11 Unilateral primary osteoarthritis, right knee; S20.211A Contusion of right front wall of thorax, initial encounter; W11.XXXA Fall on and from ladder, initial encounter; Z79.899 Other long term (current) drug therapy; I10 Essential (primary) hypertension; K58.9 Irritable bowel syndrome, unspecified; K21.9 Gastro-esophageal reflux disease without esophagitis; K57.90 Diverticulosis of intestine, part unspecified, without perforation or abscess without bleeding; I25.2 Old myocardial infarction; R42 Dizziness and giddiness; I67.1 Cerebral aneurysm, nonruptured; Z85.3 Personal history of malignant neoplasm of breast
CPT/HCPCS: 00123; 36415; 73562; 74177; 80048; 80053; 83690; 96372; 96374; 97110; 97162; 97530; 99222; 99285; J1650; 70450; 71260; 72125; 73030; 73590; 73610; 73700; 81003; 85025; 93005; 93010; 99223; 99233; 99239; G0378; J2405; J3490

== ENCOUNTER 2025-01-16 09:58 | Outpatient (CLI) | payer MEDICARE, BC, SELFPAY ==
--- NOTE | 2025-01-16 09:15 | DI.RAD_ITS ---
Exam(s) XR KNEE RT 2V AP,LAT EXAM: XR KNEE RT 2V AP,LAT CLINICAL HISTORY: F/U R TIBIAL PLATEAU FX. TECHNIQUE: 2D digital imaging was performed of the right knee. Two views obtained. AP and lateral views were obtained. COMPARISON: CR XR KNEE RT 3V AP,LAT,RITA from 12/16/2024 FINDINGS: BONES: There is no change in alignment of the depressed lateral tibial plateau fracture. No bony destructive lesion is seen. JOINTS: There is chondrocalcinosis. No joint effusion is seen. SOFT TISSUE: Atherosclerotic calcification is present. IMPRESSION: Stable alignment of the depressed lateral tibial plateau fracture. DATA REPOSITORY: RADIATION DOSE DELIVERED:
== END 2025-01-16 09:59 | disposition home or self-care (01) ==
LOC: DIORS 09:58
PROVIDERS: PCP Physician Assistant; Referring Provider Physician Assistant; Visit Provider Student in an Organized Health Care Education/Training Program
DX: S82.142D Displaced bicondylar fracture of left tibia, subsequent encounter for closed fracture with routine healing (principal); X58.XXXD Exposure to other specified factors, subsequent encounter
CPT/HCPCS: 99213; 73560

== ENCOUNTER 2025-02-10 13:53 | Outpatient (CLI) | payer MEDICARE, BC, SELFPAY ==
--- NOTE | 2025-02-10 | DI.US_ITS ---
Exam(s) US LOWER EXTREMITY VENOUS RT EXAM: US LOWER EXTREMITY VENOUS RT CLINICAL HISTORY: LOCALIZED SWELLING OF R LOWER LEG, R22.41. TECHNIQUE: Lower extremity venous ultrasound performed using grayscale, color- flow, and spectral Doppler analysis. COMPARISON: No exams were available for comparison FINDINGS: The common femoral, femoral and popliteal veins demonstrate normal compressibility, augmentation, and color Doppler. The posterior tibial and peroneal veins are patent. No saphenous vein thrombosis or other superficial venous thrombosis is seen. No hematoma or Strickland's cyst is seen. There is edema in the subcutaneous fat. IMPRESSION: Edema. No evidence of DVT. DATA REPOSITORY:
== END 2025-02-10 14:13 ==
LOC: DI 13:54
PROVIDERS: PCP Physician Assistant; Visit Provider Physician Assistant
DX: R22.41 Localized swelling, mass and lump, right lower limb (principal)
CPT/HCPCS: 93971

== ENCOUNTER 2025-02-27 11:30 | Outpatient (CLI) | payer MEDICARE, BC, SELFPAY ==
--- NOTE | 2025-02-27 10:30 | DI.RAD_ITS ---
Exam(s) XR KNEE RT 2V AP,LAT EXAM: XR KNEE RT 2V AP,LAT CLINICAL HISTORY: F/U R TIBIAL PLATEAU FX. TECHNIQUE: 2D digital imaging was performed of the right knee. Two views obtained. AP and lateral views were obtained. COMPARISON: CR XR KNEE RT 2V AP,LAT from 01/16/2025 FINDINGS: BONES: There is continued healing of the patient's lateral tibial plateau fracture. No new fracture is seen. The bones are osteopenic. No bony destructive lesion is seen. JOINTS: There is joint space narrowing in the femoral tibial joint. Chondrocalcinosis is present in the medial femoral tibial joint. There is a small joint effusion. SOFT TISSUE: Atherosclerotic calcification is present. IMPRESSION: Continued healing of the lateral tibial plateau fracture. DATA REPOSITORY: RADIATION DOSE DELIVERED:
== END 2025-02-27 11:31 | disposition home or self-care (01) ==
LOC: DIORS 11:30
PROVIDERS: PCP Physician Assistant; Referring Provider Physician Assistant; Visit Provider Student in an Organized Health Care Education/Training Program
DX: S82.141D Displaced bicondylar fracture of right tibia, subsequent encounter for closed fracture with routine healing (principal); X58.XXXD Exposure to other specified factors, subsequent encounter
CPT/HCPCS: 99212; 73560

== ENCOUNTER → 2025-05-16 02:57 | Outpatient (CLI) | payer MEDICARE, BC, SELFPAY ==
--- NOTE | 2025-05-16 12:11 | DI.MAMMO_ITS ---
Exam(s) US BREAST RT COMPLETE MG MAMMO SCREENING 60 MIN DUR EXAM: MG MAMMO SCREENING 60 MIN DUR AND COMPLETE RIGHT BREAST ULTRASOUND CLINICAL HISTORY: SCREENING MAMMO Z12.31 PERS HX BREAST CANCER Z85.3. TECHNIQUE: Bilateral full field digital CC and MLO mammographic images were obtained with 3D tomosynthesis and utilizing computer aided detection (CAD). ADDITIONAL SPOT COMPRESSION 3D TOMOSYNTHESIS VIEW of the right breast was performed. COMPLETE RIGHT BREAST ULTRASOUND WAS PERFORMED including all 4 quadrants as well as the right axilla. COMPARISON: Prior mammograms were reviewed. This 84-year-old patient underwent right breast lumpectomy for malignancy in 2008 FINDINGS: There are no new significant radiograph findings in left breast. In the right breast there is an area of subtle architectural distortion evident in the lateral aspect of the right breast seen on the CC view (less evident on the MLO view), located 5 cm in from the nipple in the lateral aspect of the right breast on the CC view. There are few small microcalcifications also evident at this region. This area is suspicious. We proceeded with ultrasound COMPLETE RIGHT BREAST ULTRASOUND: At the 10 o'clock position there is a concerning irregular hypoechoic taller than wider nodule which exhibits neutral and slightly decreased through transmission, this corresponding to the finding described above on the mammogram. This is suspicious for malignancy. No other focal findings evident in all 4 quadrants of the right breast. Scanning of the right axilla is negative for significant adenopathy. IMPRESSION: At the 10 o'clock position of the right breast there is a subtle area of architectural distortion on the mammogram and a concerning irregular hypoechoic nodule at this location on the ultrasound which was performed immediately following today's mammogram. Suspicious for malignancy. Biopsy recommended. Findings and recommendations were discussed by myself with the patient and her daughter today. Findings and recommendations were called by myself to [facility] ordering physician's office 05/16/2025 at 1:10 p.m. The report was given to the office nurse as the ordering provider was not in today. BI-RADS Category 5 - Highly Suggestive of Malignancy: Biopsy recommended Breast Density - Category C - The breast are heterogeneously dense, which may obscure small masses. Breast density Category C or D implies that the patient has dense breast tissue. Dense breast tissue can make it harder to find cancer on a mammogram. Dense breast tissue is also associated with an increased risk of breast cancer. This information about the result of the mammogram report was provided to the patient to raise their awareness. Use this report when you speak with the patient about their risks for breast cancer, which includes their family history. At that time, you may recommend additional screening tests (Ultrasound or MRI) as these tests may add significant information. A negative radiographic report should not delay biopsy if a dominant or clinically suspicious mass is present. Up to ten percent of cancers are not identified on mammography. A negative report may reinforce clinical impression. Adenosis and dense breasts may obscure an underlying neoplasm. False positive reports average 6 to 10%. Patient will receive a letter notifying them of these results.
== END ==
LOC: DI 02:57
PROVIDERS: PCP Physician Assistant; Visit Provider Physician Assistant
DX: R92.8 Other abnormal and inconclusive findings on diagnostic imaging of breast (principal); Z12.31 Encounter for screening mammogram for malignant neoplasm of breast
CPT/HCPCS: 76642; 77063; 77067

== ENCOUNTER → 2025-06-20 08:02 | Outpatient (BNVA) | payer MEDICARE, BC, SELFPAY | PROVIDERS: PCP Physician Assistant; Referring Provider Physician Assistant; Visit Provider Physician Assistant | DX: S82.141D Displaced bicondylar fracture of right tibia, subsequent encounter for closed fracture with routine healing (principal); X58.XXXD Exposure to other specified factors, subsequent encounter; M17.11 Unilateral primary osteoarthritis, right knee; R60.0 Localized edema | CPT/HCPCS: 99213 ==